=== PATIENT | female | born 1995 | race Caucasian/White ===

== ENCOUNTER 2020-11-26 11:30 | Emergency (ER) | payer OTHER, MEDICAID, SELFPAY ==
[2020-11-26 11:31] VITALS: BP 137/85; PULSE 59; RESP 16; TEMP 36.4; O2SAT 99; BMI 27.6
--- NOTE | 2020-11-26 11:52 | CT_ITS ---
STUDY: CT ABDOMEN AND PELVIS WITHOUT CONTRAST REASON FOR EXAM: Female, 25 years old. RUQ pain, abdominal distention -- PO CONTRAST. The patient received IV contrast is beginning at a different institution. RADIATION DOSAGE (If Supplied By Facility): CTDIvol = ( 9.07 ) mGy, DLP = ( 471.37 ) mGycm TECHNIQUE: Transaxial images were obtained from the dome of the diaphragm to the symphysis pubis without oral contrast, and without intravenous contrast. Sagittal and coronal images were reconstructed. Individualized dose optimization techniques were used for this CT. COMPARISON: None. FINDINGS: Minimal degree of increased markings at the right lung base suggestive of dependent atelectasis. The visualized portions of the heart are within normal limits. Normal liver. The gallbladder is not visualized and most likely secondary to prior cholecystectomy. Normal spleen. Normal pancreas. Normal bilateral adrenal glands. Multiple small areas of the calcifications seen in the right renal cortex. Focal calcific density is also seen in the upper pole cortex of the left kidney. Medullary sponge kidney should be ruled out. There is no evidence of ureteral obstruction. Normal left kidney. Normal visualized stomach. Normal small intestine. Normal colon. The appendix is visualized and appears normal. Normal abdominal aorta. Normal inferior vena cava. Normal retroperitoneum. Normal urinary bladder. Normal abdominal wall. Normal osseous structures. CT/Abdomen/Pel W ORAL Cont Only IMPRESSION: Multifocal areas of increased attenuation in the cortex of both kidneys suggestive of possible medullary sponge kidneys. Electronically Signed: Austin Randolph MD at 13:46 EDT , Service support ,
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
[2020-11-26 12:36] LABS: Mucous, Urine 0 SEEN /hpf (<or=2+)
[2020-11-26 12:39] LABS: Color, Urine Yellow (Yellow); Glucose, Dipstick Normal (Normal); Ketone-Dipstick Negative (Negative); Leukocyte Esterase-Dipstick 25 /ul (Negative); Nitrite-Dipstick Negative (Negative); Occult Blood-Urine 250 /ul (Negative); Protein-Dipstick Negative (Negative); Specific Gravity, Urine 1.015 (1.002-1.030); Urine Bilirubin Dipstick Negative (Negative); Urine Clarity Clear (Clear); Urine Urobilinogen Normal (Normal)
[2020-11-26 12:40] LABS: Absolute Lymphocyte Count 2.22 X10^3/uL (0.83-4.51); Absolute Neutrophil Count 6.3 X10^3/uL (2.0-7.7); Basophil# 0.05 X10^3/uL; Basophil% 0.5 % (0-1); Eosinophil# 0.15 X10^3/uL; Eosinophils% 1.6 % (0-5); Hemoglobin 13.5 g/dL (12.0-15.0); Lymphocyte # 2.22 X10^3/ul (0.83-4.51); Lymphocyte % 23.8 % (19-41); Mean Corp Hgb Conc 32.1 g/dL (32-36); Mean Corpuscular Hgb 28.8 pg (27.0-32.0); Mean Corpuscular Volume 89.7 fL (81-99); Mean Platelet Vol. 10.8 fl (6.2-12.0); Monocyte% 6.4 % (0-10); NRBC Flagged by Analyzer 0 % (0-5); Neutrophil # 6.26 X10^3/uL (2.7-7.7); Neutrophil % 67.4 % (47-70); POSITIVE COUNT YES; Platelet Count 241 K/mm3 (150-450); RBC Distribution Width CV 11.9 % (11.6-14.6); RBC Distribution Width SD 38.5 fl (35.1-43.9); Red Blood Count 4.68 M/mm3 (4.2-5.4); White Blood Count 9.3 K/mm3 (4.4-11.0)
[2020-11-26] MEDS: Ondansetron 4 MG/2 ML Vial IV (12:40)
[2020-11-26] MEDS: Famotidine 200 MG/20 ML MDV 20 MG in 0.9% Normal Saline (Pres. free 8 ML 300 MG IV (12:40)
[2020-11-26] MEDS: Morphine 4 MG/ML Syringe IV (12:40)
[2020-11-26 12:46] LABS: Red Blood Cells-Urine 50-100 SEEN /hpf (0-5); White Blood Cells 0-5 SEEN /hpf (0-5)
[2020-11-26 12:47] LABS: Bacteria RARE /hpf (None Seen); Internal QC Validated? YES +Cl - CLEAR BKGD; Pregnancy, Urine Negative Negative; Squamous Epithelial Cells - UA 0-5 SEEN /hpf (5-10)
[2020-11-26 13:10] LABS: AST(SGOT) 38 U/L (15-37); Alanine Aminotransfer ALT/SGPT 32 U/L (13-56); Albumin, Serum 3.8 g/dL (3.2-5.0); Alkaline Phosphatase 53 U/L (45-117); Anion Gap 4 (5-15); BUN 6 mg/dL (7-18); Calcium,Total 8.9 mg/dL (8.5-10.1); Chloride 107 mmol/L (98-107); Creatinine, Serum 0.75 mg/dL (0.55-1.02); EST Glomerular Filtration Rate 99 mL/min (>60); Est Glom Filt Rate - Afr Amer 119 mL/min (>60); Estimated Creatinine Clearance 110.54 ml/min; Globulin 3.8 g/dL (2.2-4.2); Glucose 87 mg/dL (74-106); Lipase 80 U/L (73-393); Potassium 4.3 mmol/L (3.5-5.1); Protein, Total 7.6 g/dL (6.4-8.2); Sodium Level 137 mmol/L (136-145)
[2020-11-26 13:50] VITALS: RESP 16
[2020-11-26 14:30] VITALS: BP 129/72; PULSE 59; RESP 16; TEMP 36.8; O2SAT 100
== END 2020-11-26 14:31 | disposition home or self-care (01) ==
PROVIDERS: Emergency Provider Emergency Medicine; PCP Internal Medicine
DX: R10.11 Right upper quadrant pain (principal); R31.9 Hematuria, unspecified; R11.2 Nausea with vomiting, unspecified; G40.909 Epilepsy, unspecified, not intractable, without status epilepticus; Z90.49 Acquired absence of other specified parts of digestive tract; Z90.721 Acquired absence of ovaries, unilateral; Z79.899 Other long term (current) drug therapy
CPT/HCPCS: 74176; 80053; 81001; 81025; 83690; 85025; 96365; 96375; 99285; A4216; J2405; J3490

== ENCOUNTER 2021-04-21 11:15 | Emergency (ER) | payer OTHER, MEDICAID, SELFPAY ==
[2021-04-21 11:17] VITALS: BP 123/86; PULSE 70; RESP 18; TEMP 36.4; O2SAT 100; BMI 27.1
[2021-04-21 13:00] VITALS: BP 106/79; PULSE 56; RESP 12; O2SAT 97
[2021-04-21 13:06] LABS: Absolute Lymphocyte Count 1.13 X10^3/uL (0.83-4.51); Absolute Neutrophil Count 1.8 X10^3/uL (2.0-7.7); Basophil# 0.01 X10^3/uL; Basophil% 0.3 % (0-1); Eosinophil# 0.04 X10^3/uL; Eosinophils% 1.2 % (0-5); Hematocrit 39.3 % (37-47); Hemoglobin 13.2 g/dL (12.0-15.0); Lymphocyte # 1.13 X10^3/ul (0.83-4.51); Lymphocyte % 34.7 % (19-41); Mean Corp Hgb Conc 33.6 g/dL (32-36); Mean Corpuscular Hgb 29.1 pg (27.0-32.0); Mean Corpuscular Volume 86.6 fL (81-99); Mean Platelet Vol. 10.3 fl (6.2-12.0); Monocyte% 9.2 % (0-10); NRBC Flagged by Analyzer 0 % (0-5); Neutrophil # 1.77 X10^3/uL (2.7-7.7); Neutrophil % 54.3 % (47-70); Platelet Count 174 K/mm3 (150-450); RBC Distribution Width CV 11.5 % (11.6-14.6); RBC Distribution Width SD 36.5 fl (35.1-43.9); Red Blood Count 4.54 M/mm3 (4.2-5.4); White Blood Count 3.3 K/mm3 (4.4-11.0)
[2021-04-21 13:17] LABS: AST(SGOT) 20 U/L (15-37); Alanine Aminotransfer ALT/SGPT 25 U/L (13-56); Albumin, Serum 3.6 g/dL (3.2-5.0); Alkaline Phosphatase 44 U/L (45-117); Anion Gap 7 (5-15); BUN 7 mg/dL (7-18); BUN/Creat Ratio 9.4 RATIO (10-20); Calcium,Total 8.4 mg/dL (8.5-10.1); Chloride 104 mmol/L (98-107); Creatinine, Serum 0.74 mg/dL (0.55-1.02); EST Glomerular Filtration Rate 99 mL/min (>60); Est Glom Filt Rate - Afr Amer 120 mL/min (>60); Estimated Creatinine Clearance 112.03 ml/min; Globulin 3.7 g/dL (2.2-4.2); Glucose 118 mg/dL (74-106); Potassium 3.2 mmol/L (3.5-5.1); Protein, Total 7.3 g/dL (6.4-8.2); Sodium Level 141 mmol/L (136-145)
--- NOTE | 2021-04-21 14:15 | EDS_ITS ---
HPI History of Present Illness Chief Complaint: Numb/Ting Narrative Narrative: Patient presents with tingling in fingers and toes as well as arms and legs and around her mouth. This started yesterday, she was just diagnosed with COVID-19. She has no shortness of breath fevers or chills. She has no myalgias or any kind of pain. [facility] Medical History Seizures Home Medications Zonisamide [Zonegran] 200 mg PO BID 04/27/13 [History Last Taken Unknown] acetaminophen [Tylenol] 325 - 650 mg PO Q6H PRN PRN 04/27/13 [History Last Taken Unknown] ondansetron HCl 8 mg PO Q8H PRN PRN 04/27/13 [History Last Taken Unknown] oxycodone-acetaminophen 1 tab PO PRN PRN #30 tablet 05/02/13 [Rx Last Taken Unknown] ondansetron 4 mg PO Q8H PRN PRN #10 tab 11/26/20 [Rx Last Taken Unknown] oxycodone-acetaminophen [Percocet] 1 tab PO Q8H PRN 3 Days #12 tab 11/26/20 [Rx Last Taken Unknown] potassium chloride 20 meq PO DAILY #7 tab 04/21/21 [Rx Last Taken Unknown] Allergy/AdvReac Type Severity Reaction Status Date / Time lorazepam [From Ativan] AdvReac Severe Other Verified 04/21/21 11:19 acetaminophen [From Vicodin] AdvReac Intermediate Other Verified 04/21/21 11:19 hydrocodone bitartrate AdvReac Intermediate Other Verified 04/21/21 11:19 [From Vicodin] lamotrigine [From Lamictal] AdvReac Rash Verified 04/21/21 11:19 Social History Smoking Status: Never smoker ROS ROS ED ROS Narrative Past medical history: Reviewed Medications: Reviewed Social history: Noncontributory Review of systems: All systems negative except as indicated General: No fever Eyes: No visual changes ENT: No upper airway congestion, normal voice Neck: No neck pain Cardiovascular: No chest pain Respiratory: No shortness of breath or cough Gastrointestinal: No abdominal pain, nausea vomiting or diarrhea Genitourinary: No dysuria Musculoskeletal: Denies myalgias no difficulty with ambulation Skin: No rash Neurological: No memory loss, confusion or any focal weakness. Paresthesias as above Psych: No recent behavioral changes Hematologic: No easy bleeding or easy bruising EXAM Physical Exam Narrative Exam Narrative: Physical exam General: Well nourished, Well developed, No Acute Distress Head: Normocephalic, Atraumatic Eyes: Conjunctiva not pale ENT: Moist mucous membranes Neck: Supple, Nontender, No lymphadenopathy Cardiovascular: Regular rate, Regular rhythm Respiratory: No distress, CTA bilaterally Abdomen: Soft, Nontender, Nondistended Back: Nontender, Normal Inspection. Negative for: CVA tenderness Extremities: Nontender, No edema Skin: Normal color, No rash Neurological: Alert, Normal Strength, Normal Sensation Psychological: Normal affect Const Vital Signs: 04/21/21 11:17 04/21/21 13:00 Temperature 97.5 F L Temperature Source Temporal Pulse Rate 70 56 L Respiratory Rate 18 12 Blood Pressure 123/86 H 106/79 Blood Pressure Mean 98 88 Pulse Ox 100 97 Oxygen Delivery Method Room Air Room Air MDM MDM MDM Narrative Medical decision making narrative: Patient is found to be slightly hypokalemic which I will treat otherwise she appears well I will discharge her in stable condition Lab Data Labs: Laboratory Results - last 24 hr 04/21/21 04/21/21 12:02 12:02 WBC 3.3 L RBC 4.54 Hgb 13.2 Hct 39.3 MCV 86.6 MCH 29.1 MCHC 33.6 RDW Std Deviation 36.5 RDW Coeff of Sebastian 11.5 L Plt Count 174 MPV 10.3 Immature Gran % (Auto) 0.300 Neut % (Auto) 54.3 Lymph % (Auto) 34.7 [place] % (Auto) 9.2 Eos % (Auto) 1.2 Baso % (Auto) 0.3 Absolute Neuts (auto) 1.8 L Absolute Lymphs (auto) 1.13 Nucleated RBC % 0 Sodium 141 Potassium 3.2 L Chloride 104 Carbon Dioxide 30.0 Anion Gap 7 BUN 7 Creatinine 0.74 Estim Creat Clear Calc 112.03 Est GFR (MDRD) Af Amer 120 Est GFR (MDRD) Non-Af 99 BUN/Creatinine Ratio 9.4 L Glucose 118 H Calcium 8.4 L Total Bilirubin 0.40 AST 20 ALT 25 Alkaline Phosphatase 44 L Total Protein 7.3 Albumin 3.6 Globulin 3.7 Albumin/Globulin Ratio 1.0 Discharge Plan Triage Chief Complaint: Numb/Ting ED Provider: Rickie Richards Dx/Rx/DC Orders Clinical Impression: Acute hypokalemia, COVID Instructions: Coronavirus Disease 2019 (COVID-19): Overview, ED Hypokalemia Prescriptions: New potassium chloride 20 mEq tablet extended release 20 meq PO DAILY Qty: 7 RF: 0 No Action acetaminophen [Tylenol] 325 MG tablet 325 - 650 mg PO Q6H PRN PRN (Reason: Headache,Aches Or Pain) RF: 0 ondansetron HCl 8 MG tablet 8 mg PO Q8H PRN PRN (Reason: Nausea/Vomiting) RF: 0 Zonisamide [Zonegran] 100 MG capsule 200 mg PO BID RF: 0 oxycodone-acetaminophen 1 TABLET tablet 1 tab PO PRN PRN (Reason: Mod-Severe (Pain Scale 6-10)) Qty: 30 RF: 0 oxycodone-acetaminophen [Percocet] 5-325 mg tablet 1 tab PO Q8H PRN (Reason: pain) 3 Days Qty: 12 RF: 0 ondansetron 4 mg tablet,disintegrating 4 mg PO Q8H PRN PRN (Reason: Nausea) Qty: 10 RF: 0 Primary Care Provider: Maggy Dash Referrals: Maggy Dash MD [Primary Care Provider] -
[2021-04-21 14:30] VITALS: BP 114/78; PULSE 61; RESP 11; O2SAT 98
== END 2021-04-21 14:31 | disposition home or self-care (01) ==
LOC: ED 12:46
PROVIDERS: Emergency Provider Emergency Medicine; PCP Internal Medicine
DX: U07.1 COVID-19 (principal); E87.6 Hypokalemia; G40.909 Epilepsy, unspecified, not intractable, without status epilepticus; Z79.899 Other long term (current) drug therapy
CPT/HCPCS: 80053; 85025; 99283; A4216

== ENCOUNTER 2021-08-12 16:03 | Outpatient (CLI) | payer OTHER, MEDICAID, SELFPAY ==
--- NOTE | 2021-08-12 16:10 | CT_ITS ---
STUDY: CT ABDOMEN AND PELVIS WITH AND WITHOUT CONTRAST REASON FOR EXAM: Female, 26 years old. GROSS HEMATURIA RADIATION DOSAGE (If Supplied By Facility): CTDIvol = ( 11.00 ) mGy, DLP = ( 2198.73 ) mGycm TECHNIQUE: Transaxial images were obtained from the dome of the diaphragm to the symphysis pubis without oral contrast. ISOVUE 370-100ml was administered. Sagittal and coronal images were reconstructed. Individualized dose optimization techniques were used for this CT. COMPARISON: None. FINDINGS: The visualized lung bases are unremarkable. The visualized portions of the heart are within normal limits. Normal liver. Normal gallbladder and extrahepatic biliary system. Normal spleen. Normal pancreas. Normal bilateral adrenal glands. Normal right kidney. Normal left kidney. No renal stones are identified. Small bilateral renal cysts. The visualized portions of the opacified renal collecting systems and ureters are unremarkable. Normal visualized stomach. Normal small intestine. Normal colon. The appendix is visualized and appears normal. Normal abdominal aorta. Normal inferior vena cava. Normal retroperitoneum. Normal urinary bladder. Prominent uterus and right adnexa. Normal abdominal wall. Normal osseous structures. CT/CT Abd/Pelvis W/WO Contrast IMPRESSION: Prominent uterus and right adnexa with increased pelvic and adnexal vascularity may indicate pelvic congestion syndrome in the appropriate clinical setting. No renal stones or focal parenchymal abnormality of the kidneys. The visualized portions of the opacified renal collecting systems and ureters are unremarkable. Electronically Signed: Barney Mendez MD at 17:36 EST ,
== END 2021-08-12 23:59 | disposition home or self-care (01) ==
LOC: CT 16:07
PROVIDERS: PCP Internal Medicine; Referring Provider Urology; Visit Provider Urology
DX: R31.0 Gross hematuria (principal)
CPT/HCPCS: 74178; Q9967

== ENCOUNTER 2021-08-20 11:38 | Outpatient (CLI) | payer OTHER, MEDICAID, SELFPAY ==
--- NOTE | 2021-08-20 11:40 | US_ITS ---
STUDY: ULTRASOUND OF THE FEMALE PELVIS - COMPLETE REASON FOR EXAM: Female, [address] -- LMP: Unknown. Prior ablation. TECHNIQUE: Transabdominal and Transvaginal TECHNICAL QUALITY: Adequate. COMPARISON: Comparison is made with prior CT scan dated 08/12/2021 FINDINGS: The uterus is retroverted and is in a midline position. The uterus measures 6.8 cm x 5.1 cm x 4.3 cm. Normal uterine cervix. The endometrium measures 3 mm in thickness, and is hyperechoic. There is no demonstrated endometrial mass. There is no demonstrated myometrial mass. I.U.D. - The patient does not have an I.U.D. The right ovary is visualized. The right ovary measures 3.5 cm x 2.4 cm x 2.5 cm. There is no right ovarian cyst or ovarian mass. There is no visualized right adnexal mass or complex lesion. There is normal arterial and normal venous vascularity. The patient is status post left nephrectomy. There is no fluid in the cul-de-sac. The pre void volume of the bladder was 351 ml. US/Pelvic (Non ) IMPRESSION: Normal female pelvis. Status post left oophorectomy. Electronically Signed: Austin Randolph MD at 15:42 EST ,
--- NOTE | 2021-08-20 11:57 | US_ITS ---
STUDY: ULTRASOUND OF THE FEMALE PELVIS - COMPLETE REASON FOR EXAM: Female, [address] -- LMP: Unknown. Prior ablation. TECHNIQUE: Transabdominal and Transvaginal TECHNICAL QUALITY: Adequate. COMPARISON: Comparison is made with prior CT scan dated 08/12/2021 FINDINGS: The uterus is retroverted and is in a midline position. The uterus measures 6.8 cm x 5.1 cm x 4.3 cm. Normal uterine cervix. The endometrium measures 3 mm in thickness, and is hyperechoic. There is no demonstrated endometrial mass. There is no demonstrated myometrial mass. I.U.D. - The patient does not have an I.U.D. The right ovary is visualized. The right ovary measures 3.5 cm x 2.4 cm x 2.5 cm. There is no right ovarian cyst or ovarian mass. There is no visualized right adnexal mass or complex lesion. There is normal arterial and normal venous vascularity. The patient is status post left nephrectomy. There is no fluid in the cul-de-sac. The pre void volume of the bladder was 351 ml. US/Transvaginal Non- IMPRESSION: Normal female pelvis. Status post left oophorectomy. Electronically Signed: Austin Randolph MD at 15:42 EST ,
== END 2021-08-20 23:59 | disposition home or self-care (01) ==
LOC: US 11:38
PROVIDERS: PCP Internal Medicine; Referring Provider Urology; Visit Provider Urology
DX: R93.5 Abnormal findings on diagnostic imaging of other abdominal regions, including retroperitoneum (principal)
CPT/HCPCS: 76830; 76856

== ENCOUNTER 2021-10-20 05:32 | Day surgery (SDC) | payer OTHER, MEDICAID, SELFPAY ==
[2021-10-16 12:58] LABS: Absolute Lymphocyte Count 1.95 X10^3/uL (0.83-4.51); Basophil# 0.02 X10^3/uL; Basophil% 0.4 % (0-1); Eosinophil# 0.07 X10^3/uL; Eosinophils% 1.3 % (0-5); Hematocrit 37.6 % (37-47); Hemoglobin 12.8 g/dL (12.0-15.0); Lymphocyte # 1.95 X10^3/ul (0.83-4.51); Lymphocyte % 36.1 % (19-41); Mean Corpuscular Hgb 29.8 pg (27.0-32.0); Mean Corpuscular Volume 87.6 fL (81-99); Mean Platelet Vol. 9.6 fl (6.2-12.0); Monocyte# 0.31 X10^3/uL; Monocyte% 5.7 % (0-10); NRBC Flagged by Analyzer 0 % (0-5); Neutrophil # 3.04 X10^3/uL (2.7-7.7); Neutrophil % 56.3 % (47-70); Platelet Count 233 K/mm3 (150-450); RBC Distribution Width CV 11.7 % (11.6-14.6); RBC Distribution Width SD 37.4 fl (35.1-43.9); Red Blood Count 4.29 M/mm3 (4.2-5.4); White Blood Count 5.4 K/mm3 (4.4-11.0)
[2021-10-16 13:05] LABS: Partial Thromboplast Time 29.6 Seconds (24.1-36.2)
[2021-10-16 13:19] LABS: Magnesium 1.8 mg/dL (1.6-2.6)
--- NOTE | 2021-10-18 04:53 | HP.PCM_ITS ---
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 Qualified Required: No Is patient in pain?: No Allergies lorazepam [From Ativan] Adverse Reaction (Severe, Verified 09/10/21 10:46) Other acetaminophen [From Vicodin] Adverse Reaction (Intermediate, Verified 09/10/21 10:46) Other hydrocodone bitartrate [From Vicodin] Adverse Reaction (Intermediate, Verified 09/10/21 10:46) Other lamotrigine [From Lamictal] Adverse Reaction (Verified 09/10/21 10:46) Rash Medications cholecalciferol (vitamin D3) 25 mcg (1,000 unit) capsule 25 mcg PO DAILY 09/10/21 [History Confirmed 10/09/21] venlafaxine 75 mg capsule,extended release 24 hr 75 mg PO DAILY #30 cap 09/10/21 [Rx Confirmed 10/09/21] Is last menstrual period known: No Post menopausal: No Patient : No : No PFSH Medical History Anxiety Seizures Surgical History H/O oophorectomy H/O unilateral salpingectomy S/P endometrial ablation Social History Smoking Status: Never smoker alcohol intake: never substance use type: does not use what type of physical activity do you participate in: none do you feel safe at home: Yes 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 she has chronic pelvic pain and dyspareunia. Female Reproductive History Menopausal Symptoms: No hot flashes, No night sweats, No difficulty concentrating and No change in libido Pregancy History 4 Elective abortions Hx Para 4 Spontaneous abortions Hx # Term Pregnancies Ectopic pregnancies Hx # Pregnancies Multiple births # of living children 4 Past Pregnancies Del. Date Name GA/Weeks Outcome Route Bth Weight Infant Gen Labor Lgth Anesthesia Del Locatn Provider FOB Unknown 2012 Maximus live - full term JV Unknown 2014 Georges live - full term Anderson Unknown 2017 Jorje live - full term [facility] Community Unknown 2019 Presley live - full term Cho ROS Const Constitutional: Denies fatigue, night sweats, weight gain or weight loss ENT ENT: Reports system reviewed and no additional complaints, except as documented Cardio Card: Denies chest pain Resp Resp: Denies cough or dyspnea GI GI: Reports as per HPI; Denies constipation, nausea or vomiting : Reports as per HPI; Denies hot flashes, nipple discharge, vaginal discharge, vaginal dryness, vaginal odor or vaginal pruritus Musc Musc: Denies arthralgias, back pain or muscle weakness Skin Skin/Breast: Denies alopecia, change in hair, dry skin, breast mass, breast pain, breast skin changes or nipple discharge Neuro Neuro: Reports system reviewed and no additional complaints, except as documented Psych Psych: Reports system reviewed and no additional complaints, except as documented; Denies change in libido or difficulty concentrating Endo Endo: Denies cold intolerance, excessive sweating, heat intolerance or polydipsia Anthony/Lymph Hematologic/Lymphatic: Denies easy bleeding, Denies easy bruising and Denies lymphadenopathy Exam Const General: cooperative, healthy appearing, comfortable, no acute distress and well developed Orientation: alert [facility] Head: normal to inspection and normocephalic Ears: hearing grossly normal bilaterally and external ears normal Nose: external nose normal and nares normal Face and sinus: normal facial exam Neck Neck: normal visual inspection and no lymphadenopathy Thyroid: thyroid normal Chest Chest palpation & inspection: normal inspection of the chest Resp Effort & Inspection: normal respiratory effort Auscultation: clear to auscultation bilaterally Cardio Rate: regular rate Rhythm: regular rhythm Heart Sounds: S1 normal and S2 normal GI Inspection: normal to inspection and non-distended Palpation: soft and no hepatosplenomegaly General: bladder normal to palpation External Female Exam: normal external appearance and normal appearance of the urethra Urethra: normal appearance of the urethra, normal palpation and no discharge Speculum Exam - Vagina: normal appearance of the vagina and normal vaginal discharge Speculum Exam - Cervix: normal appearance of the cervix and nontender Bimanual Exam- Vagina & Uterus: normal bimanual exam, uterine size normal, bladder normal to palpation, uterine shape normal, No tender, consistency normal, No normal palpation (Severe tenderness to uterine manipulation), non- tender and fixed (Posterior with limited mobility) Bimanual Exam- Adnexa, other: normal adnexae, adnexae mobile, no masses and normal Pelvic Support: normal Musc Other: gross motor intact no deficits, full bilateral strength Skin General: no rashes or lesions noted Neuro General: patient alert, patient awake, moves all extremities and no focal motor deficits Motor: muscle tone normal throughout Extrem General: normal to inspection and no pedal edema Psych Appearance: grossly normal Mental Status: mental status grossly normal Affect: normal affect Speech and Movement: speech and movement normal Coding Level of Care Code No Charge Diagnoses Chronic pelvic pain in female R10.2; G89.29 Dyspareunia due to medical condition in female N94.19 History of endometrial ablation Z98.890 Assessment and Plan Assessment and Plan (1) Chronic pelvic pain in female: Status: Chronic Comment: post ablation pelvic pain syndrome discussed medical versus surgical management, also suspect endometriosis will proceed with laparoscopic-assisted vaginal hysterectomy right salpingectomy. (2) Dyspareunia due to medical condition in female: Status: Acute Comment: likely secondary to post ablation pelvic pain syndrome Plan - Dr. Shara Martinez MD: After discussing the patient's diagnosis and treatment plan options, patient wishes to proceed with surgical management. I have discussed with the patient the risks, benefits, and alternatives of the procedure which include but are not limited to risks of anesthesia, bleeding, infection, possible damage to bowel, bladder, or surrounding vasculature which could lead to additional surgery to evaluate any complications. Patient agrees to procedure and wishes to proceed. ACOG/uptodate references given for additional information regarding procedure. (3) History of endometrial ablation: Status: Acute Comment: for heavy bleeding. now has severe pelvic pain UPDATE- I have seen the patient and performed any clinically relevant updates to the history and physical exam. Shara Martinez MD
[2021-10-20] VITALS (13 sets, daily range): BP systolic 119–137; BP diastolic 60–84; PULSE 62–75; RESP 12–18; TEMP 36.2–37.1; O2SAT 98–100; BMI 26.6
[2021-10-20] MEDS: Enoxaparin 40 MG/0.4 ML Syringe SC (06:22)
[2021-10-20] MEDS: Gabapentin 600 MG Tablet PO (06:30)
[2021-10-20] MEDS: Phenazopyridine 95 MG Tablet 190 MG PO (06:30)
[2021-10-20] MEDS: Scopolamine 1mg/72hr Patch 1 PATCH TD (06:30)
[2021-10-20] MEDS: Celecoxib 200 MG Capsule 400 MG PO (06:30)
[2021-10-20] MEDS: Acetaminophen 500 MG Tablet 1000 MG PO (06:31)
[2021-10-20 06:41] LABS: Bedside Glucose 110 mg/dL (74-106)
[2021-10-20] MEDS: dexAMETHasone 10 MG/ML Vial 8 MG IV (06:48)
[2021-10-20] MEDS: Lactated Ringers 1,000 ML 40 ML IV (06:53)
[2021-10-20 07:13] LABS: Internal QC Validated? YES +Cl - CLEAR BKGD; Pregnancy, Urine Negative Negative
--- NOTE | 2021-10-20 07:30 | HYST_PTH ---
PATIENT: KIARRA HAIDER [place] [facility] [id number] AGE/SX: / ROOM: RE10/20/[address]: Dr. Shara Martinez MD : 1995 BED: DIS: 10/20/2021 SPEC #: [id number] RECD: 10/20/21 10:25 STATUS: COCO TERRENCE #: [id number] MIRACLE: 10/20/21 07:[address]: Shara Martinez DEPT: SURGICAL PATHOLOGY RECD BY: Emily Ronquillo ENTERED: 10/20/21 11:58 SP TYPE: HYSTERECT OTHR DR: Dr. Maggy Dash MD Tissues: Uterus, NOS Procedures: Surgery Specimen Level V HEADER OPERATION: ERAS, hysterectomy, LAVH, salpingectomy, cystoscopy PRE-OP DIAGNOSIS: Chronic pelvic pain, dyspareunia, history of endometrial ablation TISSUE SUBMITTED: Uterus, cervix, right fallopian tube MICROSCOPIC DIAGNOSIS Uterus, cervix, right fallopian tube, hysterectomy and right salpingectomy: Cervix ? mild chronic inflammation. Endometrium ? proliferative endometrium. Myometrium - no pathologic diagnosis. Right fallopian tube - no pathologic diagnosis. EVANGELIST:emmanuel 10/21/2021 MICROSCOPIC DESCRIPTION Slides are reviewed. GROSS DESCRIPTION Received in fixative is one container labeled with the patient's name and designated uterus. The specimen consists of a uterus with attached cervix and attached right fallopian tube. The uterus with cervix measures 8.5 x 7 x 4.5 cm and weighs 95 gm. The ectocervix is unremarkable. The cervical os is oval in contour. The endocervical canal measures 3 cm in length and is grossly unremarkable. The elongated endometrial cavity measures 3 x 1 cm. The reddish-patino endometrium measures up to 0.1 cm in thickness. The myometrium measures 2.3 cm in greatest dimension and is free of mass lesions. The fallopian tube measures 5 cm in length and 0.6 cm in average diameter. The fimbriated end has a normal villous appearance. Communications Administrator sections are submitted in seven cassettes as follows: 1 - anterior cervix, 2 - posterior cervix, 3 & 4 - anterior uterine wall, 5 & 6 - posterior uterine wall, 7 - right fallopian tube. / AM:emmanuel 10/20/2021 TC:3 CPT: 86837
[2021-10-20] MEDS: Cefazolin 2 GM in 0.9% Normal Saline 100 ML IV (07:36)
[2021-10-20] MEDS: Bupivacaine 0.25% 30 ML Vial (08:00)
--- NOTE | 2021-10-20 09:21 | OP.PCM_ITS ---
Problems Associated Problem List Diagnoses (1) History of endometrial ablation: (2) Chronic pelvic pain in female: (3) Dyspareunia due to medical condition in female: Report of Operation Date of Procedure: 10/20/21 Pre-Operative Diagnosis: see problem list Post-Operative Diagnosis: same Surgery/Procedure Performed:: NESHA Surgeon: Shara Martinez windows server architect: Garrick Morel Type of Anesthesia: General Specimen's removed: uterus, tube right Drains: hernandez Estimated Blood Loss (mL): 200 Fluids Replaced: crystalloid Description of Procedure: Patient received preoperative antibiotics and SCDs were on preoperatively. Patient was taken back to the operating room and placed in the dorsal lithotomy position. General anesthesia was induced and patient was prepped and draped in normal sterile fashion. Uterine manipulator was placed inside the uterus and Hernandez catheter placed in the bladder. The umbilicus was grasped with towel clamps and an intraumbilical incision was made after injecting with quarter percent Marcaine and a Veress needle entered into the abdomen confirmed to be intra-abdominal with a low opening pressure. Abdomen was insufflated with CO2 gas and the Veress needle removed and the 5 mm trocar was placed under direct visualization without complication. Right and left lower quadrants were transilluminated and injected with quarter percent Marcaine and 5 mm ports placed under direct visualization. Pelvis was well visualized see operative findings for additional information. right fallopian tube was identified and transected with the LigaSure device across the mesosalpinx to the level of the utero-ovarian ligament which was also transected with the LigaSure device. The broad ligament was opened up by transecting the round ligament bilaterally and skeletonizing the uterine vessels bilaterally and creating a bladder flap using the LigaSure device. The uterine arteries were transected bilaterally with good visualization of the bladder and the ureters were seen to be inferior lateral to the operative area. Attention was then paid to the vaginal portion of the procedure and the cervix was grasped with Francisco Javier clamps and circumferentially injected with dilute vasopressin. A circumferential incision was made and the vaginal mucosa was mobilized off posteriorly and the cul-de-sac entered into sharply and a longneck speculum placed. The anterior cul-de-sac was then identified and entered into sharply. The uterosacral ligaments were clamped cut and suture ligated with 0 Monocryl bilaterally followed by the cardinal ligaments which were clamped cut and suture ligated bilaterally with 0 Monocryl. The uterus serially descended and was removed without difficulty. Pelvic sidewall pedicles were checked and noted to have excellent hemostasis. The vaginal mucosa was reapproximated incorporating the posterior peritoneum. mc calls stitch with 2-0 pds was placed to support the apex. This was reapproximated using 0 Vicryl [id number] sutures. Excellent hemostasis was noted. The cystoscopy was then performed and bilateral ureteral strong spray was noted and the bladder was noted to have no abnormality or lesions seen. The pelvis and cul-de-sac were well visualized and no significant active bleeding noted but some raw areas were seen on the peritoneum and therefore floseal was applied. right ovary had bleeding that was cauterized with the ligasure. Pressure was taken down and the areas visualized and noted of excellent hemostasis. All ports were removed under direct visualization without complication and the abdomen was desufflated of air. The instruments were removed from the abdomen and the vaginal sweep was negative. Port sites on the abdomen were closed with 4-0 Monocryl interrupted sutures and Steri's and windows were applied. She was awoken and taken recovery in stable condition. Grafts/Implants Used: none Complications none Admit VTE Documentation VTE Present on Admission: No VTE Mechan Device Prophylaxis: SCD's VTE Pharm Prophylaxis ordered?: Yes Procedures Urinary/Genital 52xxx-59xxx: 16148 LAVH+BS/O <250gr Uterus
--- NOTE | 2021-10-20 09:30 | EX.PCM.DISCH ---
Discharge Instructions Diet Discharge Diet: No restrictions Activity May resume sexual activity in: 6 weeks Weight Bearing Status: Full weight bearing Dressing / Incision Call your doctor if your incision/area has: Continuous Slow Oozing, Sudden Increased Bleeding, Increased Pain/ Swelling, Increased Redness and Foul Smelling Discharge Call your doctor if you observe: Fever of 101 or Higher, Using more than 1 pad per hour, Shortness of breath, Chest pain and Uncontrolled pain Suture Line Care: Avoid Pulling/Pushing and Avoid Pinching/Bending Remove Dressing in: 1 week (if present) Cleanse incision/area with: Soap & Water and Keep Dressing Clean & Dry Follow Up Care Please Follow Up With: Shara Martinez MD When: Call to make an appointment with your doctor for a postop visit in 2 and 6 weeks. Test Results: Test results from this visit will be discussed in further detail at your follow-up appointment, if applicable. Discharge Plan Admission Primary Reason for Your Visit: vaginal hysterectomy Attending Provider: Shara Martinez Primary Care Provider: Maggy Dash Discharge Orders/Prescriptions Prescriptions: New oxycodone-acetaminophen [Percocet] 5-325 mg tablet 1 tab PO Q6H PRN (Reason: pain) 7 Days Qty: 20 RF: 0 naproxen [naproxen] 500 MG tablet 500 mg PO BID PRN PRN (Reason: Pain) Qty: 30 RF: 1 Continued cholecalciferol (vitamin D3) 25 mcg (1,000 unit) capsule 25 mcg PO DAILY RF: 0 venlafaxine [Effexor XR] 75 mg capsule,extended release 24hr 75 mg PO DAILY Qty: 30 RF: 12 naproxen 500 mg Tablet 500 mg PO BID PRN (Reason: Pain) RF: 0 Discontinued cyclobenzaprine [Flexeril] 10 mg Tablet 10 mg PO TID PRN (Reason: Pain) RF: 0 Referrals / Follow Up: Maggy Dash MD [Primary Care Provider] - Disposition Disposition (needs filled in before D/C Order can be placed): Home, Self Care
[2021-10-20] MEDS: Ondansetron 4 MG/2 ML Vial IV (10:04)
[2021-10-20] MEDS: Lactated Ringers @ 70 MLS/HR 70 ML IV (11:33)
[2021-10-20] MEDS: Ketorolac 30 MG/ML Syringe IV (11:39)
[2021-10-20] MEDS: oxyCODONE 5 MG Tablet PO (12:14)
[2021-10-20 13:08] LABS: Absolute Lymphocyte Count 0.65 X10^3/uL (0.83-4.51); Absolute Neutrophil Count 12.2 X10^3/uL (2.0-7.7); Basophil# 0.03 X10^3/uL; Basophil% 0.2 % (0-1); Hematocrit 37.4 % (37-47); Hemoglobin 12.3 g/dL (12.0-15.0); Lymphocyte # 0.65 X10^3/ul (0.83-4.51); Mean Corp Hgb Conc 32.9 g/dL (32-36); Mean Corpuscular Hgb 30.1 pg (27.0-32.0); Mean Corpuscular Volume 91.7 fL (81-99); Mean Platelet Vol. 9.9 fl (6.2-12.0); Monocyte# 0.11 X10^3/uL; Monocyte% 0.8 % (0-10); NRBC Flagged by Analyzer 0 % (0-5); Neutrophil % 93.6 % (47-70); Platelet Count 234 K/mm3 (150-450); RBC Distribution Width CV 11.9 % (11.6-14.6); RBC Distribution Width SD 39.6 fl (35.1-43.9); Red Blood Count 4.08 M/mm3 (4.2-5.4)
== END 2021-10-20 13:25 | disposition home or self-care (01) ==
LOC: SDC 05:34 → AC 05:34
PROVIDERS: Anesthesiology; PCP Internal Medicine; Referring Provider Obstetrics & Gynecology; Visit Provider Obstetrics & Gynecology
PROC: 0UT9FZZ Resection of Uterus, Via Natural or Artificial Opening With Percutaneous Endoscopic Assistance (ICD-10-PCS; CPT 58552; principal; 2021-10-20 07:05)
DX: N94.19 Other specified dyspareunia (principal); G89.29 Other chronic pain; F32.A Depression, unspecified; F41.9 Anxiety disorder, unspecified; Z20.822 Contact with and (suspected) exposure to COVID-19; Z79.899 Other long term (current) drug therapy
CPT/HCPCS: 58552; 00840; 36415; 81025; 82962; 83735; 85025; 85730; 86850; 86900; 86901; 87426; 88307; C9803; J7120; J2405

== ENCOUNTER 2021-10-31 15:16 | Emergency (ER) | payer OTHER, MEDICAID, SELFPAY ==
[2021-10-31 15:17] VITALS: BP 123/82; PULSE 75; RESP 16; TEMP 37.1; O2SAT 98; BMI 26.4
--- NOTE | 2021-10-31 15:40 | EDS_ITS ---
HPI <JOSIE Colin - Last Filed: 10/31/21 17:39> HPI - Female History of Present Illness Chief Complaint: Vag Bleeding Narrative Narrative: 23-year-old female had a laparoscopic hysterectomy by Dr. Martinez on 10/20/2021. She had some postop bleeding and clots but it had significantly slowed down. She did have a large clot a few days ago and was seen in APPLICATION SUPPORT ADMINISTRATOR office and had a pelvic exam that was normal. However, today while sitting to urinate she developed heavier bright red bleeding and some slight abdominal pain. Bleeding has continued which prompted her to come in. [facility] <JOSIE Colin - Last Filed: 10/31/21 17:39> [facility] Medical History (Updated 10/31/21 @ 17:27 by JOSIE Colin) Anxiety Depression History of IBS Injury of head and neck Non-smoker Seizures Wears glasses Home Medications venlafaxine 75 mg capsule,extended release 24 hr 75 mg PO DAILY #30 cap 09/10/21 [Rx Last Taken Unknown] naproxen 500 mg PO BID PRN PRN #30 tab 10/20/21 [Rx Last Taken Unknown] Allergy/AdvReac Type Severity Reaction Status Date / Time lorazepam [From Ativan] AdvReac Severe Other Verified 10/31/21 15:17 hydrocodone bitartrate AdvReac Intermediate Other Verified 10/31/21 15:17 [From Vicodin] lamotrigine [From Lamictal] AdvReac Rash Verified 10/31/21 15:17 Surgical History H/O oophorectomy H/O unilateral salpingectomy Hx laparoscopic cholecystectomy S/P endometrial ablation S/P laparoscopic assisted vaginal hysterectomy (LAVH) Social History Smoking Status: Never smoker alcohol intake: never substance use type: does not use what type of physical activity do you participate in: none do you feel safe at home: Yes 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 Eyes: Negative for visual change. ENT: Negative for sore throat, ear pain, rhinorrhea. CVS: Negative for palpitations, chest pain, syncope. Respiratory: Negative for shortness of breath, cough, orthopnea. GI: Positive for abdominal pain. Negative for nausea, vomiting, diarrhea, constipation, melena, hematochezia. : Negative for dysuria, hematuria or frequency. Neuro: Negative for headache, motor/sensory dysfunction. Skin: Negative for rash, abscess, or wound. Musc: Negative for joint pain, swelling, trauma. Heme: Negative for easy bruising, bleeding, lymphadenopathy. EXAM <JOSIE Colin - Last Filed: 10/31/21 17:39> Physical Exam Narrative Exam Narrative: CONST: Patient sitting in no acute distress. EYES: Normal inspection. NECK: Normal inspection. RESP: No respiratory distress, CTAB. CVS: Regular rate and rhythm, no murmur, no gallop. ABD: Soft and nontender, no guarding or rebound, nondistended. Pelvic: Normal external genitalia with some dried blood, speculum exam shows a clot near the vaginal cuff. I cannot see any sutures or obvious abnormality. No brisk active bleeding visible. SKIN: Color normal, no rash, warm, dry, intact. EXTREMITIES: Normal appearance, no pedal edema. NEURO: Oriented x4. PSYCH: Normal affect. Const Vital Signs: 10/31/21 15:17 10/31/21 18:13 Temperature 98.7 F Temperature Source Temporal Pulse Rate 75 76 Respiratory Rate 16 18 Blood Pressure 123/82 H 124/80 H Blood Pressure Mean 95 Pulse Ox 98 Oxygen Delivery Method Room Air <Dr. lAan Jacobsen MD - Last Filed: 10/31/21 22:55> Physical Exam Const Vital Signs: 10/31/21 15:17 10/31/21 18:13 Temperature 98.7 F Temperature Source Temporal Pulse Rate 75 76 Respiratory Rate 16 18 Blood Pressure 123/82 H 124/80 H Blood Pressure Mean 95 Pulse Ox 98 Oxygen Delivery Method Room Air MDM <JOSIE Colin - Last Filed: 10/31/21 17:39> [facility] MDM Narrative Medical decision making narrative: Patient presents with vaginal bleeding after hysterectomy on 10/12. She appears well nontoxic. Vital signs within normal limits. On examination abdomen is soft with minimal tenderness over the suprapubic area. No guarding or rebound. Pelvic exam shows a blood clot in the vaginal vault but no signs of brisk active bleeding. No other abnormalities. Labs show normal hemoglobin and are unremarkable. With serial benign abdominal exams I do not feel imaging is indicated. I spoke with the patient's APPLICATION SUPPORT ADMINISTRATOR, Dr. Kelvin Keith, who agreed with discharge and has an appointment with her early next week. Patient counseled on return precautions to the ER and discharged in stable condition. 1. Vaginal bleeding post-op hysterectomy Lab Data Labs: Laboratory Results - last 24 hr 10/31/21 10/31/21 15:55 15:55 WBC 10.9 RBC 4.16 L Hgb 12.3 Hct 36.4 L MCV 87.5 MCH 29.6 MCHC 33.8 RDW Std Deviation 37.6 RDW Coeff of Sebastian 11.7 Plt Count 229 MPV 10.4 Immature Gran % (Auto) 0.400 Neut % (Auto) 69.9 Lymph % (Auto) 21.2 Owen % (Auto) 4.4 Eos % (Auto) 3.5 Baso % (Auto) 0.6 Absolute Neuts (auto) 7.6 Absolute Lymphs (auto) 2.30 Nucleated RBC % 0 Differential Comment SCANNED Sodium 138 Potassium 3.7 Chloride 106 Carbon Dioxide 29.0 Anion Gap 3 L BUN 17 Creatinine 0.68 Estim Creat Clear Calc 120.85 Est GFR (MDRD) Af Amer 134 Est GFR (MDRD) Non-Af 111 BUN/Creatinine Ratio 25.1 H Glucose 114 H Calcium 8.7 <Dr. Alan Jacobsen MD - Last Filed: 10/31/21 22:55> [facility] Narrative Medical decision making narrative: Patient is status post laparoscopic assisted vaginal hysterectomy. She has been having some intermittent vaginal bleeding and clots. No fevers chills sweats. She is eating and drinking reasonably well. Pain is reasonably well controlled. No anticoagulation. Patient awake alert no acute distress. Abdomen is benign. Pelvic exam as documented. Blood work shows stable hemoglobin. Electrolytes are overall unremarkable. The case was discussed with her neighborhood aide. They will follow-up Tuesday. Lab Data Labs: Laboratory Results - last 24 hr 10/31/21 10/31/21 15:55 15:55 WBC 10.9 RBC 4.16 L Hgb 12.3 Hct 36.4 L MCV 87.5 MCH 29.6 MCHC 33.8 RDW Std Deviation 37.6 RDW Coeff of Sebastian 11.7 Plt Count 229 MPV 10.4 Immature Gran % (Auto) 0.400 Neut % (Auto) 69.9 Lymph % (Auto) 21.2 Owen % (Auto) 4.4 Eos % (Auto) 3.5 Baso % (Auto) 0.6 Absolute Neuts (auto) 7.6 Absolute Lymphs (auto) 2.30 Nucleated RBC % 0 Differential Comment SCANNED Sodium 138 Potassium 3.7 Chloride 106 Carbon Dioxide 29.0 Anion Gap 3 L BUN 17 Creatinine 0.68 Estim Creat Clear Calc 120.85 Est GFR (MDRD) Af Amer 134 Est GFR (MDRD) Non-Af 111 BUN/Creatinine Ratio 25.1 H Glucose 114 H Calcium 8.7 Discharge Plan Triage Chief Complaint: Vag Bleeding ED Provider: Charlotte Jaimes Dx/Rx/DC Orders Clinical Impression: Post-op bleeding Instructions: After Abdominal Hysterectomy ... Prescriptions: No Action venlafaxine [Effexor XR] 75 mg capsule,extended release 24hr 75 mg PO DAILY Qty: 30 RF: 12 naproxen [naproxen] 500 MG tablet 500 mg PO BID PRN PRN (Reason: Pain) Qty: 30 RF: 1 Primary Care Provider: Maggy Dash Referrals: Maggy Dash MD [Primary Care Provider] - Activity Restrictions/Additional Instructions: Blood work today was normal. Your APPLICATION SUPPORT ADMINISTRATOR wants to see you in the office next week. If symptoms worsen prior to then such as severe abdominal pain, lightheadedness dizziness passing out etc. come back to the ER. Disposition Disposition: Home, Self Care Discharge Date/Time: 10/31/21 18:14
[2021-10-31 16:08] LABS: Absolute Neutrophil Count 7.6 X10^3/uL (2.0-7.7); Basophil# 0.06 X10^3/uL; Basophil% 0.6 % (0-1); Eosinophil# 0.38 X10^3/uL; Eosinophils% 3.5 % (0-5); Hematocrit 36.4 % (37-47); Hemoglobin 12.3 g/dL (12.0-15.0); Lymphocyte % 21.2 % (19-41); Mean Corp Hgb Conc 33.8 g/dL (32-36); Mean Corpuscular Hgb 29.6 pg (27.0-32.0); Mean Corpuscular Volume 87.5 fL (81-99); Mean Platelet Vol. 10.4 fl (6.2-12.0); Monocyte# 0.48 X10^3/uL; Monocyte% 4.4 % (0-10); NRBC Flagged by Analyzer 0 % (0-5); Neutrophil # 7.59 X10^3/uL (2.7-7.7); Neutrophil % 69.9 % (47-70); POSITIVE COUNT YES; Platelet Count 229 K/mm3 (150-450); RBC Distribution Width CV 11.7 % (11.6-14.6); RBC Distribution Width SD 37.6 fl (35.1-43.9); Red Blood Count 4.16 M/mm3 (4.2-5.4); White Blood Count 10.9 K/mm3 (4.4-11.0)
[2021-10-31 16:16] LABS: Anion Gap 3 (5-15); BUN 17 mg/dL (7-18); BUN/Creat Ratio 25.1 RATIO (10-20); Calcium,Total 8.7 mg/dL (8.5-10.1); Chloride 106 mmol/L (98-107); Creatinine, Serum 0.68 mg/dL (0.55-1.02); EST Glomerular Filtration Rate 111 mL/min (>60); Est Glom Filt Rate - Afr Amer 134 mL/min (>60); Estimated Creatinine Clearance 120.85 ml/min; Glucose 114 mg/dL (74-106); Potassium 3.7 mmol/L (3.5-5.1); Sodium Level 138 mmol/L (136-145)
[2021-10-31 17:01] LABS: Differential Comment SCANNED; Differential Indicated SCAN CRITERIA MET
[2021-10-31 18:13] VITALS: BP 124/80; PULSE 76; RESP 18
== END 2021-10-31 18:14 | disposition home or self-care (01) ==
PROVIDERS: Emergency Provider Physician Assistant; PCP Internal Medicine; Visit Provider Physician Assistant
DX: N99.820 Postprocedural hemorrhage of a genitourinary system organ or structure following a genitourinary system procedure (principal); Z90.710 Acquired absence of both cervix and uterus
CPT/HCPCS: 80048; 85025; 99282; A4216

== ENCOUNTER 2021-11-02 17:57 | Emergency (ER) | payer OTHER, MEDICAID, SELFPAY ==
[2021-11-02 17:58] VITALS: BP 123/90; PULSE 73; RESP 14; TEMP 36.9; O2SAT 97; BMI 26.6
--- NOTE | 2021-11-02 18:25 | EX.ED.DYSGE1 ---
HPI History of Present Illness Chief Complaint: Vag Bleeding Detail of Chief Complaint: Vaginal bleeding since hysterectomy September 19 Informant: patient Onset/Context/Timing Onset: Weeks Context: Sudden Onset Timing: Continuous Quality: Vaginal bleeding Location: Vaginal bleeding Current Severity: Moderate Maximum Severity: Moderate Worsened by: Uncertain Relieved by: Nothing Associated Symptoms Associated Symptoms: Lightheadedness, dyspnea and pallor Narrative Narrative: Patient is a 26-year-old who had a hysterectomy on September 19 for abnormal vaginal bleeding. She states she has had bleeding since surgery. She was seen by mildly Dr. Kelvin Keith's physician assistant dean of students. She apparently cauterized an area that was concerning for the source of bleeding. She continues to bleed. She does report lightheadedness with standing. She does report shortness of breath with walking. She has been told she looks pale. She thinks she looks pale. She denies bruising easily. She denies bleeding of her gums, hematuria or black or maroon stool. She is not on an anticoagulant. Prior similar symptoms: Yes Recent Illness/Hospitalization: Yes PFSH PFS Medical History Anxiety Depression History of IBS Injury of head and neck Non-smoker Seizures Wears glasses Home Medications venlafaxine 75 mg capsule,extended release 24 hr 75 mg PO DAILY #30 cap 09/10/21 [Rx Last Taken Unknown] naproxen 500 mg PO BID PRN PRN #30 tab 10/20/21 [Rx Last Taken Unknown] acetaminophen 325 mg capsule 325 mg PO ONCE PRN 11/02/21 [History Last Taken Unknown] oxycodone-acetaminophen 2.5 mg-325 mg tablet 1 tab PO Q8H PRN 11/02/21 [History Last Taken Unknown] Allergy/AdvReac Type Severity Reaction Status Date / Time lorazepam [From Ativan] AdvReac Severe Other Verified 11/02/21 17:58 hydrocodone bitartrate AdvReac Intermediate Other Verified 11/02/21 17:58 [From Vicodin] lamotrigine [From Lamictal] AdvReac Rash Verified 11/02/21 17:58 Surgical History H/O oophorectomy H/O unilateral salpingectomy Hx laparoscopic cholecystectomy S/P endometrial ablation S/P laparoscopic assisted vaginal hysterectomy (LAVH) Social History Smoking Status: Never smoker alcohol intake: never substance use type: does not use what type of physical activity do you participate in: none do you feel safe at home: Yes 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 ROS ROS ED Constitutional Constitutional ED: Denies chills, fever(s), subjective or sweats Eyes Eyes: Denies blurry vision, change in vision or diplopia ENT ENT ED: Denies ear pain, rhinorrhea or sore throat Cardiovascular Cardiovascular: Denies chest pain, orthopnea, palpitations, paroxysmal nocturnal dyspnea or racing heartbeat Respiratory/Chest Respiratory/Chest: Reports dyspnea and dyspnea on exertion; Denies cough, orthopnea, paroxysmal nocturnal dyspnea or sputum Gastrointestinal Gastrointestinal: Reports abdominal pain; Denies diarrhea, nausea or vomiting Genitourinary Genitourinary ED: Denies dysuria, hematuria or urinary frequency Musculoskeletal Musculoskeletal: Denies arthralgias, myalgias or neck pain Integumentary Denies Abrasions or rash Neurologic Neurologic: Reports weakness; Denies paresthesias Hematologic/Lymphatic Hematologic/Lymphatic: Reports anemia; Denies easy bleeding or easy bruising EXAM Physical Exam Const Vital Signs: 11/02/21 17:58 11/02/21 19:29 Temperature 98.4 F Temperature Source Temporal Pulse Rate 73 Pulse Rate [Lying] 61 Pulse Rate [Sitting (for 1 minute prior to obtaining)] 67 Pulse Rate [Standing (for 1 minute prior to obtaining)] 67 Respiratory Rate 14 Blood Pressure 123/90 H Blood Pressure [Lying] 131/78 H Blood Pressure [Sitting (for 1 minute prior to obtaining)] 137/88 H Blood Pressure [Standing (for 1 minute prior to obtaining)] 130/91 H Blood Pressure Mean 101 Blood Pressure Mean [Lying] 95 Blood Pressure Mean [Sitting (for 1 minute prior to obtaining)] 104 Blood Pressure Mean [Standing (for 1 minute prior to obtaining)] 104 Pulse Ox 97 Oxygen Delivery Method Room Air Positive well nourished and well developed General Appearance ED: well developed, NAD and pallor; Negative for cyanotic or diaphoretic HEENT Reports TM's clear and moist mucous membranes HEENT Narrative: Nares patent. Uvula midline. No erythema or exudate of posterior pharynx. Negative for trauma or tenderness Tympanic Membrane ED: Yes TM's clear Eyes PERRL and EOMs intact bilaterally General Eye ED: Negative for pale conjunctiva or scleral icterus Neck no lymphadenopathy, supple and no JVD Chest Wall inspection of chest normal and palpation of chest normal Resp normal respiratory effort and clear to auscultation bilaterally Cardio regular rate, regular rhythm, S1 normal heart sound, S2 normal heart sound and no murmurs GI normal to inspection, nondistended, normoactive bowel sounds GI Narrative: Tenderness near right incision port site. There is no erythema, warmth, induration or fluctuance. Palpation: soft Narrative: External genitalia normal. Vaginal Kos is normal. There are 3 sutures noted at approximately 10:00. There is oozing from there. There were several clots had to be removed. Patient's still actively bleeding bright red blood. Back/Spine no CVA tenderness Thoracic Spine / Upper Back: Negative for thoracic spinal tenderness or paraspinal muscle tenderness Extremity normal to inspection General Extremety ED: Negative for edema or tenderness General Extremity: Negative for edema Neuro oriented x3 and no sensory deficits noted Sensorium / Orientation: alert Motor Exam: strength 5/5 throughout Psych mental status grossly normal Skin no rashes or lesions noted and no wounds General Skin Exam: elasticity normal and pallor; Negative for jaundice MDM MDM MDM Narrative Medical decision making narrative: With a set of vital signs were ordered as well as hemogram. Nurses been informed to establish IV and set patient up for a pelvic exam. Case was discussed with Dr. Kelvin Keith. She agreed with the Monsel paste and packing the vagina with Curlex. She requested Vaseline impregnated gauze to be inserted prior to packing with the Curlex. The area of bleeding was covered with Monsel paste. There is no further bleeding noted. 1 inch x 36 inch Vaseline impregnated gauze was then packed against the vaginal cuff. The vagina was then packed using Kerlix. Lab Data Attestation: I reviewed the patient's lab results. Labs: Laboratory Results - last 24 hr 11/02/21 18:30 WBC 14.3 H RBC 4.35 Hgb 12.9 Hct 38.2 MCV 87.8 MCH 29.7 MCHC 33.8 RDW Std Deviation 37.3 RDW Coeff of Sebastian 11.6 Plt Count 275 MPV 9.9 Discharge Plan Triage Chief Complaint: Vag Bleeding ED Provider: Juan Carlos Ng Dx/Rx/DC Orders Clinical Impression: Vagina bleeding, Post-op bleeding Instructions: ED Post Op Wound Check, Bleeding Prescriptions: No Action venlafaxine [Effexor XR] 75 mg capsule,extended release 24hr 75 mg PO DAILY Qty: 30 RF: 12 oxycodone-acetaminophen [Percocet] 2.5-325 mg tablet 1 tab PO Q8H PRNRF: 0 acetaminophen [Tylenol] 325 mg capsule 325 mg PO ONCE PRNRF: 0 naproxen [naproxen] 500 MG tablet 500 mg PO BID PRN PRN (Reason: Pain) Qty: 30 RF: 1 Primary Care Provider: Maggy Dash Referrals: Maggy Dash MD [Primary Care Provider] - Shara Martinez MD [STAFF PHYSICIAN] - 1 Day for another exam Activity Restrictions/Additional Instructions: Call Dr. Kelvin Keith's office in the morning to be seen tomorrow morning. The pack will be removed at that time. Disposition Disposition: Home, Self Care
[2021-11-02 18:40] LABS: Hematocrit 38.2 % (37-47); Hemoglobin 12.9 g/dL (12.0-15.0); Mean Corp Hgb Conc 33.8 g/dL (32-36); Mean Corpuscular Hgb 29.7 pg (27.0-32.0); Mean Corpuscular Volume 87.8 fL (81-99); Mean Platelet Vol. 9.9 fl (6.2-12.0); Platelet Count 275 K/mm3 (150-450); RBC Distribution Width CV 11.6 % (11.6-14.6); RBC Distribution Width SD 37.3 fl (35.1-43.9); Red Blood Count 4.35 M/mm3 (4.2-5.4); White Blood Count 14.3 K/mm3 (4.4-11.0)
[2021-11-02] MEDS: FERRIC SUBSULFATE 8 GM SOLN TOPICAL (19:26)
[2021-11-02 19:29] VITALS: BP 130/91; BP 131/78; BP 137/88; PULSE 61; PULSE 67
== END 2021-11-02 20:04 | disposition home or self-care (01) ==
PROVIDERS: Emergency Provider Emergency Medicine; PCP Internal Medicine; Visit Provider Emergency Medicine
DX: N93.9 Abnormal uterine and vaginal bleeding, unspecified (principal); N99.820 Postprocedural hemorrhage of a genitourinary system organ or structure following a genitourinary system procedure; Z90.710 Acquired absence of both cervix and uterus
CPT/HCPCS: 85027; 99284

== ENCOUNTER 2021-11-03 12:12 | Day surgery (SDC) | payer OTHER, MEDICAID, SELFPAY ==
[2021-11-03] VITALS (13 sets, daily range): BP systolic 93–130; BP diastolic 64–101; PULSE 60–73; RESP 16–18; TEMP 36.3–37.2; O2SAT 95–100; BMI 26.4
--- NOTE | 2021-11-03 12:26 | PCM.HP.STD ---
HPI - General HPI Narrative KIARRA HAIDER, is a 26 F who presentspersistent vaginal bleeding postoperatively. she was seen in the ER twice for acute bleeding and had packing placed, which was removed this morning and no active bleeding seen however due to multiple incidents patient was consented for pelvic exam under anesthesia and oversewing the cuff. [facility] Medical History Anxiety Depression History of IBS Injury of head and neck Non-smoker Seizures Wears glasses Home Medications venlafaxine 75 mg capsule,extended release 24 hr 75 mg PO DAILY #30 cap 09/10/21 [Rx Last Taken Unknown] naproxen 500 mg PO BID PRN PRN #30 tab 10/20/21 [Rx Last Taken Unknown] acetaminophen 325 mg capsule 325 mg PO ONCE PRN 11/02/21 [History Last Taken Unknown] oxycodone-acetaminophen 2.5 mg-325 mg tablet 1 tab PO Q8H PRN 11/02/21 [History Last Taken Unknown] Allergy/AdvReac Type Severity Reaction Status Date / Time lorazepam [From Ativan] AdvReac Severe Other Verified 11/03/21 10:41 hydrocodone bitartrate AdvReac Intermediate Other Verified 11/03/21 10:41 [From Vicodin] lamotrigine [From Lamictal] AdvReac Rash Verified 11/03/21 10:41 Surgical History H/O oophorectomy H/O unilateral salpingectomy Hx laparoscopic cholecystectomy S/P endometrial ablation S/P laparoscopic assisted vaginal hysterectomy (LAVH) Social History Smoking Status: Never smoker alcohol intake: never substance use type: does not use what type of physical activity do you participate in: none do you feel safe at home: Yes 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 Review of Systems ROS Unobtainable: due to mental status and other Constitutional Constitutional: Reports systems reviewed and no addt'l complaints, except as documented; Denies as per HPI, change in weight, fatigue, fever(s), malaise, weakness or other Eyes Eyes: Reports systems reviewed and no addt'l complaints, except as documented; Denies as per HPI, change in vision or other ENT HEENT: Reports systems reviewed and no addt'l complaints, except as documented Respiratory/Chest Respiratory/Chest: Reports systems reviewed and no addt'l complaints, except as documented Gastrointestinal Gastrointestinal: Reports systems reviewed and no addt'l complaints, except as documented and as per HPI Genitourinary Genitourinary: Reports as per HPI Musculoskeletal Musculoskeletal: Reports systems reviewed and no addt'l complaints, except as documented Neurologic Neurologic: Reports systems reviewed and no addt'l complaints, except as documented Psychiatric Psychiatric: Reports systems reviewed and no addt'l complaints, except as documented Endocrine Endocrinology: Reports systems reviewed and no addt'l complaints, except as documented Hematologic/Lymphatic Hematologic/Lymphatic: Reports systems reviewed and no addt'l complaints, except as documented Physical Exam Const alert, oriented x3 and no apparent distress HEENT normocephalic Head and Scalp: atraumatic Eyes EOMs intact bilaterally and conjunctivae normal Neck full ROM, no lymphadenopathy, supple and thyroid normal General: trachea midline Lymph Lymphatic: no lymphadenopathy noted Resp normal respiratory effort, no retractions, no use of accessory muscles and clear to auscultation bilaterally Cardio regular rhythm GI normal to inspection, nondistended, normoactive bowel sounds, soft to palpation, non-distended and no masses Inspection: Negative for abdominal distention Back/Spine no CVA tenderness Extremity normal to inspection Skin no rashes or lesions noted Neuro moves all extremities and deep tendon reflexes 2+ bilaterally Psych mental status grossly normal Assessment & Plan Assessment/Plan (1) Vagina bleeding: PLAN: proceed with surgical evaluation. plan Pelvic exam under anesthesia, oversew vaginal cuff with sutures. After discussing the patient's diagnosis and treatment plan options, patient wishes to proceed with surgical management. I have discussed with the patient the risks, benefits, and alternatives of the procedure which include but are not limited to risks of anesthesia, bleeding, infection, possible damage to bowel, bladder, or surrounding vasculature which could lead to additional surgery to evaluate any complications. Patient agrees to procedure and wishes to proceed. ACOG/uptodate references given for additional information regarding procedure.
[2021-11-03] MEDS: Lactated Ringers 1,000 ML 125 ML IV (12:44)
[2021-11-03 12:52] LABS: Absolute Lymphocyte Count 1.94 X10^3/uL (0.83-4.51); Basophil# 0.06 X10^3/uL; Basophil% 0.6 % (0-1); Eosinophil# 0.44 X10^3/uL; Eosinophils% 4.4 % (0-5); Hematocrit 35.2 % (37-47); Hemoglobin 11.8 g/dL (12.0-15.0); Lymphocyte # 1.94 X10^3/ul (0.83-4.51); Lymphocyte % 19.5 % (19-41); Mean Corp Hgb Conc 33.5 g/dL (32-36); Mean Corpuscular Hgb 29.6 pg (27.0-32.0); Mean Corpuscular Volume 88.2 fL (81-99); Mean Platelet Vol. 10.2 fl (6.2-12.0); Monocyte# 0.46 X10^3/uL; Monocyte% 4.6 % (0-10); NRBC Flagged by Analyzer 0 % (0-5); Neutrophil # 7.03 X10^3/uL (2.7-7.7); Neutrophil % 70.6 % (47-70); Platelet Count 267 K/mm3 (150-450); RBC Distribution Width CV 11.7 % (11.6-14.6); RBC Distribution Width SD 37.8 fl (35.1-43.9); Red Blood Count 3.99 M/mm3 (4.2-5.4)
--- NOTE | 2021-11-03 15:18 | PCM.OPRPT ---
Problems Associated Problem List Diagnoses (1) Vagina bleeding: (2) Post-op bleeding: Report of Operation Date of Procedure: 11/03/21 Pre-Operative Diagnosis: Vaginal bleeding Post-Operative Diagnosis: Same Surgery/Procedure Performed:: Pelvic exam under anesthesia and oversew vaginal cuff Description of Surgical Findings:: Intact vaginal cuff post hysterectomy no acute bleeding Type of Anesthesia: General Special Medications: None Specimen's removed: None Drains: None Estimated Blood Loss (mL): Minimal Fluids Replaced: Crystalloid Description of Procedure: Patient was taken the operating room and placed under general anesthesia was prepped and draped in normal sterile fashion in the dorsolithotomy position. Vaginal cuff was examined and no gross abnormalities were seen. No gross defects and all stitches were noted to be intact. Due to the 2 ER visits and recurrent bleeding experienced by the patient that had failed outpatient conservative management the decision to oversew the vaginal cuff despite no active areas of bleeding was made. Interrupted [id number] sutures were placed and then a 3-0 Vicryl Rapide layer was ran across the top also. Excellent hemostasis was noted. Patient was awoken and taken to recovery in stable condition Complications none Admit VTE Documentation VTE Present on Admission: No Multi Select Codes Urinary/Genital Urinary/Genital CPT Codes: 94960 PEUA and Other Procedure See Report ([id number])
--- NOTE | 2021-11-03 16:30 | SUR.PHASEII ---
pt being discharged from [facility], dr concepcion happens to be in [facility], pt found to be unresponsive for several minutes and jaw very tense, VS completely stable, no changes, previous to episode pt was very talkative and conversing, mild pain, no nausea and voicing wanting to go home. Now is postdictal like, slow to respond, staring, PERRLA. Neurovasc check WNL, and responding now
== END 2021-11-03 18:34 | disposition home or self-care (01) ==
LOC: SDC 12:13 → AC 12:14
PROVIDERS: PCP Nurse Practitioner Family; Referring Provider Obstetrics & Gynecology; Visit Provider Obstetrics & Gynecology
PROC: (CPT 57410; principal; 2021-11-03 13:00)
DX: N93.9 Abnormal uterine and vaginal bleeding, unspecified (principal); N99.820 Postprocedural hemorrhage of a genitourinary system organ or structure following a genitourinary system procedure; F32.A Depression, unspecified; F41.9 Anxiety disorder, unspecified; Z90.710 Acquired absence of both cervix and uterus; Z79.899 Other long term (current) drug therapy
CPT/HCPCS: 57410; 58999; 00940; 85025; 86850; 86900; 86901; 87426; J7120; J2405

== ENCOUNTER → 2021-11-27 | Outpatient (CLI) | payer OTHER, MEDICAID, SELFPAY ==
--- NOTE | 2021-11-27 13:35 | US_ITS ---
PROCEDURE: ULTRASOUND OF THE FEMALE PELVIS - COMPLETE REASON FOR EXAM: Female, 26 years old. postoperative bleeding -- Call with wet read HX OF HYSTERECTOMY 6 WEEKS AGO STILL BLEEDING LT OOPHORECTOMY TECHNIQUE: Transvaginal TECHNICAL QUALITY: Adequate. COMPARISON: Pelvic ultrasound dated August 20, 2021 FINDINGS: Prior hysterectomy. The right ovary is visualized. The right ovary measures 8.1 x 7.9 x 5.6 cm. A large debris-filled hemorrhagic cyst of the right ovary is present measuring 7.3 x 7.3 x 5.2 cm. Normal vascular flow and Doppler signal is present in the right ovarian follicles surrounding the cyst. There is no visualized right adnexal mass or complex lesion. Prior left oophorectomy. There is no visualized left adnexal mass or complex lesion. There is minimal fluid in the cul-de-sac. US/Transvaginal Non- IMPRESSION: 1. A large debris-filled hemorrhagic cyst of the right ovary is present measuring 7.3 x 7.3 x 5.2 cm. Normal vascular flow and Doppler signal is present in the right ovarian follicles surrounding the cyst. Electronically Signed: Pedro Dunham MD at 15:17 EDT ,
== END | disposition home or self-care (01) ==
LOC: US 13:33
PROVIDERS: PCP Nurse Practitioner Family; Referring Provider Obstetrics & Gynecology; Visit Provider Obstetrics & Gynecology
DX: N93.8 Other specified abnormal uterine and vaginal bleeding (principal); N83.201 Unspecified ovarian cyst, right side
CPT/HCPCS: 76830

== ENCOUNTER → 2022-01-14 | Outpatient (CLI) | payer OTHER, MEDICAID, SELFPAY ==
--- NOTE | 2022-01-14 11:41 | US_ITS ---
STUDY: ULTRASOUND OF THE FEMALE PELVIS - COMPLETE REASON FOR EXAM: Female, 26 years old. RTO CYST - S/P HYSTERECTOMY AND LT OOPHORECTOMY LMP: The patient is status post hysterectomy. TECHNIQUE: Transabdominal and Transvaginal TECHNICAL QUALITY: Adequate. COMPARISON: Comparison is made with prior examination dated 11/27/2021. FINDINGS: The patient is status post hysterectomy. The patient is status post left nephrectomy. The right ovary is visualized. The right ovary measures 5.2 cm x 5 cm x 3.1 cm. There is a 3.2 cm x 2.7 cm x 2 cm simple cyst in the right ovary. There is no visualized right adnexal mass or complex lesion. There is normal arterial and normal venous vascularity. There is minimal fluid in the cul-de-sac. The pre void volume of the bladder was 67 ml. US/Transvaginal Non- IMPRESSION: Status post hysterectomy and left oophorectomy. 3.2 cm x 2.7 cm x 2 cm simple cyst in the right ovary. Electronically Signed: Austin Randolph MD at 13:46 EDT ,
== END | disposition home or self-care (01) ==
LOC: US 11:40
PROVIDERS: PCP Nurse Practitioner Family; Referring Provider Obstetrics & Gynecology; Visit Provider Obstetrics & Gynecology
DX: N83.201 Unspecified ovarian cyst, right side (principal); Z90.710 Acquired absence of both cervix and uterus; R10.2 Pelvic and perineal pain
CPT/HCPCS: 76830

== ENCOUNTER → 2022-01-30 | Day surgery (SDC) | payer OTHER, MEDICAID, SELFPAY ==
[2022-01-30] VITALS (8 sets, daily range): BP systolic 116–137; BP diastolic 74–85; PULSE 58–72; RESP 16–18; TEMP 36.1–36.9; O2SAT 95–100; BMI 26.6
--- NOTE | 2022-01-30 13:41 | EDS_ITS ---
HPI HPI - GI History of Present Illness Chief Complaint: Abd Pain Informant: patient Abdominal Pain/Flank Pain Onset: Yesterday Context: Gradual Onset Timing: Continuous Quality: Sharp Location: RLQ and Right Flank Current Severity: Severe Worsened by: - (Laying flat) Relieved by: Nothing Nausea/Vomiting/Emesis GI Symptom: Positive for Nausea and Vomiting Onset: Yesterday Quality: Positive for Nonbilious; Negative for Blood streaks, Coffee ground or Hematemesis Episodes: 4 Diarrhea/Melena/Hematochezia GI Symptom: Negative for Diarrhea, Melena or Hematochezia Associated Symptoms Associated Symptoms: Negative for Dysuria, Frequency or Hematuria LMP: Hysterectomy Narrative Narrative: Presents with right-sided abdominal pain and right flank pain that began yesterday. Patient states pain is gradually getting worse. Patient describes the pain as sharp. Patient states pain is constant. Patient states the pain is worse with laying flat. Patient states nothing seems to help with the pain. Patient admits to 4 episodes of nausea and vomiting. Patient denies any hematemesis or coffee-ground emesis. Patient denies any diarrhea, melena, or hematochezia. Patient denies any dysuria, hematuria, or frequency. [facility] Medical History Anxiety Bleeding disorder Depression History of IBS Injury of head and neck Low von Willebrand factor (vWF) Non-smoker Seizures Wears glasses Home Medications venlafaxine 75 mg capsule,extended release 24 hr (Effexor XR) 75 mg PO DAILY #30 caps 09/10/21 [Rx Last Taken Unknown] acetaminophen 325 mg capsule (Tylenol) 325 mg PO ONCE PRN Pain, Mild 11/02/21 [History Last Taken Unknown] L norgest/E estradiol-E estrad 0.15 mg-30 mcg (84)/10 mcg(7) tabs,3mos (Ashlyna) 1 tab .Route DAILY #91 tabs 01/29/22 [Rx Last Taken Unknown] Allergy/AdvReac Type Severity Reaction Status Date / Time lorazepam [From Ativan] AdvReac Severe Other Verified 01/30/22 13:20 hydrocodone bitartrate AdvReac Intermediate Other Verified 01/30/22 13:20 [From Vicodin] lamotrigine [From Lamictal] AdvReac Rash Verified 01/30/22 13:20 morphine AdvReac Upset Verified 01/30/22 13:20 Stomach Surgical History H/O oophorectomy H/O unilateral salpingectomy Hx laparoscopic cholecystectomy S/P endometrial ablation S/P laparoscopic assisted vaginal hysterectomy (LAVH) Social History Smoking Status: Never smoker alcohol intake: never substance use type: does not use what type of physical activity do you participate in: none do you feel safe at home: Yes 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 ROS ED Constitutional Constitutional ED: Denies chills or fever(s) Eyes Eyes: Denies blurry vision or change in vision ENT ENT ED: Denies rhinorrhea or sore throat Cardiovascular Cardiovascular: Denies chest pain or palpitations Respiratory/Chest Respiratory/Chest: Denies cough or dyspnea Gastrointestinal Gastrointestinal: Reports abdominal pain and nausea; Denies vomiting Genitourinary Genitourinary ED: Denies dysuria or hematuria Musculoskeletal Musculoskeletal: Reports back pain; Denies neck pain Integumentary Denies abscess or rash Neurologic Neurologic: Denies headache(s) or weakness Allergic/Immunologic Allergic/Immunologic ED: Denies mouth swelling or urticaria EXAM Physical Exam Const Vital Signs: 01/30/22 13:20 01/30/22 16:29 01/30/22 16:33 Temperature 97.7 F L 97 F L 97 F L Temperature Source Temporal Temporal Temporal Pulse Rate 58 L 65 65 Respiratory Rate 18 18 18 Blood Pressure 125/81 H 128/81 H 128/81 H Blood Pressure Mean 95 96 Blood Pressure Source Monitor Blood Pressure Position Semi-Fowlers Blood Pressure Location Right Arm Pulse Ox 100 98 98 Oxygen Delivery Method Room Air Room Air Room Air Positive well nourished and well developed General Appearance ED: well developed HEENT Reports moist mucous membranes Neck supple and no JVD Resp normal respiratory effort and clear to auscultation bilaterally Cardio regular rate, regular rhythm and no murmurs GI normal to inspection, nondistended, normoactive bowel sounds Palpation: soft and tender RLQ and RUQ; Negative for guarding or rebound tenderness present Back/Spine General Back: CVA tenderness right (Mild) Extremity normal to inspection General Extremety ED: Negative for edema or tenderness General Extremity: Negative for edema Neuro oriented x3, CN's II-XII intact bilaterally and no sensory deficits noted Sensorium / Orientation: alert Motor Exam: strength 5/5 throughout Psych mental status grossly normal Skin no rashes or lesions noted MDM MDM MDM Narrative Medical decision making narrative: Patient was given IV fluids, Dilaudid, and Zofran. CBC was within normal limits. Comprehensive metabolic profile was within normal limits. Urinalysis does not show any evidence of urinary tract infection. CT scan of the abdomen and pelvis was obtained. There is no hydronephrosis or urinary tract calcifications. There is enlargement of the right adnexa with a right adnexal cyst which is larger from previous CT scan. Pelvic ultrasound was recommended for further evaluation. This was interpreted by the radiologist and reviewed by myself. Pelvic ultrasound was obtained. I was notified by the tech that there does appear to be a torsion. Radiologist interpretation is pending. Case was discussed with Dr. Redd. She will be in to evaluate the patient and take the patient to the operating room. Patient understood and was agreeable with the plan. All questions were answered. Lab Data Attestation: I reviewed the patient's lab results. Labs: Laboratory Results - last 24 hr 01/30/22 01/30/22 01/30/22 13:58 13:58 14:42 WBC 9.3 RBC 4.19 L Hgb 12.4 Hct 37.4 MCV 89.3 MCH 29.6 MCHC 33.2 RDW Std Deviation 36.7 RDW Coeff of Sebastian 11.4 L Plt Count 237 MPV 10.2 Immature Gran % (Auto) 0.300 Neut % (Auto) 72.9 H Lymph % (Auto) 20.3 [place] % (Auto) 5.6 Eos % (Auto) 0.4 Baso % (Auto) 0.5 Absolute Neuts (auto) 6.8 Absolute Lymphs (auto) 1.89 Nucleated RBC % 0 Sodium 137 Potassium 4.3 Chloride 104 Carbon Dioxide 28.0 Anion Gap 5 BUN 9 Creatinine 0.70 Estim Creat Clear Calc 117.39 Est GFR (MDRD) Af Amer 129 Est GFR (MDRD) Non-Af 107 BUN/Creatinine Ratio 12.9 Glucose 94 Calcium 9.1 Total Bilirubin 0.60 AST 24 ALT 23 Alkaline Phosphatase 54 Total Protein 7.5 Albumin 4.3 Globulin 3.2 Albumin/Globulin Ratio 1.3 Urine Color Yellow Urine Clarity Clear Urine pH 6.5 Ur Specific [place] 1.010 Urine Protein Negative Urine Glucose (UA) Normal Urine Ketones Negative Urine Occult Blood Negative Urine Nitrite Negative Urine Bilirubin Negative Urine Urobilinogen Normal Ur Leukocyte Esterase Negative Radiography Diagnostic Testing: Clinical Impression(s) from Imaging Studies Abdomen/Pelvis CT 01/30/22 13:44 IMPRESSION: 1. No hydronephrosis or urinary tract calcifications. 2. Asymmetric enlargement of right adnexa with adnexal cyst, larger since prior CT. In the setting of right flank pain, evaluation with ultrasound suggested to document adnexal flow (and exclude ovarian torsion). Electronically Signed: Jw Oneill MD ([place]) at 14:36 EDT , Transvaginal US 01/30/22 14:59 IMPRESSION: 1. Absent flow of the right ovary with complex cyst, compatible with ovarian torsion, new since prior ultrasound. Small pelvic free fluid. Electronically Signed: Jw Oneill MD ([place]) at 16:04 EDT , Discharge Plan Dx/Rx/DC Orders Clinical Impression: Torsion of right ovary, Pelvic pain, Low von Willebrand factor (vWF) Disposition Disposition: Acute Care Hospital [facility]
--- NOTE | 2022-01-30 13:44 | CT_ITS ---
STUDY: CT ABDOMEN AND PELVIS WITHOUT CONTRAST REASON FOR EXAM: Female, 26 years old. Right flank pain RADIATION DOSAGE (If Supplied By Facility): CTDIvol = ( 6.66 ) mGy, DLP = ( 339.48 ) mGycm TECHNIQUE: Transaxial images were obtained from the dome of the diaphragm to the symphysis pubis without oral contrast, and without intravenous contrast. Sagittal and coronal images were reconstructed. Individualized dose optimization techniques were used for this CT. COMPARISON: 08/12/2021, pelvic ultrasound 01/15/2022 FINDINGS: The visualized lung bases are unremarkable. The visualized portions of the heart are within normal limits. Normal liver. Normal gallbladder and extrahepatic biliary system. Normal spleen. Normal pancreas. Normal bilateral adrenal glands. Normal right kidney. Normal left kidney. Normal visualized stomach. Normal small intestine. Normal colon. The appendix is visualized and appears normal. Normal abdominal aorta. Normal inferior vena cava. Normal retroperitoneum. Normal urinary bladder. Mild pelvic free fluid. Asymmetric enlargement of the right adnexa with cyst measuring up to 3.4 cm. The right adnexa has increased in size currently measuring 5.1 x 5.2 cm, as compared to recent ultrasound Normal abdominal wall. Normal osseous structures. CT/Abdomen/Pelvis without Cont IMPRESSION: 1. No hydronephrosis or urinary tract calcifications. 2. Asymmetric enlargement of right adnexa with adnexal cyst, larger since prior CT. In the setting of right flank pain, evaluation with ultrasound suggested to document adnexal flow (and exclude ovarian torsion). Electronically Signed: Jw Oneill MD (Brooks) at 14:36 EDT ,
[2022-01-30] MEDS: Ondansetron 4 MG/2 ML Vial IV (13:58)
[2022-01-30] MEDS: HYDROmorphone 1 MG/ML Syringe 0.5 MG IV (13:58)
[2022-01-30] MEDS: 0.9% Normal Saline 1,000 ML 1000 ML IV (13:58)
[2022-01-30 14:12] LABS: Absolute Lymphocyte Count 1.89 X10^3/uL (0.83-4.51); Absolute Neutrophil Count 6.8 X10^3/uL (2.0-7.7); Basophil# 0.05 X10^3/uL; Basophil% 0.5 % (0-1); Eosinophil# 0.04 X10^3/uL; Eosinophils% 0.4 % (0-5); Hematocrit 37.4 % (37-47); Hemoglobin 12.4 g/dL (12.0-15.0); Lymphocyte # 1.89 X10^3/ul (0.83-4.51); Lymphocyte % 20.3 % (19-41); Mean Corp Hgb Conc 33.2 g/dL (32-36); Mean Corpuscular Hgb 29.6 pg (27.0-32.0); Mean Corpuscular Volume 89.3 fL (81-99); Mean Platelet Vol. 10.2 fl (6.2-12.0); Monocyte# 0.52 X10^3/uL; Monocyte% 5.6 % (0-10); NRBC Flagged by Analyzer 0 % (0-5); Neutrophil % 72.9 % (47-70); Platelet Count 237 K/mm3 (150-450); RBC Distribution Width CV 11.4 % (11.6-14.6); RBC Distribution Width SD 36.7 fl (35.1-43.9); Red Blood Count 4.19 M/mm3 (4.2-5.4); White Blood Count 9.3 K/mm3 (4.4-11.0)
[2022-01-30 14:24] LABS: ALB/GLOB Ratio 1.3 RATIO (0.9-2.4); AST(SGOT) 24 U/L (15-37); Alanine Aminotransfer ALT/SGPT 23 U/L (13-56); Albumin, Serum 4.3 g/dL (3.2-5.0); Alkaline Phosphatase 54 U/L (45-117); Anion Gap 5 (5-15); BUN 9 mg/dL (7-18); BUN/Creat Ratio 12.9 RATIO (10-20); Calcium,Total 9.1 mg/dL (8.5-10.1); Chloride 104 mmol/L (98-107); EST Glomerular Filtration Rate 107 mL/min (>60); Est Glom Filt Rate - Afr Amer 129 mL/min (>60); Estimated Creatinine Clearance 117.39 ml/min; Globulin 3.2 g/dL (2.2-4.2); Glucose 94 mg/dL (74-106); Potassium 4.3 mmol/L (3.5-5.1); Protein, Total 7.5 g/dL (6.4-8.2); Sodium Level 137 mmol/L (136-145)
[2022-01-30 14:50] LABS: Mucous, Urine 0 SEEN /hpf (<or=2+); Red Blood Cells-Urine 0 SEEN /hpf (0-5)
[2022-01-30 14:53] LABS: Color, Urine Yellow (Yellow); Glucose, Dipstick Normal (Normal); Ketone-Dipstick Negative (Negative); Leukocyte Esterase-Dipstick Negative /ul (Negative); Nitrite-Dipstick Negative (Negative); Occult Blood-Urine Negative /ul (Negative); Protein-Dipstick Negative (Negative); Urine Bilirubin Dipstick Negative (Negative); Urine Clarity Clear (Clear); Urine Urobilinogen Normal (Normal); Urine pH 6.5 (5.0 - 8.0)
--- NOTE | 2022-01-30 14:59 | US_ITS ---
STUDY: ULTRASOUND OF THE FEMALE PELVIS - COMPLETE REASON FOR EXAM: Female, 26 years old. Right flank pain LMP: Unknown TECHNIQUE: Transvaginal TECHNICAL QUALITY: Adequate. COMPARISON: CT from earlier today. FINDINGS: The uterus is absent. The right ovary is visualized. The right ovary measures 6.1 x 6.2 x 4.8 cm. 2.3 x 2.7 x 2.1 cm mildly complex cyst arising from the right adnexa. There is no visualized right adnexal mass or complex lesion. There is absent arterial and absent venous vascularity. The left ovary is non-visualized (surgically absent). There is no fluid in the cul-de-sac. Mild pelvic free fluid. US/Transvaginal Non- IMPRESSION: 1. Absent flow of the right ovary with complex cyst, compatible with ovarian torsion, new since prior ultrasound. Small pelvic free fluid. Electronically Signed: Jw Oneill MD ([place]) at 16:04 EDT ,
--- NOTE | 2022-01-30 15:58 | NURSING ---
OR RIGHT OVARIAN TORSION RENATA
--- NOTE | 2022-01-30 16:23 | HP.PCM.OB_ITS ---
HPI - General General Date of Admission: 01/30/22 Chief Complaint: right lower quadrant pain HPI Narrative KIARRA HAIDER, is a 26 F who presents to ER for severe pain that started yesterday. She has a h/o hysterectomy and LSO and found out that she has von willebrand's disease. She had a cyst on her right ovary that was 8 cm and decreased in size to 6 cm and now is 2 cm, however shows no blood flow consistent with an ovarian torsion. She has a possible seizure disorder (had 2 seizures, one was during an episode of acute blood loss and the second was after her hysterectomy in October) [facility] Medical History Anxiety Bleeding disorder Depression History of IBS Injury of head and neck Low von Willebrand factor (vWF) Non-smoker Seizures Wears glasses Home Medications venlafaxine 75 mg capsule,extended release 24 hr (Effexor XR) 75 mg PO DAILY #30 caps 09/10/21 [Rx Last Taken Unknown] acetaminophen 325 mg capsule (Tylenol) 325 mg PO ONCE PRN Pain, Mild 11/02/21 [History Last Taken Unknown] L norgest/E estradiol-E estrad 0.15 mg-30 mcg (84)/10 mcg(7) tabs,3mos (Ashlyna) 1 tab .Route DAILY #91 tabs 01/29/22 [Rx Last Taken Unknown] Allergy/AdvReac Type Severity Reaction Status Date / Time lorazepam [From Ativan] AdvReac Severe Other Verified 01/30/22 13:20 hydrocodone bitartrate AdvReac Intermediate Other Verified 01/30/22 13:20 [From Vicodin] lamotrigine [From Lamictal] AdvReac Rash Verified 01/30/22 13:20 morphine AdvReac Upset Verified 01/30/22 13:20 Stomach Surgical History H/O oophorectomy H/O unilateral salpingectomy Hx laparoscopic cholecystectomy S/P endometrial ablation S/P laparoscopic assisted vaginal hysterectomy (LAVH) Social History Smoking Status: Never smoker alcohol intake: never substance use type: does not use what type of physical activity do you participate in: none do you feel safe at home: Yes additional social history: 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 Date Name GA/Weeks Outcome Route Bth Weight Gen Labor Lgth Anesthesia Del Locatn Provider FOB Unknown 2012 Maximus live - full term JV Unknown 2014 Georges live - full term Anderson Unknown 2016 Jorje live - full term [facility] Community Unknown 2019 Fernandez live - full term Cho ROS Constitutional Constitutional: Denies change in weight, chills, fatigue, fever(s), headache(s), poor appetite or weakness Cardiovascular Cardiovascular: Denies chest pain, dizziness, dyspnea, irregular heart rhythm, leg edema, palpitations, rapid heart rate or vomiting Respiratory/Chest Respiratory/Chest: Denies chest tightness, cough, dyspnea or breast pain Gastrointestinal Gastrointestinal: Denies abdominal pain, anorexia, constipation, cramping, diarrhea, hemorrhoids or weight changes Genitourinary Genitourinary: Denies dysuria, flank pain, genital lesions, genital pain, urinary frequency or urinary urgency Musculoskeletal Musculoskeletal: Denies difficulty walking, muscle cramps or numbness Integumentary Integumentary: Denies lesions Neurologic Neurologic: Denies seizure-like activity Psychiatric Psychiatric: Denies anxiety, behavioral changes, change in appetite, change in libido, cognitive impairment, confusion, depression, difficulty concentrating, hallucinations or suicidal thoughts Hematologic/Lymphatic Hematologic/Lymphatic: Denies lymphadenopathy Allergic/Immunologic Allergic/Immunologic: Denies itchy eyes, lip swelling, seasonal rhinorrhea, rhinitis, throat swelling, tongue swelling, eczemia, wheezing or asthma Vital Signs Vital Signs Vital Signs: 01/30/22 13:20 Temperature 97.7 F L Temperature Source Temporal Pulse Rate 58 L Respiratory Rate 18 Blood Pressure 125/81 H Blood Pressure Mean 95 Pulse Ox 100 Oxygen Delivery Method Room Air Weight Weight: 170 lb Body Mass Index (BMI) 26.6 Physical Exam Const alert and oriented x3 General Appearance: cooperative Lymph Lymphatic: no lymphadenopathy noted Chest inspection of chest normal and palpation of chest normal Chest: symmetrical chest wall rise Resp normal respiratory effort and normal air movement Effort and Inspection: able to speak in complete sentences Cardio regular rate and regular rhythm GI GI Narrative: tender with rebound on right, no distention no CVA tenderness Extremity normal to inspection Skin no rashes or lesions noted Labs Labs Labs: Blood Type O POSITIVE Antibody Screen NEGATIVE Hct 37.4 % (37-47) Hgb 12.4 g/dL (12.0-15.0) Miscellaneous Test Assessment & Plan (1) Torsion of right ovary: (2) Low von Willebrand factor (vWF): (3) Ovarian cyst: COMMENT: recurrent. ordered ashlyna for ovarian suppression PLAN: Plan plan for diagnostic laparoscopy, right cystectomy, possible oophorectomy now ddavp stat for von willebrand's, will use TXA intraop and after surgery.
--- NOTE | 2022-01-30 16:30 | OV_PTH ---
PATIENT: KIARRA HAIDRE LOC: [facility] – [place] U#:[id number] AGE/SX: 26/ ROOM: RE01/30/[address]: Dr. Kelle Doty DO : 1995 BED: DIS: 01/30/2022 SPEC #: [id number] RECD: 02/01/22 08:40 STATUS: COCO TERRENCE #: [id number] MIRACLE: 01/30/22 16:[address]: Kelle Doty DEPT: SURGICAL PATHOLOGY RECD BY: Emily Ronquillo ENTERED: 02/01/22 10:00 SP TYPE: OVARY OTHR DR: Paige Hollingsworth, LIZZY Tissues: OVARIAN CYST Procedures: Surgery Specimen Level IV HEADER OPERATION: Laparoscopic oophorectomy PRE-OP DIAGNOSIS: Torsion of right ovary, low von Willebrand factor, ovarian cyst TISSUE SUBMITTED: Right ovary MICROSCOPIC DIAGNOSIS Right ovary, oophorectomy: Consistent with hemorrhagic infarction. AM:emmanuel 02/02/2022 MICROSCOPIC DESCRIPTION Slides are reviewed. GROSS DESCRIPTION Received in fixative is one container labeled with the patient's name and designated right ovary. The specimen consists of a congested and hemorrhagic ovary in multiple pieces weighing 40 gm and measuring in aggregate 7 x 5 x 4 cm. Sections of the ovary reveal congested and hemorrhagic cut surfaces. No mass lesion is identified. Developer Designer sections are submitted in four cassettes. / SJ:emmanuel 02/01/2022 TC:5 CPT: 31788
--- NOTE | 2022-01-30 16:47 | ED.RN ---
ATTEMPTED TO CALL OR TO INFORM OF AWAITING MED PRIOR TO GOING TO SURGERY PER DR. YANEZ.
--- NOTE | 2022-01-30 16:48 | DCINST_ITS ---
Discharge Instructions Diet Discharge Diet: No restrictions Activity Discharge Activity: Return to Normal Activity, May Not Drive (for two weeks or while taking narcotic pain medications.), May Shower and May Take a Tub Bath (in 7 days) May resume sexual activity in: 1 week Weight Bearing Status: Full weight bearing Dressing / Incision Call your doctor if you observe: Using more than 1 pad per hour, Shortness of breath, Chest pain and Uncontrolled pain Suture Line Care: Avoid Pulling/Pushing and Avoid Pinching/Bending Remove Dressing in: 1 week (if present) Cleanse incision/area with: Soap & Water and Keep Dressing Clean & Dry Follow Up Care Please Follow Up With: Kelle Doty DO When: Call to make an appointment with your doctor for a follow up incision check in 1-2 weeks. Test Results: Test results from this visit will be discussed in further detail at your follow- up appointment, if applicable. Discharge Plan Admission Primary Reason for Your Visit: LAPAROSCOPY Attending Provider: Kelle Doty Primary Care Provider: Paige Hollingsworth NP Discharge Orders/Prescriptions Prescriptions: New oxycodone-acetaminophen [Percocet] 5-325 mg tablet 1 tab PO Q4H PRN (Reason: pain) 7 Days Qty: 20 0RF tranexamic acid 650 mg tablet 1,300 mg PO TID 3 Days Qty: 18 0RF Continued venlafaxine [Effexor XR] 75 mg capsule,extended release 24hr 75 mg PO DAILY Qty: 30 12RF acetaminophen [Tylenol] 325 mg capsule 325 mg PO ONCE PRN (Reason: Pain, Mild) Discontinued L norgest/e.estradiol-e.estrad [Ashlyna] 0.15 mg-30 mcg (84)/10 mcg (7) tablets,dose pack,3 month 1 tab .Route DAILY Qty: 91 4RF Rx Instructions: 1 TAB daily; Referrals / Follow Up: Paige Hollingsworth NP, CLINICAL PRODUCT SPECIALIST-C [Primary Care Provider] - Disposition Disposition (needs filled in before D/C Order can be placed): Home, Self Care
[2022-01-30] MEDS: Bupivacaine 0.25% 30 ML Vial (17:45)
--- NOTE | 2022-01-30 18:12 | PCM.OP.BLANK ---
Problems Associated Problem List Diagnoses (1) Torsion of right ovary: (2) Low von Willebrand factor (vWF): (3) Ovarian cyst: (4) Pelvic pain: Operative Report Date of Procedure: 01/30/22 preoperative diagnosis: abdominal pain, suspect ovarian torsion, ovarian hemorrhagic complex cyst post operative diagnosis: ovarian torsion surgery: laparoscopic right oophorectomy surgeon: Dr. Kelle Doty DO surveyor instrument assistant: LEE Nolasco complications: none anesthesia: general EBL: 30cc Urine output: 300cc Details: The patient was brought to the operating room, placed in a dorsal lithotomy position, and general anesthesia was found to be adequate. She was prepped and draped in the usual sterile fashion a sponge stick was placed in the vagina after the bladder was drained with a red rubber Fernández catheter of 300 cc. Attention was turned towards the abdomen an infraumbilical skin incision was made with a scalpel after quarter percent Marcaine injection. A 5 mm trocar was inserted into the abdomen under direct visualization using the laparoscope. The abdomen was insufflated with CO2 gas and the patient was placed in Trendelenburg position. A left lower quadrant 5 mm trocar was inserted into the abdomen under direct visualization. The right ovary was noted to be black and necrotic and towards to 5 times. The ovary was untwisted and no color returned. There was noted to be multiple cysts on the ovary that were hemorrhagic. The decision was made to perform the oophorectomy this was performed using the Enseal device by cauterizing and cutting the infundibulopelvic ligament. Survey of the abdomen showed no signs of bleeding all operative sites were noted to be hemostatic. The left fallopian tube is still present however the left ovary is absent surgically and the uterus is surgically absent. The liver and bowel appeared normal. The 5 mm umbilical port site was converted to a 10 mm port site and a 10 mm Endo Catch bag was placed into the abdomen. The ovary was placed in the bag and brought to the level of the skin. The bag was opened and the cyst was drained of dark maroon blood the ovary then slipped through the fascial site. The fascia was then repaired using an 0 Vicryl suture. Skin was closed with a 4-0 Monocryl. In the left lower quadrant port site was also removed. Sponge stick in the vagina was removed. The patient tolerated the procedure well sponge lap and needle counts were correct x2 Multi Select Codes Urinary/Genital Urinary/Genital CPT Codes: 60507 Laproscopic BS/O (right side only )
[2022-01-30 22:46] LABS: Squamous Epithelial Cells - UA 5-10 SEEN /hpf (5-10); White Blood Cells 0-5 SEEN /hpf (0-5)
[2022-01-30 22:47] LABS: Bacteria 1+ /hpf (None Seen)
== END | disposition home or self-care (01) ==
LOC: ED 15:47 → SDC 16:06
PROVIDERS: Emergency Provider Emergency Medicine; PCP Nurse Practitioner Family; Visit Provider Obstetrics & Gynecology
PROC: (CPT 58661; principal; 2022-01-30 16:30)
DX: N83.511 Torsion of right ovary and ovarian pedicle (principal); D68.0 Von Willebrand disease; F32.A Depression, unspecified; F41.9 Anxiety disorder, unspecified; Z90.710 Acquired absence of both cervix and uterus; Z90.49 Acquired absence of other specified parts of digestive tract; Z79.899 Other long term (current) drug therapy
CPT/HCPCS: 58661; 74176; 76830; 80053; 81001; 85025; 88305; 93976; 99285; J7030; J7120; A4216; C1760; J2405; J2597; J3490

== ENCOUNTER → 2022-11-15 | Outpatient (CLI) | payer OTHER, MEDICAID, SELFPAY ==
--- NOTE | 2022-11-15 19:09 | CT_ITS ---
INDICATION: right quadrant pain EXAMINATION: CT ABDOMEN AND PELVIS WITH CONTRAST - CT Abdomen And Pelvis W/ Contrast Injection TECHNIQUE: Helically acquired images were obtained of the abdomen and pelvis following IV contrast. A radiation dose optimization technique was used for this scan. IV Contrast dosage and agent: 100 mL Isovue-370 Oral contrast: Administered. COMPARISON: January 30, 2022 and August 12, 2021. FINDINGS: LOWER CHEST: Lung bases are clear. No cardiomegaly or pericardial effusion. LIVER: Homogeneous hepatomegaly. No focal mass. GALLBLADDER AND BILIARY TREE: Cholecystectomy. No intra- or extrahepatic biliary ductal dilation. PANCREAS: No focal cystic or solid mass. SPLEEN: Normal size without focal cystic or solid mass. ADRENAL GLANDS: No nodules. KIDNEYS AND URETERS: Subcentimeter bilateral renal hypodensities are too small to characterize, commonly cysts, no specific imaging follow-up required. Normal renal size and position. No hydronephrosis. PERITONEUM: No ascites or free air. No other fluid collection. BOWEL: No acute gastric finding. No small bowel distention or focal wall thickening. Normal appendix. Moderate colonic stool. No focal colonic wall thickening or surrounding inflammation. . LYMPH NODES: No enlarged mesenteric or retroperitoneal lymph nodes. VESSELS: Aorta is non-dilated. URINARY BLADDER: Decompressed, limiting evaluation.. REPRODUCTIVE ORGANS: Absent uterus. No evidence of adnexal mass.. ABDOMINAL WALL: No discrete abdominal or pelvic wall hernia. BONES: No lytic or blastic abnormality. CT/Abdomen/Pelvis WITH Contrast IMPRESSION: Bladder is decompressed, limiting evaluation with trace nonspecific adjacent stranding. Correlate with urine to exclude cystitis. Normal appendix. No bowel obstruction or focal inflammatory change. Moderate colonic stool burden. Hepatomegaly. Electronically Signed: Colby Mcdonald MD at 2:41 EDT ,
== END | disposition home or self-care (01) ==
PROVIDERS: PCP Nurse Practitioner Family; Referring Provider Obstetrics & Gynecology; Visit Provider Obstetrics & Gynecology
DX: R10.2 Pelvic and perineal pain (principal)
CPT/HCPCS: 74177; Q9967

== ENCOUNTER → 2024-04-25 | Outpatient (CLI) | payer OTHER, SELFPAY ==
--- NOTE | 2024-04-25 | BRBX_PTH ---
PATHOLOGY RESULTS PATIENT: KIARRA HAIDER LOC: [facility] U#:[id number] AGE/SX: 28/F ROOM: RE04/25/[address]: LIZZY Keen : 1995 BED: DIS: 04/25/2024 SPEC #: [id number] RECD: 04/25/24 16:01 STATUS: COCO REAlonso #: [id number] MIRACLE: 04/25/24 00:[address]: Imelda Blair NP DEPT: SURGICAL PATHOLOGY RECD BY: Cherry Espitia ENTERED: 04/26/24 06:30 SP TYPE: BREAST BX SOFIA DR: MD Paige Garcia NP-C Tissues: Right breast, NOS Procedures: Surgery Specimen Level IV HEADER OPERATION: Right breast biopsy PRE-OP DIAGNOSIS: Right breast mass TISSUE SUBMITTED: Right breast tissue Ischemic Time: 1 minute Fixation Time: 28 hours MICROSCOPIC DIAGNOSIS Right breast mass, biopsy: Hyalinized stroma. Benign fibrovascular tissue. Focal mild duct ectasia. No evidence of malignancy. See comment. 04/27/2024 COMMENT The specimen primarily consists of clotted blood. Clinical correlation is suggested. MICROSCOPIC DESCRIPTION Slides are reviewed. GROSS DESCRIPTION Received in fixative is one container labeled with the patient's name and designated Right breast tissue. The specimen consists of multiple fragments of patino soft tissue mixed with blood clot that in aggregate measure 3.0 x 2.5 x 0.2 cm. The specimen is totally submitted in one cassette. 04/26/2024 TC:5 CPT:85093
--- NOTE | 2024-04-25 09:31 | BI_ITS ---
MAMMOGRAPHY - BILATERAL DIAGNOSTIC REASON FOR EXAM: Female, 28 years old. Six-week history of right lateral breast pain. Discharge. PERTINENT HISTORY: Non-contributory. TECHNIQUE: Digital bilateral breast tito (3D mammographic acquisition) in the CC and MLO projections. 2-D mediolateral oblique (MLO) and craniocaudad (CC) views of both breasts were obtained. CAD: Full Field Digital Mammography with Computer Added Detection was performed. COMPARISON: None. Baseline examination. FINDINGS: Breast Composition: The breasts are heterogeneously dense, which may obscure small masses. There are no dominant masses or suspicious calcifications. There is asymmetry of breast tissue or more breast tissue is seen in the upper outer quadrant of the right breast as compared to the left side. Sonographic correlation is recommended for further evaluation. No other significant abnormalities are identified. BI/DIAG MAMM W/CAD, BILAT IMPRESSION: Asymmetry of breast tissue with more breast tissue is seen in the upper-outer quadrant of the right breast as compared to the left side. Correlation with ultrasound is recommended for further evaluation. ASSESSMENT CATEGORY: BIRADS Category 0: Incomplete. Need additional imaging evaluation. A letter regarding these results will be sent to the patient by the facility within 30 days. Approximately 10% of breast cancers are not detected by mammography. A normal mammogram should not delay biopsy of a clinically suspicious abnormality. Electronically Signed: Austin Randolph MD at 10:52 EDT ,
--- NOTE | 2024-04-25 09:31 | US_ITS ---
STUDY: ULTRASOUND BREAST - RIGHT REASON FOR EXAM: Female, 28 years old. Asymmetrical breast tissue. TECHNIQUE: Axial and longitudinal images of the RIGHT breast were performed with a high resolution ultrasound transducer. # OF IMAGES: [id number] COMPARISON: Comparison is made with prior mammogram done earlier today. FINDINGS: RIGHT Breast: There is evidence of a dilated ducts. At the 10:00 position of the breast and 3 sons from nipple, there is a 6 mm x 8 mm x 5 mm solid nodule within a duct. This may represent a papilloma. US/Breast Limited Unilateral IMPRESSION: Dilated ducts. 6 mm x 8 mm x 5 mm solid nodule within a retroareolar duct. This may represent a papilloma. Biopsy recommended. ASSESSMENT CATEGORY: BIRADS Category 4: Suspicious - Biopsy Should Be Considered. A letter regarding these results will be sent to the patient by the facility within 30 days. Electronically Signed: Austin Randolph MD at 10:54 EDT ,
--- OUTSIDE RECORDS SUMMARY | 2024-04-25 10:13 | XMS RPT_ITS | CCD ---
Author Organization [facility] Care Team Providers Care Brushing Operator Name Role Phone Susan Callahan Unavailable Unavailable Susan Callahan Unavailable Unavailable No Doctor Assigned, Nodr Unavailable Unavail able Tizzano, Sagar P Unavailable Unavailable No Doctor Assigned, Nodr Unavailable Unavail able Tizzano, Sagar P Unavailable Unavailable Tizzano, Sagar P Unavailable Unavailable No Doctor Assigned, Nodr Unavailable Unavail able Tizzano, Sagar P Unavailable Unavailable No Doctor Assigned, Nodr Unavailable Unavail able Tizzano, Sagar P Unavailable Unavailable No Doctor Assigned, Nodr Unavailable Unavail able Tizzano, Sagar P Unavailable Unavailable Tizzano, Sagar P Unavailable Unavailable Tizzano, Sagar P Unavailable Unavailable No Doctor Assigned, Nodr Unavailable Unavail able Tizzano, Sagar P Unavailable Unavailable No Doctor Assigned, Nodr Unavailable Unavail able Tizzano, Sagar P Unavailable Unavailable No Doctor Assigned, Nodr Unavailable Unavail able Tizzano, Sagar P Unavailable Unavailable Tizzano, Sagar P Unavailable Unavailable No Doctor Assigned, Nodr Unavailable Unavail able Dustin, Yanci Unavailable Unavailable No Doctor Assigned, Nodr Unavailable Unavail able Dustin, Yanci Unavailable Unavailable Dustin, Yanci Unavailable Unavailable No Doctor Assigned, Nodr Unavailable Unavail able Dustin, Yanci Unavailable Unavailable Dustin, Yanci Unavailable Unavailable No Doctor Assigned, Nodr Unavailable Unavail able Jadon Sanchez Unavailable UnavailJadon Bennett Unavailable UnavailVLAD Bonds Attending Bello carty REFERRED, SELF Referring Unavailable ALFONSO, NALLELY O Primary Care Unavailable VLAD LUONG Attending Bello carty REFERRED, SELF Referring Unavailable ALFONSO, NALLELY O Primary Care Unavailable VLAD LUONG Attending VLAD Sage Referring Unavai lable ALFONSO, NALLELY O Primary Care Unavailable VLAD LUONG Attending Unavai VLAD Hastings Referring Unavai carloz CRUZ, NALLELY O Primary Care Unavailable KELLE CHAO Attending Unavailable PRIOR, RICKIE Referring Unavailable ALFONSO, NALLELY O Primary Care Unavailable KELLE CHAO Attending Unavailable PRIOR, RICKIE Referring Unavailable ALFONSO, NALLELY O Primary Care Unavailable NONE, NONE Primary Care Unavailable TYRONE, OSMIN J Admitting Unavailable TYRONE, OSMIN J Attending Unavailable TYRONE, OSMIN J Consulting Unavailable Jose G Hyde [phone] Consulting U navailable NONE, NONE Consulting Unavailable JIMMIE, SUSAN Admitting Unavailable SAMUEL, SUSAN Attending Unavailable NONE, NONE Primary Care Unavailable MAMADOU CYR II Consulting Unavailab ANNMARIE Velazquez Consulting Unavailable SUSAN SAMUEL Consulting Unavailable FLEX BRADEN Consulting Unavailable SUKHDEV DURÁN Consulting Unavailable NONE, NONE Consulting Unavailable SUSAN SAMUEL Admitting Unavailable SAMUELSUSAN MOYA Attending Unavailable SUSAN SAMUEL Consulting Unavailable NONE, NONE Primary Care Unavailable NONE, NONE Consulting Unavailable SUSAN SAMUEL Admitting Unavailable SAMUEL, SUSAN Attending Unavailable NONE, NONE Primary Care Unavailable SUSAN SAMUEL Consulting Unavailable JohanneMana cota [phone] Consulting Unava ilable NONE, NONE Consulting Unavailable SUSAN SAMUEL Admitting Unavailable SAMUELSUSAN MOYA Attending Unavailable SAMUELSUSAN MOYA Consulting Unavailable NONE, NONE Consulting Unavailable SUSAN SAMUEL Admitting Unavailable SAMUELSUSAN MOYA Attending Unavailable SAMUELSUSAN MOYA Consulting Unavailable NONE, NONE Primary Care Unavailable NONE, NONE Consulting Unavailable SUSAN SAMUEL Admitting Unavailable SAMUELSUSAN MOYA Attending Unavailable NONE, NONE Primary Care Unavailable SUSAN SAMUEL Consulting Unavailable Jose G Hyde [phone] Consulting U navailable NONE, NONE Consulting Unavailable SUSAN SAMUEL Admitting Unavailable SAMUEL, SUSAN Attending Unavailable NONE, NONE Primary Care Unavailable Kendra Farley [phone] Consulting Unava ilable VIRGIL COTO Consulting Unavailable ENRICO MCCLOUD Consulting Unavailable SUSAN SAMUEL Consulting Unavailable ENRICO QUEZADA Consulting Unavailable MARGARET BARRAZA Consulting Unavailable FLEX BRADEN Consulting Unavailable SUKHDEV DURÁN Consulting Unavailable NONE, NONE Consulting Unavailable Required, No Pcp Unavailable Unavailable Shereen Toshia Lucero Unavailable Darrick QURESHI Laila Harris Primary Care Provider SELF, SELF Referring Unavailable DARRICK, LAILA K Primary Care Unavailable JOSELIN SOTELO Attending Unavailable JOSELIN SOTELO Attending Unavailable DARRICK, LAILA K Primary Care Unavailable BAL CABELLO Referring Unavailable DARRICK, LAILA K Primary Care Unavailable DARRICK, LAILA K Referring Unavailable JOSELIN SOTELO Attending Unavailable SUKUMAR RODRIGUES Primary Care Unavailable AKHIL LEAL Attending Unavailable CONSULT, HEALTH SERVICE WORKER - BENIGN Consulting Unavailabl e DARRICK, LAILA Admitting Unavailable DARRICK, LAILA Attending Unavailable DARRICK, LAILA Primary Care Unavailable VICTORIANO DONOVAN Attending Unavailable DARRICK, LAILA DINORA Primary Care Unavailable ALLYN RANGEL Admitting Unavailable ALMITA FLOYD Attending Unavailabl e CARL DEAN Consulting Unavailable DARRICK, LAILA DINORA Primary Care Unavailable ALLYN RANGEL Admitting Unavailable CARL DEAN Attending Unavailable CARL DEAN Referring Unavailable DARRICK, LAILA DINORA Primary Care Unavailable RICKIE CORDOVA Admitting Unavailabl RICKIE De Souza Referring Unavailabl e DARRICK, LAILA DINORA Primary Care Unavailable KENA DE LA CRUZ Primary Care UnavailYUSUF Brian Attending Unavailable DARRICK, LAILA DINORA Primary Care Unavailable ARTURO FRANK Attending Unavailable Allergies Allergy Classification Reported Allergen(s) Allergy Type Date of Onset Reaction(s) Facility Anti-Epileptic Agents (1 source) lamoTRIgine Drug Allergy Unknown [facility] (2 sources) lamoTRIgine; Translations: [Lamictal] Drug Allergy [facility] Repository (2 sources) LORazepam; Translations: [facility]Ativan] [facility] lamoTRIgine; Translations: [LAMOTRIGINE] Drug Allergy 1 [facility] Repository (3 sources) LORazepam; Translations: [LORAZEPAM] Drug Allergy 8 [facility] Repository (1 source) Iothalamate Drug Allergy [facility] Repository (1 source) HYDROcodone; Translations: [HYDROCODONE] Drug Allergy 2 [facility] Repository (1 source) Ibuprofen; Translations: [IBUPROFEN] Drug Allergy 4 [facility] Repository (1 source) IOTHALAMIC ACID; Translations: [IOTHALAMIC ACID] Propensity to adverse reactions to drug (disorder) 4 [facility] Repository Medications Current Medications Medication Drug Class(es) Dates Sig (Normalized) Sig (Original) acetaminophen 325 mg / oxyCODONE hydrochloride 5 mg oral tablet (1 source) Opioid Agonist take 1 tablet by mouth every six hours as needed oxyCODONE-acetami nophen 5-325 MG per tablet Take 1 tablet by mouth every 6 hours as needed. 0 Active promethazine hydrochloride 25 mg oral tablet (1 source) Phenothiazine take 1 tablet by mouth every six hours as needed promethazine 25 MG tablet Take 25 mg by mouth every 6 hours as needed for Nausea / Vomiting. 0 Active traMADol hydrochloride 50 mg oral tablet (1 source) Opioid Agonist Start: 11-26-2020 take 2 tablets by mouth every six hours Ultram 50 mg oral tablet ; 2 tab(s) orally every 6 hours -for breakthrough pain Quantity: 20 Refills: 0 Ordered: 26-Nov-2020 Toshia Regan Start: 26-Nov-2020 Generic Substitution Allowed Comments: Caution federal law prohibits the transfer of this drug to any person other than the person for whom it was prescribed.May cause drowsiness. Alcohol may intensify this effect. Use care when operating dangerous machinery.Obtain medical advice before taking any non-prescription drugs as some may affect the action of this medication. Comment on above: Caution federal law prohibits the transfer of this drug to any person other than the person for whom it was prescribed.May cause drowsiness. Alcohol may intensify this effect. Use care when operating dangerous machinery.Obtain medical advice before taking any non-prescription drugs as some may affect the action of this medication. venlafaxine 25 mg oral tablet (1 source) Serotonin and Norepinephrine Reuptake Inhibitor take 1 tablet by mouth at bedtime venlafaxine 25 MG tablet Take 25 mg by mouth at bedtime. 0 Active Problems Active Problems Problem Classification Problem Date Documented Date Episodic/Chronic Abdominal pain (7 sources) Right lower quadrant pain; Translations: [Abdominal pain] Onset: 07-27-2019 11-26-2020 Episodic Comment on above: ABD PAIN Abdominal pain (2 sources) Pelvic and perineal pain; Translations: [PELVIC AND PERINEAL PAIN] Onset: 12-21-2019 Allergic reactions (2 sources) Allergy, unspecified, initial encounter; Translations: [Allergy, unspecified, initial encounter] Onset: 08-17-2023 Episodic Coagulation and hemorrhagic disorders (2 sources) Blood coagulation disorder; Translations: [Hemorrhagic condition, unspecified] Onset: 12-14-2021 Episodic E Codes: Fall (2 sources) Unspecified fall, initial encounter; Translations: [Unspecified fall, initial encounter] Onset: 03-10-2023 Episodic E Codes: Place of occurrence (2 sources) Unspecified place in unspecified non-institutional (private) residence as the place of occurrence of the external cause; Translations: [Unspecified place in unspecified non-institutional (private) residence as the place of occurrence of the external cause] Onset: 03-10-2023 Episodic Epilepsy; convulsions (2 sources) Unspecified convulsions; Translations: [Unspecified convulsions] Onset: 03-09-2023 Episodic Other female genital disorders (2 sources) Abnormal uterine and vaginal bleeding, unspecified; Translations: [ABNORMAL UTERINE VAGINAL BLEED UNS] Onset: 02-11-2020 Chronic Other injuries and conditions due to external causes (2 sources) Unspecified injury of head, initial encounter; Translations: [Unspecified injury of head, initial encounter] Onset: 03-09-2023 Episodic Other injuries and conditions due to external causes (2 sources) Angioneurotic edema, initial encounter; Translations: [Angioneurotic edema, initial encounter] Onset: 08-17-2023 Episodic Other liver diseases (1 source) Hepatomegaly, not elsewhere classified; Translations: [Hepatomegaly, not elsewhere classified] Onset: 12-07-2022 Episodic Other nutritional; endocrine; and metabolic disorders (1 source) Localized adiposity; Translations: [Localized adiposity] Onset: 10-21-2020 10-21-2020 Chronic Other nutritional; endocrine; and metabolic disorders (1 source) Overweight; Translations: [Overweight] Onset: 12-07-2022 Episodic Other screening for suspected conditions (not mental disorders or infectious disease) (3 sources) Encounter for screening for diseases of the blood and blood-forming organs and certain disorders involving the immune mechanism; Translations: [Encounter for screening for other metabolic disorders] Onset: 12-07-2022 Episodic Ovarian cyst (2 sources) Unspecified ovarian cyst, left side; Translations: [UNSPECIFIED OVARIAN CYST LEFT SIDE] Onset: 10-17-2019 Sprains and strains (2 sources) Strain of unspecified muscle(s) and tendon(s) at lower leg level, right leg, initial encounter; Translations: [Strain of unspecified muscle(s) and tendon(s) at lower leg level, right leg, initial encounter] Onset: 03-09-2023 Episodic Unclassified (1 source) Right upper quadrant abdominal pain 11-26-2020 Past or Other Problems Problem Classification Problem Date Documented Da te Episodic/Chronic Mood disorders (1 source) Mood disorders Onset: 01-25-2022 01-25-2022 Nonspecific chest pain (2 sources) Chest pain, unspecified; Translations: [Chest pain, unspecified] Onset: 07-15-2022 Episodic Other aftercare (1 source) Follow-up examination, following surgery, unspecified; Translations: [SURGERY FOLLOW-UP NOS] Onset: 08-28-2019 Episodic Other lower respiratory disease (2 sources) Pleurodynia; Translations: [Pleurodynia] Onset: 07-15-2022 Episodic Other skin disorders (1 source) Atrophic condition of skin; Translations: [Atrophic disorder of skin, unspecified] Onset: 10-21-2020 10-21-2020 Episodic Ovarian cyst (1 source) Other and unspecified ovarian cyst; Translations: [OVARIAN CYST NEC AND NOS] Onset: 10-31-2019 Episodic Unclassified (1 source) SURGERY FOLLOW-UP NOS; Translations: [SURGERY FOLLOW-UP NOS] Onset: 08-28-2019 Unclassified (1 source) OVARIAN CYST NEC AND NOS; Translations: [OVARIAN CYST NEC AND NOS] Onset: 10-31-2019 Results Test Name Value Interpretation [facility] ([id number]) MACIEJ HAIDER ([id number]) 1995 F Date Time Provider Department 07/25/23 YUSUF ARANA NE50MN During your visit today, we recorded the following information about you: Gladis Boogie 07/25/2023 1:14 PM Signed Form received: From (agency / facility): [facility] pupil personnel worker (if given): Maciej Haider Phone #: [phone] (home) Fax # : [phone] Information requested: Request for physician statement Patient of Dr. Arana Forwarded to nurse. Kelle Cowan RN 07/25/2023 3:50 PM Signed Form completed, routed to Dr Arana in [employer]. MATTIE Collins Jennifer, RN 07/25/2023 4:47 PM Signed Form signed by Dr Arana. MCM to pt. Kelle Cowan RN Allergies As of Date: 07/25/2023 Noted Allergy Reaction LAMICTAL (LAMOTRIGINE) 06/21/2011 2 - Rash Date Reviewed: 11/26/2020 Reviewed by: Imelda Fields (Telephone Directory Deliverer) - Fully Assessed Reason for Visit: Forms [913] Cmt: [facility] Problem List As Of Date 07/25/2023 Noted Resolved Convulsions (HCC) [R56.9] 08/19/2010 Adjustment disorder [F43.20] 08/19/2010 Insufficient care [O09.30] 07/18/2012 10/03/2013 Gestational diabetes mellitus, currently pregna*07/18/2012 10/03/2013 History of scabies [Z86.19] 07/18/2012 High risk teen [O09.899] 07/18/2012 10/03/2013 Partial placenta previa [O44.20] 07/18/2012 08/30/2012 High-risk supervision [O09.90] 07/18/2012 07/18/2012 Bleeding disorder [D69.9] 11/15/2012 Cholelithiasis [K80.20] 04/25/2013 10/03/2013 Encounter Status:Closed by KELLE COWAN on 07/25/23 Normal [facility] MR CERVICAL SPINE WITHOUT CO NTRASTon 03-10-2023 MR CERVICAL SPINE WITHOUT CONTRAST EXAMINATION: MR CERVICAL SPINE WITHOUT CONTRAST HISTORY: ORDERING SYSTEM PROVIDED HISTORY: Cervical spine strain s/p fall, TECHNOLOGIST PROVIDED HISTORY: Injury/Trauma Reason for Exam: Neck pain following fall yesterday: Encounter Type: Unknown Mechanism of Injury: Fall ORDERING SYSTEM PROVIDED DIAGNOSIS CODES: S09.90XA Closed head injury, initial encounter S86.911A Strain of right knee, initial encounter R56.9 Seizure ([facility]) COMPARISON: CT cervical spine 03/09/2023. TECHNIQUE: Multiplanar, multisequence MRI imaging of the cervical spine without contrast. FINDINGS: Normal alignment. No subluxation. Signal in the bone marrow space is normal. There is no bone marrow edema. No soft tissue swelling or edema in the paraspinal soft tissues. No evidence of ligamentous injury. Disc spaces are normal in height and normal in signal. Facet joints normal. There are no degenerative changes identified in the cervical spine. No disc bulge. No focal disc protrusion. No spinal stenosis. No foraminal narrowing. No spinal cord compression. No abnormal signal in the cervical spinal cord. No epidural hematoma. IMPRESSION: Normal MRI of the cervical spine. DMG/lab Workstation ID: [id number] Dictated by: NGOC HARKINS on TueMar 10, 2023 11:48:23 AM EDT Transcribed by: RIRI BALLARD on TueMar 10, 2023 12:45:46 PM EDT Finalized by: NGOC HARKINS on TueMar 10, 2023 4:42:00 PM EDT Normal [facility] Comment on above: Order Comment: Injur y/Trauma or Illness?:Injury/Trauma How long have you had these symptoms (acute/chronic)?:Acute Reason for exam?:neck pain following fall yesterday: Type of Exam?:Unknown Mechanism of injury?:fall CT CERVICAL SPINE WITHOUT CO NTRASTon 03-09-2023 CT CERVICAL SPINE WITHOUT CONTRAST EXAMINATION: CT CERVICAL SPINE WITHOUT CONTRAST 03/09/2023 COMPARISON: None. HISTORY: Injury/Trauma or Illness?:Injury/Trauma How long have you had these symptoms (acute/chronic)?:Acute fall TECHNIQUE: 2.5 mm axial images performed from the skull base to the T1 level with 2 mm sagittal and coronal MPR. Dose reduction techniques were achieved by using automated exposure control and/or adjustment of mA and/or kV according to patient size and/or use of iterative reconstruction technique. FINDINGS: No acute fracture is identified from the skull base to the T1 level. On the coronal and sagittal reconstructions the cervical spine is in good alignment without any displaced fractures or acute abnormality. Soft tissues are unremarkable. IMPRESSION: 1. No acute abnormality of cervical spine. GJT/mkv Workstation ID: [id number] Dictated by: ATILIO CURRY on TueMar 09, 2023 8:01:50 PM EDT Transcribed by: JONAS WALTON on TueMar 09, 2023 8:05:38 PM EDT Finalized by: ATILIO CURRY on TueMar 09, 2023 9:16:22 PM EDT Normal [facility] Comment on above: Order Comment: Injur y/Trauma or Illness?:Injury/Trauma How long have you had these symptoms (acute/chronic)?:Acute Reason for exam?:head and neck injury s/p fall from standing with seizure Type of Exam?:Initial Mechanism of injury?:head and neck injury s/p fall from standing with seizure CT HEAD OR BRAIN WITHOUT CON TRASTon 03-09-2023 CT HEAD OR BRAIN WITHOUT CONTRAST EXAMINATION: CT HEAD OR BRAIN WITHOUT CONTRAST, 03/09/2023 COMPARISON: CT scan of the head, 06/16/2011. HISTORY: Injury/Trauma or Illness?:Injury/Trauma How long have you had these symptoms (acute/chronic)?:Acute fall TECHNIQUE: 2.5 mm axial images performed through the head. 2.5 mm axial, sagittal and coronal MPR reconstructions performed. Dose reduction techniques were achieved by using automated exposure control and/or adjustment of mA and/or kV according to patient size and/or use of iterative reconstruction technique. FINDINGS: The third, fourth, and lateral ventricles are normal in size, shape and position. There is no evidence of acute hemorrhage, mass effect or midline shift. Minimal mucosal thickening in the maxillary sinuses bilaterally. Apical lucency of a right 2nd maxillary molar protruding into the base of the right maxillary sinus adjacent to some mucosal thickening. There is also some apical lucency in the left 2nd maxillary incisor (image number [id number], series 602 and image number 5 and 7, series 304). Mastoid air cells are clear. Left nasal piercing present. IMPRESSION: 1. No acute intracranial abnormality identified. 2. Minimal mucosal thickening of the maxillary sinuses, right greater than left corresponding to some chronic sinusitis. 3. Apical lucency in the right 2nd maxillary molar protruding into the base of the right maxillary sinus and also some apical lucency of the 2nd left maxillary incisor could be better assessed with dental consultation. T/r Workstation ID: [id number] Dictated by: ATILIO CURRY on TueMar 09, 2023 8:00:10 PM EDT Transcribed by: AI HARDY on TueMar 09, 2023 8:02:39 PM EDT Finalized by: ATILIO CURRY on TueMar 09, 2023 9:16:25 PM EDT [facility] Comment on above: Order Comment: Injur y/Trauma or Illness?:Injury/Trauma How long have you had these symptoms (acute/chronic)?:Acute Reason for exam?:head and neck injury s/p fall from standing with seizure unable to remove nose and earring for the scan Type of Exam?:Initial Mechanism of injury?:head and neck injury s/p fall from standing with seizure XR CHEST PA/APon 03-09-2023 XR CHEST PA/AP EXAMINATION: 1-VIEW XR CHEST PA/AP 03/09/2023 COMPARISON: Chest, 07/14/2022. HISTORY: Injury/Trauma or Illness?:Injury/Trauma How long have you had these symptoms (acute/chronic)?:Acute fall FINDINGS: The lungs are clear with no acute cardiopulmonary disease. No pulmonary edema, pneumothorax or pleural effusion. The heart, mediastinal structures and visualized bony structures are unremarkable. IMPRESSION: 1. No acute abnormality. [facility] Workstation ID: [id number] Dictated by: ATILIO CURRY on TueMar 09, 2023 7:56:05 PM EDT Transcribed by: JONAS WALTON on TueMar 09, 2023 7:57:11 PM EDT Finalized by: ATILIO CURRY on TueMar 09, 2023 9:16:28 PM EDT [facility] Comment on above: Order Comment: Injur y/Trauma or Illness?:Injury/Trauma How long have you had these symptoms (acute/chronic)?:Acute Reason for exam?:fall History of cancer?:Unknown Surgeries, chemotherapy, or radiation?:Left oophorectomy and endometrial ligation Type of Exam?:Initial Mechanism of injury?: XR KNEE RIGHT 2 VIEWS (STAND RUTH)on 03-09-2023 XR KNEE RIGHT 2 VIEWS (STANDARD) EXAMINATION: XR KNEE RIGHT 2 VIEWS (STANDARD) HISTORY: F, 27 y/o , fall with pain COMPARISON: None TECHNIQUE: Two views of the right knee are performed. FINDINGS: There is no acute fracture.Joint spaces are maintained.No suprapatellar effusion. Unremarkable soft tissues. IMPRESSION: No acute bony abnormality. Workstation ID: [id number] Dictated by: KENA FISHER on TueMar 09, 2023 8:24:46 PM EDT Transcribed by: KENA FISHER on TueMar 09, 2023 8:24:46 PM EDT Finalized by: KENA FISHER on TueMar 09, 2023 8:24:46 PM EDT Normal [facility] Comment on above: Order Comment: Injur y/Trauma or Illness?:Injury/Trauma How long have you had these symptoms (acute/chronic)?:Acute Reason for exam?:fall after sugery, abrasion to right knee around knee cap History of cancer?:Unknown Surgeries, chemotherapy, or radiation?:Left oophorectomy and endometrial ligation Type of Exam?:Initial Mechanism of injury?:fall XR PELVIS 1 VIEW (STANDARD)o n 03-09-2023 XR PELVIS 1 VIEW (STANDARD) EXAMINATION: SINGLE FRONTAL VIEW OF THE PELVIS 03/09/2023 COMPARISON: Chest, 07/14/2022 HISTORY: Injury/Trauma or Illness?:Injury/Trauma How long have you had these symptoms (acute/chronic)?:Acutef all Injury/Trauma or Illness?:Injury/Trauma How long have you had these symptoms (acute/chronic)?:Acute Reason for exam?:fall History of cancer?:Unknown Surgeries, chemotherapy, or radiation?:Left oophorectomy and endometrial ligation fall FINDINGS: Patient is in a slight left posterior oblique position. No acute fracture, subluxation or dislocation. Urinary bladder is slightly distended. IMPRESSION: 1. No acute fracture or osseous abnormality identified as described above. 2. Urinary bladder is slightly distended. GJT/mkv Workstation ID: [id number] Dictated by: ATILIO CURRY on TueMar 09, 2023 8:02:49 PM EDT Transcribed by: JONAS WALTON on TueMar 09, 2023 8:13:07 PM EDT Finalized by: ATILIO CURRY on TueMar 09, 2023 9:16:18 PM EDT Normal [facility] Comment on above: Order Comment: Injur y/Trauma or Illness?:Injury/Trauma How long have you had these symptoms (acute/chronic)?:Acute Reason for exam?:fall History of cancer?:Unknown Surgeries, chemotherapy, or radiation?:Left oophorectomy and endometrial ligation Type of Exam?:Initial Mechanism of injury?: XR CHEST AP/PA AND LATon XR CHEST AP/PA AND LAT EXAMINATION: XR CHEST AP/PA AND LAT 07/14/2022 11:10 pm HISTORY: ORDERING SYSTEM PROVIDED HISTORY: Chest Pain, TECHNOLOGIST PROVIDED HISTORY: Illness/Other Reason for exam: chest pain that radiates down left arm worsening with inspiration Cancer History: Unknown Surgery, RadiationHistory: Left oophorectomy and endometrial ligation Encounter Type: Initial Additional signs and symptoms: ORDERING SYSTEM PROVIDED DIAGNOSIS CODES: COMPARISON: Chest x-ray dated 06/16/2011 FINDINGS: The heart size is normal. No dense focal consolidation, pneumothorax or pleural effusion is seen. No acute osseous abnormality is seen. IMPRESSION: No radiographic evidence for acute cardiopulmonary disease. Workstation ID: [id number] Dictated by: BEKAH QUINTANA on TueJul 15, 2022 12:04:02 AM EST Transcribed by: EBKAH QUINTANA on TueJul 15, 2022 12:04:02 AM EST Finalized by: BEKAH QUINTANA on TueJul 15, 2022 12:04:02 AM EST [facility] Comment on above: Order Comment: Injur y/Trauma or Illness?:Illness/Other How long have you had these symptoms (acute/chronic)?:Acute Reason for exam?:chest pain that radiates down left arm worsening with inspiration History of cancer?:Unknown Surgeries, chemotherapy, or radiation?:Left oophorectomy and endometrial ligation Type of Exam?:Initial Additional signs and symptoms?: C REACTIVE PROTEINon 022 CRP [Mass/Vol] 0.46 mg/L Normal <10.00 [facility] Comment on above: Performed By: #### C , IRBC #### [facility] (DEFAULT) [address] [place] [address] CRP High sensitivity method [Mass/Vol] 0.46 mg/L <10.00 [facility] CBC AND ELECTRONIC DIFFon Basophils (Bld) [#/Vol] 10*3/uL Normal 0.00-0.15 [facility] Comment on above: Performed By: #### L [id number] #### [facility] (DEFAULT) [address] [address] Basophils/100 WBC (Bld) 0.4 % Normal [facility] Comment on above: Performed By: #### L [id number] #### [facility] (DEFAULT) [address] [address] DIFF STATUS Electronic Differential Normal [facility] Comment on above: Performed By: #### L AB980 #### [facility] (DEFAULT) [address] [address] Eosinophils (Bld) [#/Vol] 0.13 10*3/uL Normal 0.00-0.42 [facility] Comment on above: Performed By: #### L AB980 #### [facility] (DEFAULT) [address] [address] Eosinophils/100 WBC (Bld) 1.6 % Normal [facility] Comment on above: Performed By: #### L AB980 #### [facility] (DEFAULT) [address] [address] Hematocrit (Bld) [Volume fraction] 42.9 % Normal 34.9-44.3 [facility] Comment on above: Performed By: #### L AB980 #### [facility] (DEFAULT) [address] [address] Hemoglobin (Bld) [Mass/Vol] 14.5 g/dL Normal 11.4-15.2 [facility] Comment on above: Performed By: #### L AB980 #### [facility] (DEFAULT) [address] [address] Immature Grans % 0.4 % Normal [facility] Comment on above: Performed By: #### L AB980 #### [facility] (DEFAULT) [address] [address] Immature Grans Absolute <0.04 Normal <=0.08 [facility] Comment on above: Performed By: #### L AB980 #### [facility] (DEFAULT) [address] [address] Lymphocytes (Bld) [#/Vol] 2.71 10*3/uL Normal 1.16-3.51 [facility] Comment on above: Performed By: #### L AB980 #### [facility] (DEFAULT) [address] [address] Lymphocytes/100 WBC (Bld) 33.3 % Normal [facility] Comment on above: Performed By: #### L AB980 #### [facility] (DEFAULT) [address] [address] MCV (RBC) [Entitic vol] 88.1 fL Normal 79.6-97.7 [facility] Comment on above: Performed By: #### L AB980 #### [facility] (DEFAULT) [address] [address] Mean Cell Hgb 29.8 pg Normal 25.9-33.9 [facility] Comment on above: Performed By: #### L AB980 #### [facility] (DEFAULT) [address] [address] Mean Cell Hgb Conc 33.8 g/dL Normal 31.4-35.9 [facility] Comment on above: Performed By: #### L AB980 #### [facility] (DEFAULT) [address] [address] Monocytes (Bld) [#/Vol] 0.36 10*3/uL Normal 0.22-0.87 [facility] Comment on above: Performed By: #### L AB980 #### [facility] (DEFAULT) [address] [place] [address] Monocytes/100 WBC (Bld) 4.4 % Normal [facility] Comment on above: Performed By: #### L AB980 #### [facility] (DEFAULT) [address] [place] [address] Nucleated RBC 0.0 /100 WBC Normal <=0.2 [facility] Comment on above: Performed By: #### L AB980 #### [facility] (DEFAULT) [address] [place] [address] Platelet mean volume (Bld) [Entitic vol] 10.5 fL Normal 8.5-12.2 [facility] Comment on above: Performed By: #### L [id number] #### [facility] (DEFAULT) [address] [place] [address] Platelets (Bld) [#/Vol] 244 10*3/uL Normal 150-393 [facility] Comment on above: Performed By: #### L AB980 #### [facility] (DEFAULT) [address] [place] [address] RBC (Bld) [#/Vol] 4.87 10*6/uL Normal 3.91-5.04 [facility] Comment on above: Performed By: #### L AB980 #### [facility] (DEFAULT) [address] [place] [address] RBC Distribution 11.8 % Normal 10.8-14.9 [facility] Comment on above: Performed By: #### L AB980 #### [facility] (DEFAULT) [address] [address] Segs + Bands Auto 59.9 % Normal [facility] Comment on above: Performed By: #### L AB980 #### [facility] (DEFAULT) [address] [place] [address] Segs + Bands,Absolute Auto 4.89 K/uL Normal 1.64-7.28 [facility] Comment on above: Performed By: #### L [id number] #### [facility] (DEFAULT) [address] [place] [address] WBC (Bld) [#/Vol] 8.15 10*3/uL Normal 3.99-11.19 [facility] Comment on above: Performed By: #### L [id number] #### [facility] (DEFAULT) [address] [place] [address] Basophils (Bld) [#/Vol] 10*3/uL 0.00 - 0.15 K/uL [facility] Basophils/100 WBC (Bld) 0.4 % [facility] Differential cell count method Nom (Bld) Electronic Differential [facility] Eosinophils (Bld) [#/Vol] 0.13 10*3/uL 0.00 - 0.42 K/uL [facility] Eosinophils/100 WBC (Bld) 1.6 % [facility] Erythrocyte distribution width (RBC) [Ratio] 11.8 % 10.8 - 14.9 % [facility] Hematocrit (Bld) [Volume fraction] 42.9 % 34.9 - 44.3 % [facility] Hemoglobin (Bld) [Mass/Vol] 14.5 g/dL 11.4 - 15.2 g/dL [facility] Immature granulocytes (Bld) [#/Vol] 10*3/uL <=0.08 K/uL [facility] Immature granulocytes/100 WBC (Bld) 0.4 % [facility] Lymphocytes (Bld) [#/Vol] 2.71 10*3/uL 1.16 - 3.51 K/uL [facility] Lymphocytes/100 WBC (Bld) 33.3 % [facility] MCH (RBC) [Entitic mass] 29.8 pg 25.9 - 33.9 pg [facility] MCHC (RBC) [Mass/Vol] 33.8 g/dL 31.4 - 35.9 g/dL [facility] MCV (RBC) [Entitic vol] 88.1 fL 79.6 - 97.7 fL [facility] Monocytes (Bld) [#/Vol] 0.36 10*3/uL 0.22 - 0.87 K/uL [facility] Monocytes/100 WBC (Bld) 4.4 % [facility] Neutrophils (Bld) [#/Vol] 4.89 10*3/uL 1.64 - 7.28 K/uL [facility] Nucleated RBC/100 WBC (Bld) [Ratio] 0.0 % <=0.2 /100 WBC [facility] Platelet mean volume (Bld) [Entitic vol] 10.5 fL 8.5 - 12.2 fL [facility] Platelets (Bld) [#/Vol] 244 10*3/uL 150 - 393 K/uL [facility] RBC (Bld) [#/Vol] 4.87 10*6/uL [facility] Segmented neutrophils/100 WBC (Bld) 59.9 % [facility] WBC (Bld) [#/Vol] 8.15 10*3/uL 3.99 - 11. 19 K/uL [facility] FACTOR VII ACTIVITYon 2021 Factor VII 74 % Activity Normal 65-135 [facility] Comment on above: Performed By: #### F ERIB #### [facility] (DEFAULT) [address] [place] [address] FACTOR XIII ACTIVITYon 01-25 Factor XIII Present Normal Present [facility] Comment on above: Performed By: #### F A13 #### [facility] (DEFAULT) [address] [place] [address] FERRITINon 01-25-2022 Ferritin [Mass/Vol] 28.3 ng/mL 10.0 - 2 91.0 ng/mL [facility] Interpretation and review of laboratory results Normal [facility] Ferritin [Mass/Vol] 28.3 ng/mL Normal 10.0-291.0 [facility] Comment on above: Performed By: #### F ERIB #### [facility] (DEFAULT) [address] [place] [address] IRON/IRON BINDING/TRANSFERRI Non 01-25-2022 Iron [Mass/Vol] 94 ug/dL Normal 40-174 [facility] Comment on above: Performed By: #### C RP, IRBC #### [facility] (DEFAULT) [address] [place] [address] Iron Saturation 27 % Normal 20-55 [facility] Comment on above: Performed By: #### C RP, IRBC #### [facility] (DEFAULT) [address] [place] [address] Total Iron Binding Capacity 348 mcg/dL Normal 250-425 [facility] Comment on above: Performed By: #### C RP, IRBC #### [facility] (DEFAULT) [address] [place] [address] Transferrin [Mass/Vol] 278 mg/dL Normal 200-400 [facility] Comment on above: Performed By: #### C RP, IRBC #### [facility] (DEFAULT) [address] [place] [address] Iron [Mass/Vol] 94 ug/dL [facility] Iron binding capacity [Mass/Vol] 348 [facility] Iron saturation [Mass fraction] 27 % 20 - 55 % [facility] Transferrin [Mass/Vol] 278 mg/dL 200 - 400 mg/dL [facility] No Panel Informationon 01-25 Interpretation and review of laboratory results Normal [facility] PLATELET FUNCTION TESTOrdere d By: Darryl Graves on 01-25-2022 Platelet function (closure time) collagen+ADP induced (Bld) [Time] 109 [facility] Platelet function (closure time) collagen+EPINEPHrin e induced (Bld) [Time] 152 [facility] Platelet Function Interpretation Normal Collagen/Epinephrine and Collagen/ADP Closure Times. Result consistent with normal platelet function. [facility] PLATELET FUNCTION TESTon Collagen/ADP Closure Time 109 sec Normal 53-111 [facility] Comment on above: Performed By: #### P FST #### [facility] (DEFAULT) [address] [place] [address] Collagen/Epinephrin e Closure Time 152 sec Normal 73-172 [facility] Comment on above: Performed By: #### P FST #### [facility] (DEFAULT) [address] [place] [address] Platelet Function Interpretation Normal Collagen/Epinephrine and Collagen/ADP Closure Times. Result consistent with normal platelet function. Normal [facility] Comment on above: Performed By: #### P FST #### [facility] (DEFAULT) [address] [place] [address] PT,INR,PTTon 01-25-2022 aPTT Coag (Bld) [Time] 30.5 s Normal 24.0-34.3 [facility] Comment on above: Performed By: #### P TPTT #### [facility] (DEFAULT) [address] [place] [address] INR Coag (PPP) [Relative time] 1.0 {INR} Normal 0.9-1.1 [facility] Comment on above: Performed By: #### P TPTT #### [facility] (DEFAULT) [address] [place] [address] PT Coag (PPP) [Time] 12.9 s Normal 11.9-14.2 [facility] Comment on above: Performed By: #### P TPTT #### [facility] (DEFAULT) [address] [address] aPTT Coag (PPP) [Time] 30.5 s [facility] INR Coag (Bld) [Relative time] 1.0 {INR} [facility] Interpretation and review of laboratory results Normal [facility] PT Coag (PPP) [Time] 12.9 s [facility] VWDB-ROUTINE COAGon 01-26-20 22 aPTT Coag (PPP) [Time] 30.0 s [facility] Interpretation and review of laboratory results Normal [facility] aPTT Coag (Bld) [Time] 30.0 s Normal 24.0-34.3 [facility] Comment on above: Performed By: #### L [id number] #### [facility] (DEFAULT) [address] [place] [address] VWDB-SPECIAL COAGon 01-26-20 22 Factor VIII 47 % Activity Low 75-220 [facility] Comment on above: Performed By: #### F ERIB #### [facility] (DEFAULT) [address] [place] [address] Ristocetin Cofactor 67 % Activity Normal 40-200 [facility] Comment on above: Performed By: #### F ERIB #### [facility] (DEFAULT) [address] [place] [address] Von Willebrand Factor Antigen 71 % Normal 50-180 [facility] Comment on above: Performed By: #### F ERIB #### [facility] (DEFAULT) [address] [place] [address] BETA HCG, QUANT, BLOODon HCG (Quant) Serum <2.6 Normal [facility] Comment on above: Result Comment: Non- : <10 mIU/mL Postmenopause: <10 mIU/mL Male: <10 mIU/mL FEMALE GESTATIONAL AGE 2-4 Weeks: 39.1-8,388 mIU/mL 5-6 Weeks: 861-88,769 mIU/mL 6-8 Weeks: 8,636-218,085 mIU/mL 8-10 Weeks: 18,700-244,467 mIU/mL 10-12 Weeks: 23,143-181,899 mIU/mL 13-27 Weeks: 6,303-97,171 mIU/mL 24-40 Weeks: 4,360-74,883 mIU/mL Test results cannot be interpreted as absolute evidence for the presence or absence of malignant disease. Performed By: #### Q HCGB #### [facility] (DEFAULT) [address] [place] [address] CBC AND ELECTRONIC DIFFon Basophils (Bld) [#/Vol] 0.05 10*3/uL Normal 0.00-0.15 [facility] Comment on above: Performed By: #### L [id number] #### [facility] (DEFAULT) [address] [place] [address] Basophils/100 WBC (Bld) 0.6 % Normal [facility] Comment on above: Performed By: #### L AB980 #### [facility] (DEFAULT) [address] [place] [address] DIFF STATUS Electronic Differential Normal [facility] Comment on above: Performed By: #### L AB980 #### [facility] (DEFAULT) [address] [place] [address] Eosinophils (Bld) [#/Vol] 0.37 10*3/uL Normal 0.00-0.42 [facility] Comment on above: Performed By: #### L AB980 #### [facility] (DEFAULT) [address] [address] Eosinophils/100 WBC (Bld) 4.6 % Normal [facility] Comment on above: Performed By: #### L AB980 #### [facility] (DEFAULT) [address] [address] Hematocrit (Bld) [Volume fraction] 35.6 % Normal 34.9-44.3 [facility] Comment on above: Performed By: #### L AB980 #### [facility] (DEFAULT) [address] [address] Hemoglobin (Bld) [Mass/Vol] 11.5 g/dL Normal 11.4-15.2 [facility] Comment on above: Performed By: #### L AB980 #### [facility] (DEFAULT) [address] [address] Immature Grans % 0.7 % Normal [facility] Comment on above: Performed By: #### L AB980 #### [facility] (DEFAULT) [address] [place] [address] Immature Grans Absolute 0.06 K/uL Normal <=0.09 [facility] Comment on above: Performed By: #### L AB980 #### [facility] (DEFAULT) [address] [place] [address] Lymphocytes (Bld) [#/Vol] 2.42 10*3/uL Normal 1.16-3.51 [facility] Comment on above: Performed By: #### L AB980 #### [facility] (DEFAULT) [address] [address] Lymphocytes/100 WBC (Bld) 29.8 % Normal [facility] Comment on above: Performed By: #### L AB980 #### [facility] (DEFAULT) [address] [address] MCV (RBC) [Entitic vol] 89.2 fL Normal 79.6-97.7 [facility] Comment on above: Performed By: #### L AB980 #### [facility] (DEFAULT) [address] [address] Mean Cell Hgb 28.8 pg Normal 25.9-33.9 [facility] Comment on above: Performed By: #### L AB980 #### [facility] (DEFAULT) [address] [address] Mean Cell Hgb Conc 32.3 g/dL Normal 31.4-35.9 [facility] Comment on above: Performed By: #### L AB980 #### [facility] (DEFAULT) [address] [place] [address] Monocytes (Bld) [#/Vol] 0.52 10*3/uL Normal 0.22-0.87 [facility] Comment on above: Performed By: #### L AB980 #### [facility] (DEFAULT) [address] [place] [address] Monocytes/100 WBC (Bld) 6.4 % Normal [facility] Comment on above: Performed By: #### L AB980 #### [facility] (DEFAULT) [address] [place] [address] Nucleated RBC 0.0 /100 WBC Normal <=0.2 [facility] Comment on above: Performed By: #### L AB980 #### [facility] (DEFAULT) [address] [address] Platelet mean volume (Bld) [Entitic vol] 9.9 fL Normal 8.5-12.2 [facility] Comment on above: Performed By: #### L AB980 #### [facility] (DEFAULT) [address] [place] [address] Platelets (Bld) [#/Vol] 269 10*3/uL Normal 150-393 [facility] Comment on above: Performed By: #### L AB980 #### [facility] (DEFAULT) [address] [address] RBC (Bld) [#/Vol] 3.99 10*6/uL Normal 3.91-5.04 [facility] Comment on above: Performed By: #### L AB980 #### [facility] (DEFAULT) [address] [place] [address] RBC Distribution 11.9 % Normal 10.8-14.9 [facility] Comment on above: Performed By: #### L AB980 #### [facility] (DEFAULT) [address] [address] Segs + Bands Auto 57.9 % Normal [facility] Comment on above: Performed By: #### L AB980 #### [facility] (DEFAULT) [address] [place] [address] Segs + Bands,Absolute Auto 4.71 K/uL Normal 1.64-7.28 [facility] Comment on above: Performed By: #### L AB980 #### [facility] (DEFAULT) [address] [place] [address] WBC (Bld) [#/Vol] 8.13 10*3/uL Normal 3.99-11.19 [facility] Comment on above: Performed By: #### L [id number] #### [facility] (DEFAULT) [address] [place] [address] CHEM 6 (LYTES, BUN CREA)on 0 - Anion gap [Moles/Vol] 8 mmol/L Normal 7-17 [facility] Comment on above: Performed By: #### F ERIB #### [facility] (DEFAULT) [address] [place] [address] Chloride [Moles/Vol] 106 mmol/L Normal 98-108 [facility] Comment on above: Performed By: #### F ERIB #### [facility] (DEFAULT) [address] [place] [address] CO2 [Moles/Vol] 28 mmol/L Normal 21-31 [facility] Comment on above: Performed By: #### F ERIB #### [facility] (DEFAULT) [address] [place] [address] Creatinine [Mass/Vol] 0.62 mg/dL Normal 0.50-1.20 [facility] Comment on above: Performed By: #### F ERIB #### [facility] (DEFAULT) [address] [place] [address] eGFR, CKD-EPI, Female >90 Normal >=60 [facility] Comment on above: Result Comment: Repo rted eGFR is based on the CKD-EPI 2020 equation using creatinine, age, and sex. Performed By: #### F ERIB #### [facility] (DEFAULT) [address] [place] [address] Potassium [Moles/Vol] 3.7 mmol/L Normal 3.5-5.0 [facility] Comment on above: Performed By: #### F ERIB #### [facility] (DEFAULT) [address] [place] [address] Sodium [Moles/Vol] 138 mmol/L Normal 135-145 [facility] Comment on above: Performed By: #### F ERIB #### [facility] (DEFAULT) [address] [place] [address] Urea nitrogen [Mass/Vol] 8 mg/dL Normal 7-25 [facility] Comment on above: Performed By: #### F ERIB #### [facility] (DEFAULT) [address] [place] [address] Urea nitrogen/Creatinine [Mass ratio] 13 mg/mg Normal [facility] Comment on above: Performed By: #### F ERIB #### [facility] (DEFAULT) [address] [place] [address] GLUCOSEon 11-12-2021 Glucose [Mass/Vol] 87 mg/dL Normal 70-99 [facility] Comment on above: Performed By: #### F ERIB #### [facility] (DEFAULT) [address] [place] [address] HEPATIC FUNCTION PANELon Albumin [Mass/Vol] 4.1 g/dL Normal 3.5-5.0 [facility] Comment on above: Performed By: #### F ERIB #### [facility] (DEFAULT) [address] [place] [address] ALP [Catalytic activity/Vol] 61 U/L Normal 32-126 [facility] Comment on above: Performed By: #### F ERIB #### [facility] (DEFAULT) [address] [place] [address]273 ALT [Catalytic activity/Vol] 26 U/L Normal 9-48 [facility] Comment on above: Performed By: #### F ERIB #### [facility] (DEFAULT) [address] [place] [address]687 AST [Catalytic activity/Vol] 15 U/L Normal 10-39 [facility] Comment on above: Performed By: #### F ERIB #### [facility] (DEFAULT) [address] [place] [address] Bilirubin [Mass/Vol] 0.3 mg/dL Normal <1.5 [facility] Comment on above: Performed By: #### F ERIB #### [facility] (DEFAULT) [address] [place] [address] Bilirubin.indirect [Mass/Vol] 0.1 mg/dL Normal <0.3 [facility] Comment on above: Performed By: #### F ERIB #### [facility] (DEFAULT) [address] [place] [address] 98365 Protein [Mass/Vol] 6.7 g/dL Normal 6.4-8.3 [facility] Comment on above: Performed By: #### F ERIB #### [facility] (DEFAULT) [address] [place] [id number] LIPASEon 11-12-2021 Lipase [Catalytic activity/Vol] 21 U/L Normal 11-82 [facility] Comment on above: Performed By: #### F ERIB #### [facility] (DEFAULT) [address] [place] [id number] US PELVIC W TRANSVAGINALon 0 11-12-2021 US PELVIC W TRANSVAGINAL EXAM: US PELVIC W TRANSVAGINAL, 11/12/2021 14:22 PM CLINICAL INDICATIONS: vaginal bleeding COMPARISON: None. TECHNIQUE: Ultrasound of the pelvis was performed using both transabdominal and transvaginal imaging. Duplex scan, color flow images, and spectral waveforms were obtained. FINDINGS: Uterus: Status post hysterectomy. A small amount of complex fluid is seen in the surgical bed. Ovaries: The right ovary measures 8.2 x 4.9 x 5.5 cm. It contains a simple cyst measuring 5.7 x 4.1 x 5.2 cm. Along the periphery of the ovary is a heterogeneous focus with vascularity that could represent hematoma from prior pelvic surgery. The left ovary has been resected. Arterial and venous waveforms are seen in both ovaries. Bladder: The urinary bladder is normal. Cul-de-sac: There is no free fluid in the cul-de-sac. IMPRESSION: 1. Status post hysterectomy and left oophorectomy. A small amount of complex fluid is seen in the surgical bed, likely representing blood products. 2. Benign simple cyst in the right ovary. 3. Heterogeneous focus in the right ovary may represent hematoma from prior pelvic surgery is recommended to assess for resolution/evolution. Normal [facility] BASIC METABOLIC PANELon 05-2 Anion gap [Moles/Vol] 12 mmol/L Normal 10 - 20 [facility] Comment on above: Performed By: #### B MP #### [address] [address] Calcium [Mass/Vol] 9.3 mg/dL Normal 8.6 - 10.3 [facility] Comment on above: Performed By: #### B MP #### [address] [address] Chloride [Moles/Vol] 106 mmol/L Normal 98 - 107 [facility] Comment on above: Performed By: #### B MP #### [address] [address] Creatinine [Mass/Vol] 0.70 mg/dL Normal 0.50 - 1.05 [facility] Comment on above: Performed By: #### B MP #### [address] [address] GFR- AM. >60 Normal >60 [facility] Comment on above: Result Comment: CALC ULATIONS OF ESTIMATED GFR ARE PERFORMED USING THE MDRD STUDY EQUATION FOR THE IDMS-TRACEABLE CREATININE METHODS. CLIN CHEM 2007;53:766-72 Performed By: #### B MP #### [address] [address] GFR-NON AM. >60 Normal >60 [facility] Comment on above: Performed By: #### B MP #### [address] [address] Glucose [Mass/Vol] 97 mg/dL Normal 74 - 99 [facility] Comment on above: Performed By: #### B MP #### [address] [address] HCO3 (Bld) [Moles/Vol] 25 mmol/L Normal 21 - 32 [facility] Comment on above: Performed By: #### B MP #### [address] [address] Potassium [Moles/Vol] 3.5 mmol/L Normal 3.5 - 5.3 [facility] Comment on above: Performed By: #### B MP #### [address] [address] Sodium [Moles/Vol] 139 mmol/L Normal 136 - 145 [facility] Comment on above: Performed By: #### B MP #### [address] [address] Urea nitrogen [Mass/Vol] 10 mg/dL Normal 6 - 23 [facility] Comment on above: Performed By: #### B MP #### [address] [address] CBC AND DIFFERENTIALon 11-26 Basophils (Bld) [#/Vol] 0.00 10*3/uL Normal 0.00 - 0.10 [facility] Comment on above: Performed By: #### C BCDF #### [address] [address] Basophils/100 WBC (Bld) 0.3 % Normal 0.0 - 2.0 [facility] Comment on above: Performed By: #### C BCDF #### [address] [address] Eosinophils (Bld) [#/Vol] 0.20 10*3/uL Normal 0.00 - 0.70 [facility] Comment on above: Performed By: #### C BCDF #### [address] [address] Eosinophils/100 WBC (Bld) 2.3 % Normal 0.0 - 6.0 [facility] Comment on above: Performed By: #### C BCDF #### [address] [address] Erythrocyte distribution width (RBC) [Ratio] 12.9 % Normal 11.5 - 14.5 [facility] Comment on above: Performed By: #### C BCDF #### [address] [address] Hematocrit (Bld) [Volume fraction] 36.5 % Normal 36.0 - 46.0 [facility] Comment on above: Performed By: #### C BCDF #### [address] [address] Hemoglobin (Bld) [Mass/Vol] 12.6 g/dL Normal 12.0 - 16.0 [facility] Comment on above: Performed By: #### C BCDF #### [address] [address] Lymphocytes (Bld) [#/Vol] 3.40 10*3/uL Normal 1.20 - 4.80 [facility] Comment on above: Performed By: #### C BCDF #### [address] [address] Lymphocytes/100 WBC (Bld) 34.2 % Normal 13.0 - 44.0 [facility] Comment on above: Performed By: #### C BCDF #### [address] [address] MCHC (RBC) [Mass/Vol] 34.4 g/dL Normal 32.0 - 36.0 [facility] Comment on above: Performed By: #### C BCDF #### [address] [address] MCV (RBC) [Entitic vol] 87 fL Normal 80 - 100 [facility] Comment on above: Performed By: #### C BCDF #### [address] [address] Monocytes (Bld) [#/Vol] 0.60 10*3/uL Normal 0.10 - 1.00 [facility] Comment on above: Performed By: #### C BCDF #### [address] [address] Monocytes/100 WBC (Bld) 6.0 % Normal 2.0 - 10.0 [facility] Comment on above: Performed By: #### C BCDF #### [address] [address] Neutrophils (Bld) [#/Vol] 5.60 10*3/uL Normal 1.20 - 7.70 [facility] Comment on above: Result Comment: Perc ent differential counts (%) should be interpreted in the context of the absolute cell counts (cells/L). Performed By: #### C BCDF #### [address] [address] Neutrophils/100 WBC (Bld) 57.2 % Normal 40.0 - 80.0 [facility] Comment on above: Performed By: #### C BCDF #### [address] [address] Platelets (Bld) [#/Vol] 244 10*3/uL Normal 150 - 450 [facility] Comment on above: Performed By: #### C BCDF #### [address] [address] RBC 4.19 x10E12/L Normal 4.00 - 5.20 [facility] Comment on above: Performed By: #### C BCDF #### [address] [address] WBC (Bld) [#/Vol] 9.8 10*3/uL Normal 4.4 - 11.3 [facility] Comment on above: Performed By: #### C BCDF #### [address] [address] [address] ABDOMEN AND PELVIS W IV C [facility] 11-26-2020 CT ABDOMEN AND PELVIS W IV CONTRAST Patient Name: MACIEJ HAIDER STUDY: CT ABDOMEN AND PELVIS W IV CONTRAST; 11/26/2020 2:39 am INDICATION: Upper abdominal pain. COMPARISON: CT scan of the abdomen and pelvis 09/01/2015 ACCESSION NUMBER(S): [id number] ORDERING CLINICIAN: TOSHIA REGAN TECHNIQUE: Axial CT images of the abdomen and pelvis with coronal and sagittal reconstructed images obtained after intravenous administration of 90 mL of Omnipaque 350. FINDINGS: LOWER CHEST: No acute abnormality of the lung bases. ABDOMEN: LIVER: Within normal limits. BILE DUCTS: Normal caliber. GALLBLADDER: Status post cholecystectomy. PANCREAS: Within normal limits. SPLEEN: Within normal limits. ADRENALS: Within normal limits. KIDNEYS and URETERS: Symmetric renal enhancement. No hydronephrosis or perinephric fluid collection. Subcentimeter hypodense foci bilaterally are too small to characterize VESSELS: No aortic aneurysm. RETROPERITONEUM: No pathologically enlarged retroperitoneal lymph nodes. PELVIS: REPRODUCTIVE ORGANS: Retroverted uterus. Follicular changes of the right ovary. BLADDER: Within normal limits. BOWEL: No dilated bowel. Normal appendix. PERITONEUM: Small amount fluid in the pelvis, likely physiologic. ABDOMINAL WALL: Within normal limits. BONES: No acute osseous abnormality. IMPRESSION: No acute abdominal or pelvic process. Additional findings as described. Electronically signed by: CLEMENTINA VELA MD Normal [facility] HEPATIC FUNCTION PANELon Albumin [Mass/Vol] 4.2 g/dL Normal 3.4 - 5.0 [facility] Comment on above: Performed By: #### H EPFP #### [address] [address] ALP [Catalytic activity/Vol] 50 U/L Normal 33 - 110 [facility] Comment on above: Performed By: #### H EPFP #### [address] [address] ALT [Catalytic activity/Vol] 19 U/L Normal 7 - 45 [facility] Comment on above: Result Comment: Kristin ents treated with Sulfasalazine may generate falsely decreased results for ALT. Performed By: #### H EPFP #### [address] [address] AST [Catalytic activity/Vol] 17 U/L Normal 9 - 39 [facility] Comment on above: Performed By: #### H EPFP #### [address] [address] Bilirubin [Mass/Vol] 0.3 mg/dL Normal 0.0 - 1.2 [facility] Comment on above: Performed By: #### H EPFP #### [address] [address] Bilirubin.indirect [Mass/Vol] 0.0 mg/dL Normal 0.0 - 0.3 [facility] Comment on above: Performed By: #### H EPFP #### [address] [address] Protein [Mass/Vol] 6.7 g/dL Normal 6.4 - 8.2 [facility] Comment on above: Performed By: #### H EPFP #### [address] [address] LIPASEon 11-26-2020 Lipase [Catalytic activity/Vol] 31 U/L Normal 9 - 82 [facility] Comment on above: Result Comment: Leann puncture immediately after or during the administration of Metamizole may lead to falsely low results. Testing should be performed immediately prior to Metamizole dosing. E-mduugi-i-benzoquinone imine (metabolite of Acetaminophen) will generate erroneously low results in samples for patients that have taken toxic doses of acetaminophen. Performed By: #### L IPAS #### [address] [address] Provider Note - ED v2on 11-02 Provider Note - ED v2 Provider Note - ED v2: Chart Review: ED NOTES ED NOTES: HPI: 25-year-old female chief complaint of epigastric and right upper quadrant pain for the past 3 to 4 days. Worsened just the other day after the patient's son jumped on her abdomen. No vomiting. Has a history of a cholecystectomy. A left oophorectomy and tubal removal right tubal ligation. The right ovary remains. ROS: All systems are negative other than as noted in HPI. Physical Exam I have reviewed the triage vital signs. Const: Well nourished, well developed, appears stated age, no acute distress Eyes: PERRL, EOM intact, no conjunctival injection, vision grossly normal HENT: Neck supple without meningismus , Moist mucous membranes, no pharyengeal swelling or exudate CV: Regular rate and rhythm, Warm, well-perfused extremities. Chest non tender RESP: Lungs clear bilaterally, Unlabored respiratory effort GI: soft, epigastric and right upper quadrant tenderness. Actually seems like the epigastric area is worse, non-distended, no masses : MSK: No gross deformities appreciated Skin: Warm, dry. No rashes Neuro: Alert and oriented x4, GCS 15 , services advisor II-XII grossly intact. Sensation and motor function of extremities grossly intact. Psych: Appropriate mood and affect. HISTORY OF PRESENTING ILLNESS MACIEJ is a 25 year old Female and was seen by me at 26-Nov-2020 00:17 for a chief complaint of abdominal pain (PT TO ED WITH C/O RUQ ABD PAIN X 3-4 DAYS, NO N/V OR FEVERS. REPORTS PAIN WAS WORSE AFTER PT'S SON JUMP ON HER ABD AREA TODAY.)(1). Triage Information: Most recent Vital Sign Value Date Temp (F): 98 11-25-2020 23:20 Temp (C): 36.6 11-25-2020 23:20 Heart Rate (beats/min): 62 11-25-2020 23:20 Respirations (breaths/min): 16 11-25-2020 23:20 SpO2 (%): 96 11-25-2020 23:20 BP Systolic (mm Hg): 137 11-25-2020 23:20 BP Diastolic (mm Hg): 89 11-25-2020 23:20 PAST MEDICAL HISTORY ATTESTATION: I have reviewed and confirmed nurse's/medic's notes for patient's medications, allergies, and medical, surgical, family and social history ALLERGIES/INTOLERANCES: Allergy Allergen: Lamictal Type: Drug Reaction: Unknown HEALTH HISTORY: No documented data. OUTPATIENT MEDICATIONS: Home Medications Review Status for Reconciliation: N/A Med Status: N/A No documented data. SIGNIFICANT EVENTS: Past Medical History Description:SEIZURES CRANKSHAFT GRINDER: Is : no(1) Is : no(1) RESULTS/VITAL SIGNS RESULTS: Recent Lab Results: I have reviewed these laboratory results: Hepatic Function Panel 26-Nov-2020 00:57:00 ResultValue Aspartate Transaminase, Serum 17 ALB 4.2 T Bili 0.3 Bilirubin, Serum Direct - Conjugated 0.0 ALKP 50 Alanine Aminotransferase, Serum 19 T Pro 6.7 Complete Blood Count + Differential 26-Nov-2020 00:57:00 ResultValue White Blood Cell Count 9.8 Red Blood Cell Count 4.19 HGB 12.6 HCT 36.5 MCV 87 MCHC 34.4 PLT 244 RDW-CV 12.9 Neutrophil % 57.2 Lymphocyte % 34.2 Monocyte % 6.0 Eosinophil % 2.3 Basophil % 0.3 Neutrophil Count 5.60 Lymphocyte Count 3.40 Monocyte Count 0.60 Eosinophil Count 0.20 Basophil Count 0.00 Basic Metabolic Panel 26-Nov-2020 00:57:00 ResultValue Glucose, Serum 97 NA 139 K 3.5 CL 106 Bicarbonate, Serum 25 Anion Gap, Serum 12 BUN 10 CREAT 0.70 GFR-Non >60 GFR- >60 Calcium, Serum 9.3 Urinalysis 26-Nov-2020 00:57:00 ResultValue Color, Urine Yellow Reference Range: STRAW,YELLOW Appearance, Urine HAZY Specific [place], Urine 1.015 pH, Urine 7.0 Protein, Urine NEGATIVE Glucose, Urine NEGATIVE Blood, Urine MODERATE(2+) A Ketones, Urine NEGATIVE Bilirubin, Urine NEGATIVE Urobilinogen, Urine <2.0 Nitrite, Urine Negative Leukocyte Esterase, Urine TRACE A Urinalysis, Microscopic 26-Nov-2020 00:57:00 ResultValue White Cells 26 A WBC Clumps MANY Red Blood Cells 62 A Epithelial Cells, Squamous 1 Bacteria, Urine 1+ A Mucous 1+ Amorphous Crystals 2+ Lipase, Serum 26-Nov-2020 00:57:00 ResultValue Lipase, Serum 31 Radiology Results: Impression: No acute abdominal or pelvic process. Additional findings as described. CT Abdomen and Pelvis with IV Contrast [Nov 26 2020 2:56AM] VITAL SIGNS: T PRBP SpO2O2(LPM) %FiO2 Method 25-Nov-2020 23:20:[id number] 96 room air, no respiratory support 25-Nov-2020 23:01:[id number]/89 96 room air, no respiratory support MEDICAL DECISION MAKING/ED COURSE MDM/ED COURSE: Patient's laboratory studies unremarkable for acute findings. CT scan is negative. Patient is tender right where her son jumped on her. I think it is possible that this is due to trauma. Will treat symptomatically and instruct patient to return if symptoms worsen or return. CLINICAL IMPRESSION Diagnosis/Annotation: ED Dx (more content not included)... [facility] Risk Screen - Adult Emergenc yon 11-26-2020 Risk Screen - Adult Emergency Preferred Language: Preferred Language: Preferred Language for Discussing Health Care (patient/designee)Kelsey espinal Advanced Directives: Advance Directive/DNRno Family Violence Adult: Abuse Screen: Are you or have you been threatened or abused physically, emotionally, or sexually by anyoneno Learning Assessment (Patient): Learning Assessment (Patient): Patient is Able to be Assessed for Learningyes Factors Influencing Readiness to Learnacuteness of illness; interest in learning Factors that Impact Ability to Learnnone Devices/Methods Used to Communicatenone Learning Preferencesverbal instruction; written material Cultural Considerationsnone Developmental Considerationsnone Pentecostalism Considerationsnone Learning Assessment (Other Learner): Learning Assessment (Other Learner): Other learner availableno Pressure Injury/TB/Substance: Pressure Injury: Do you have a coughno Admission Risk Screen: Significant IndicatorsComplete CAGE: CAGE: Is this an injured patient at a Trauma Center ([facility]/[place]): no Electronic Signatures: Karlie Ricci (RN) (Signed 25-Nov-2020 23:25) Authored: Preferred Language, Advanced Directives, Family Violence Adult, Learning Assessment (Patient), Learning Assessment (Other Learner), Pressure Injury/TB/Substance, Pressure Injury, CAGE Last Updated: 25-Nov-2020 23:25 by Karlie Ricci (MATTIE) [facility] Triage - EDon 11-26-2020 Triage - ED Quick Triage: Are You no Have You Given In The Last 6 Weeksno Are You Currently Breastfeedingno The patient and/or guardian verbally acknowledges placement for services into the following (when Urgent Care Service hours are operating):emergency department Chart Review: PRIMARY ASSESSMENT MACIEJ Mendez primary assessment is Within Defined Limits. The airway is open and patent. Breathing spontaneous and unlabored with clear breath sounds bilaterally. Circulation is normal with good peripheral pulses. Skin is warm and dry and color is normal for race. ARRIVAL INFORMATION Means of Arrival: Ambulatory Mode of Arrival: private vehicle Arrival From: home Accompanied By: self Language: Spoken Language Preferred: Lithuanian Reading Language Preferred: Lithuanian Jig Mill Operator Requested: no manuscript editor was requested MDRO: History of MDRO: no Present on Arrival: Device Present on Arrival to ED: no CHIEF COMPLAINT MACIEJ HAIDER is a Female patient with a chief complaint of abdominal pain (PT TO ED WITH C/O RUQ ABD PAIN X 3-4 DAYS, NO N/V OR FEVERS. REPORTS PAIN WAS WORSE AFTER PT'S SON JUMP ON HER ABD AREA TODAY.). Triage Date/Time: 25-Nov-2020 23:01 TIRSO: 3 Pain Rating (0-10): 8 = Severe Pain location: ABD Vital Signs: Temperature: 98.0F ( 36.6C) taken oral Blood Pressure: 137/89 Mean: Heart Rate: 62 Respiratory Rate: 16 Pulse Oximetry: 96% on room air, no respiratory support. Height: 5 feet 7 inches. 170.1 CM Weight: 176.3 pounds. Calculated 80.0 kg. (scale measurement) Calculated BMI (kg/m2): 27.649 Calculated BSA (m2) 1.94 Cough lasting greater than 3 weeks: no Patient immunocompromised related to: N/A Allergies: yes Last menstrual period: 25-Nov-2020 Patient has homicidal thoughts: no Symptoms Are Negative For: anorexia, constipation, diaphoresis, diarrhea, distention, fever, nausea, rectal blood and vomiting. Risk Screens Suicide Risk Screen In the Past Month: Have you wished you were or wished you could go to sleep and not wake up no In the Past Month: Have you had any actual thoughts of killing yourself no In Your Lifetime: Have you ever done anything, started to do anything, or prepared to do anything to end your life no Avalos Fall Scale Screening Has the patient fallen before (or is the patient in the ED as a result of a fall) has not had a fall Does the patient have an impaired gait does not have impaired gait Is the patient cognitively impaired not cognitively impaired Interventions: Bailey Fall Interventions: LOW INTERVENTIONS: *patient oriented to surroundings and call system, * patient/family falls education completed and documented, *patients fall status communicated during bedside handoff, *whiteboard updated, *mode of toileting discussed with patient, *bed in low position with brakes locked, *call light in reach, * non-skid footwear PAST MEDICAL HISTORY Immunization History: Last Known Tetanus Immunization: Unknown TRAVEL HISTORY Travel History Coronavirus Screening: no exposure or symptoms Travel Exposure History: NO travel to International locations in the past 30 days PAIN Pain Scale Used: NERIS Pain Rating (0-10): 8 = Severe Past Medical History: Past Medical History Reviewedyes SEIZURES: Past Medical History, Active Electronic Signatures: Karlie Ricci (RN) (Signed 25-Nov-2020 23:24) Entered: Risk Screens, Pain, Arrival, ABCD, Immunizations, Travel History, Chart Review, Scores, Past Medical History Authored: Quick Triage, Risk Screens, Pain, Arrival, ABCD, Immunizations, Travel History, Chart Review, Scores, Past Medical History Last Updated: 25-Nov-2020 23:24 by Karlie Ricci (RN) Normal [facility] UA MICROSCOPICon 11-26-2020 AMORPHOUS CRYSTAL 2+ /HPF Normal [facility] Comment on above: Performed By: #### U AMIC #### [place] [address] BACTERIA 1+ /HPF Abnormal [facility] Comment on above: Performed By: #### U AMIC #### [place] [address] Mucus Ql (Urine sed) 1+ /LPF Normal [facility] Comment on above: Performed By: #### U AMIC #### [place] [address] RBC 62 /HPF Abnormal 0-5 [facility] Comment on above: Performed By: #### U AMIC #### [place] [address] SQUAMOUS EPITH. CELLS 1 /HPF Normal [facility] Comment on above: Performed By: #### U AMIC #### [place] [address] WBC 26 /HPF Abnormal 0-5 [facility] Comment on above: Performed By: #### U AMIC #### [place] [address] WBC CLUMPS MANY Normal [facility] Comment on above: Performed By: #### U AMIC #### [address] [address] URINALYSISon 11-26-2020 Appearance (U) HAZY Normal CLEAR [facility] Comment on above: Performed By: #### U A #### [address] [address] Bilirubin Ql (U) Negative Normal NEGATIVE [facility] Comment on above: Performed By: #### U A #### [place] [id number] Color (U) Yellow Normal STRAW,YELLOW [facility] Comment on above: Performed By: #### U A #### [address] [address] Glucose Ql (U) Negative Normal NEGATIVE [facility] Comment on above: Performed By: #### U A #### [address] [address] Hemoglobin Ql (U) MODERATE(2+) Abnormal NEGATIVE [facility] Comment on above: Performed By: #### U A #### [address] [address] Ketones Ql (U) Negative Normal NEGATIVE [facility] Comment on above: Performed By: #### U A #### [address] [address] Leukocyte esterase Test strip Ql (U) TRACE Abnormal NEGATIVE [facility] Comment on above: Performed By: #### U A #### [address] [address] Nitrite Ql (U) Negative Normal NEGATIVE [facility] Comment on above: Performed By: #### U A #### [address] [address] pH (U) 7.0 [pH] Normal 5.0 - 8.0 [facility] Comment on above: Performed By: #### U A #### [address] [address] Protein Ql (U) Negative Normal NEGATIVE [facility] Comment on above: Performed By: #### U A #### [address] [address] Specific gravity (U) [Rel density] 1.015 Normal 1.005 - 1.035 [facility] Comment on above: Performed By: #### U A #### [address] [address] Urobilinogen (U) [Mass/Vol] mg/dL Normal 0.0 - 1.9 [facility] Comment on above: Performed By: #### U A #### [address] [address] URINALYSIS WITH CULTURE IF I NDICATEDon 11-26-2020 Appearance (U) Canceled [facility] Comment on above: Order Comment: TEST URINALYSIS WITH CULTURE IF INDICATED WAS CANCELLED, 11/26/2020 20:10PATIENT DISCHARGED. Performed By: #### U ARFX ####[place] [id number] ASCORBIC ACID Canceled [facility] Comment on above: Order Comment: TEST URINALYSIS WITH CULTURE IF INDICATED WAS CANCELLED, 11/26/2020 20:10PATIENT DISCHARGED. Result Comment: Conc entrations > = 20 mg/dL of ascorbic acid can be expected to cause strong interference in the reactions testing for glucose, nitrite and blood. It is recommended to discontinue Vitamin C administration and retest in 10 hours. Performed By: #### U ARFX ####[address] [address] Bilirubin Ql (U) Canceled [facility] Comment on above: Order Comment: TEST URINALYSIS WITH CULTURE IF INDICATED WAS CANCELLED, 11/26/2020 20:10PATIENT DISCHARGED. Performed By: #### U ARFX ####[address] [address] Color (U) Canceled [facility] Comment on above: Order Comment: TEST URINALYSIS WITH CULTURE IF INDICATED WAS CANCELLED, 11/26/2020 20:10PATIENT DISCHARGED. Performed By: #### U ARFX ####[address] [address] Glucose Ql (U) Canceled [facility] Comment on above: Order Comment: TEST URINALYSIS WITH CULTURE IF INDICATED WAS CANCELLED, 11/26/2020 20:10PATIENT DISCHARGED. Performed By: #### U ARFX ####[address] [address] Hemoglobin Ql (U) Canceled [facility] Comment on above: Order Comment: TEST URINALYSIS WITH CULTURE IF INDICATED WAS CANCELLED, 11/26/2020 20:10PATIENT DISCHARGED. Performed By: #### U ARFX ####[place] [id number] Ketones Ql (U) Canceled [facility] Comment on above: Order Comment: TEST URINALYSIS WITH CULTURE IF INDICATED WAS CANCELLED, 11/26/2020 20:10PATIENT DISCHARGED. Performed By: #### U ARFX ####[address] [address] Leukocyte esterase Test strip Ql (U) Canceled [facility] Comment on above: Order Comment: TEST URINALYSIS WITH CULTURE IF INDICATED WAS CANCELLED, 11/26/2020 20:10PATIENT DISCHARGED. Performed By: #### U ARFX ####[address] [address] Nitrite Ql (U) Canceled [facility] Comment on above: Order Comment: TEST URINALYSIS WITH CULTURE IF INDICATED WAS CANCELLED, 11/26/2020 20:10PATIENT DISCHARGED. Performed By: #### U ARFX ####[address] [address] pH Canceled [facility] [facility] Comment on above: Order Comment: TEST URINALYSIS WITH CULTURE IF INDICATED WAS CANCELLED, 11/26/2020 20:10PATIENT DISCHARGED. Performed By: #### U ARFX ####[address] [address] Protein Ql (U) Canceled [facility] Comment on above: Order Comment: TEST URINALYSIS WITH CULTURE IF INDICATED WAS CANCELLED, 11/26/2020 20:10PATIENT DISCHARGED. Performed By: #### U ARFX ####[address] [address] Specific gravity (U) [Rel density] Canceled Normal [facility] Comment on above: Order Comment: TEST URINALYSIS WITH CULTURE IF INDICATED WAS CANCELLED, 11/26/2020 20:10PATIENT DISCHARGED. Performed By: #### U ARFX ####[address] [address] UROBILINOGEN Canceled Normal [facility] Comment on above: Order Comment: TEST URINALYSIS WITH CULTURE IF INDICATED WAS CANCELLED, 11/26/2020 20:10PATIENT DISCHARGED. Performed By: #### U ARFX ####[address] [address] BASIC METABOLIC PANELon 02-01 Anion gap [Moles/Vol] 4.0 mmol/L Normal <=15.0 [facility] Comment on above: Performed By: #### 2 4323-8, 0-3 #### [facility] [address] [place] [address] [employer]ician - Mireille LEGGETTIA [id number] Calcium [Mass/Vol] 8.7 mg/dL Normal 8.5-10.1 [facility] Comment on above: Performed By: #### 2 432-8, 0-3 #### [facility] [address] [place] [address] [employer]ician - Mireille LEGGETTIA [id number] Chloride [Moles/Vol] 106 mmol/L Normal 98-107 [facility] Comment on above: Performed By: #### 2 4323-8, 0-3 #### [facility] [address] [place] [address] [employer]air Technician - Mireille LEGGETTIA [id number] CO2 [Moles/Vol] 28 mmol/L Normal 21-32 [facility] Comment on above: Performed By: #### 2 4323-8, 0-3 #### [facility] [address] [place] [address] [employer] Repair Technician - Mireille LEGGETTIA [id number] Creatinine [Mass/Vol] 0.72 mg/dL Normal 0.51-0.95 [facility] Comment on above: Performed By: #### 2 4323-8, 3039-3 #### [facility] [address] [place] [address] [employer] Tool Repair Technician - Mireille PENNINGTON [id number] GFR/1.73 sq M predicted among non-blacks MDRD (S/P/Bld) [Vol rate/Area] GLOMERULAR FILTRATION RATE INTERPRETATION~The eGFR is calculated using the MDRD equation.~This equation has been validated in patients with chronic kidney disease;~however, it underestimates the GFR in healthy patients with GFR's over 60 mL/min.~The equation is not valid in children under the age of 18.~NOTE: Criteria for Chronic Kidney Disease:~ ~1. Kidney damage for at least three months, as defined~by structural or functional abnormalities of the kidney,~with or without decreased glomerular filtration rate, manifested by either:~* Pathological abnormalities or~* Markers of Kidney damage, including abnormalities in~the composition of the blood or urine or abnormalities in imaging tests.~ ~2. GFR <60 mL/min/1.73 m squared for at least three months, with or without kidney damage.~ Normal [facility] Comment on above: Performed By: #### 2 4323-8, 3039-3 #### [facility] [address] [place] [address] [employer]air Technician - Mireille PENNINGTON [id number] GFR/1.73 sq M.predicted MDRD (S/P/Bld) [Vol rate/Area] mL/min/{1.73_m2} Normal >=59 [facility] Comment on above: Performed By: #### 2 4323-8, 3039-3 #### [facility] [address] [place] [address] [employer] Tool Repair Technician - Mireille PENNINGTON [id number] Glucose [Mass/Vol] 98 mg/dL Normal 74-106 [facility] Comment on above: Performed By: #### 2 4323-8, 3039-3 #### [facility] [address] [place] [address] [employer] Repair Technician - Mireille LEGGETTIA [id number] Potassium [Moles/Vol] 3.4 mmol/L Low 3.5-5.1 [facility] Comment on above: Performed By: #### 2 432-8, 0-3 #### [facility] [address] [place] [address] [employer] Tool Repair Technician - Mireille LEGGETTIA [id number] Sodium [Moles/Vol] 138 mmol/L Normal 136-145 [facility] Comment on above: Performed By: #### 2 432-8, 0-3 #### [facility] [address] [place] [address] [employer] Tool Rep[employer] Technician - Mireille PENNINGTON [id number] Urea nitrogen [Mass/Vol] 7 mg/dL Normal 7-17 [facility] Comment on above: Performed By: #### 2 432-8, 0-3 #### [facility] [address] [place] [address] [employer] Repair Technician - Mireille PENNINGTON [id number] CBC without DIFFERENTIALon 0 02-12-2020 Erythrocyte distribution width (RBC) [Entitic vol] 37.8 fL Normal 36.4-46.3 [facility] Comment on above: Performed By: #### 2 4323-8, 0-3 #### [facility] [address] [place] [address] [employer] Tool Repair Technician - Mireille LEGGETTIA [id number] Hematocrit (Bld) [Volume fraction] 36.8 % Low 37.0-47.0 [facility] Comment on above: Performed By: #### 2 432-8, 0-3 #### [facility] [address] [place] [address] [employer] Tool Repair Technician - Mireille PENNINGTON [id number] Hemoglobin (Bld) [Mass/Vol] 12.0 g/dL Normal 12.0-16.0 [facility] Comment on above: Performed By: #### 2 432-8, 0-3 #### [facility] [address] [place] [address] [employer] Tool Repair Technician - Mireille PENNINGTON [id number] MCH (RBC) [Entitic mass] 28.2 pg Normal 27.0-31.0 [facility] Comment on above: Performed By: #### 2 432-8, 0-3 #### [facility] [address] [facility]. [place] [address] [employer] Tool Repair Technician - Mireille PENNINGTON [id number] MCHC (RBC) [Mass/Vol] 32.6 g/dL Normal 32.0-36.0 [facility] Comment on above: Performed By: #### 2 432-8, 0-3 #### [place] [address] [employer] Repair Technician - Mireille PENNINGTON [id number] MCV (RBC) [Entitic vol] 86.6 fL Normal 80.0-100.0 [facility] Comment on above: Performed By: #### 2 432-8, 0-3 #### [place] [address] [employer] Rep[employer] Technician - Mireille PENNINGTON [id number] Platelet mean volume (Bld) [Entitic vol] 10.4 fL Normal 9.0-13.0 [facility] Comment on above: Performed By: #### 2 432-8, 0-3 #### [place] [address] [employer] Repair Technician - Mireille PENNINGTON [id number] Platelets (Bld) [#/Vol] 245 10*3/uL Normal 130-400 [facility] Comment on above: Performed By: #### 2 432-8, 0-3 #### [facility] [address] [facility]. [place] [address] [employer] Repair Technician - Mireille PENNINGTON [id number] RBC (Bld) [#/Vol] 4.25 10*6/uL Normal 4.00-6.30 [facility] Comment on above: Performed By: #### 2 432-8, 0-3 #### [facility] [address] [place] [address] [employer] Tool Repair Technician - Mireille PENNINGTON [id number] WBC (Bld) [#/Vol] 7.99 10*3/uL Normal 4.80-10.80 [facility] Comment on above: Performed By: #### 2 4323-8, 3040-3 #### [facility] [address] [place] [address] [employer] Tool Repair Technician - Mireille PENNINGTON [id number] MAGNESIUMon 02-12-2020 Magnesium [Mass/Vol] 2.2 mg/dL Normal 1.6-2.6 [facility] Comment on above: Performed By: #### 2 4323-8, 3039-3 #### [facility] [address] [place] [address] [employer] Tool Repair Technician - Mireille PENNINGTON [id number] MRI BRAIN WITH CONTRASTon MRI BRAIN WITH CONTRAST EXAM: MRI BRAIN without CONTRAST HISTORY: Seizure COMPARISON: None. TECHNIQUE: Multiplanar, multisequence imaging of the brain without contrast. FINDINGS: No diffusion or gradient signal abnormality. Midline structures are satisfactory. The craniocervical junction is within limits of normal. The ventricles and sulci are of normal size, shape and position. Mastoid air cells are grossly clear. There is bilateral maxillary sinus mucosal thickening. No significant brain parenchymal abnormality. No evidence of mesial temporal sclerosis. IMPRESSION: No acute intracranial abnormality. Normal [facility] CBC with DIFFERENTIALon 02-01 Basophils (Bld) [#/Vol] 0.01 10*3/uL Normal <=0.70 [facility] Comment on above: Performed By: #### 2 4323-8, 3040-3 #### [facility] [address] [place] [address] [employer] Tool Repair Technician - Mireille PENNINGTON [id number] Basophils/100 WBC (Bld) 0.1 % Normal <=2.0 [facility] Comment on above: Performed By: #### 2 4323-8, 3040-3 #### [facility] [address] [place] [address] [employer] Tool Repair Technician - Mireille LEGGETTIA [id number] Eosinophils (Bld) [#/Vol] 0.05 10*3/uL Normal <=0.70 [facility] Comment on above: Performed By: #### 2 4323-02, 3039-3 #### [facility] [address] [place] [address] [employer] Tool Repair Technician - Mireille LEGGETTIA [id number] Eosinophils/100 WBC (Bld) 0.5 % Normal <=10.0 [facility] Comment on above: Performed By: #### 2 4323-02, 3039-3 #### [place] [address] [employer] Tool Repair Technician - Mireille PENNINGTON [id number] Erythrocyte distribution width (RBC) [Entitic vol] 37.9 fL Normal 36.4-46.3 [facility] Comment on above: Performed By: #### 2 4323-02, 3039-3 #### [place] [address] [employer] Tool Repair Technician - Mireille PENNINGTON [id number] Hematocrit (Bld) [Volume fraction] 35.7 % Low 37.0-47.0 [facility] Comment on above: Performed By: #### 2 4323-02, 3039-3 #### [place] [address] [employer] Tool Repair Technician - Mireille PENNINGTON [id number] Hemoglobin (Bld) [Mass/Vol] 11.9 g/dL Low 12.0-16.0 [facility] Comment on above: Performed By: #### 2 4323-02, 3039-3 #### [facility] [address] [place] [address]. [place] [address] [employer] Tool Repair Technician - Mireille PENNINGTON [id number] Immature granulocytes (Bld) [#/Vol] 0.04 10*3/uL Normal <=0.10 [facility] Comment on above: Performed By: #### 2 4323-02, 3039-3 #### [address] [place] [address] [employer] Tool Repair Technician - Mireille LEGGETTIA [id number] Immature granulocytes/100 WBC (Bld) 0.40 % Normal <=1.50 [facility] Comment on above: Performed By: #### 2 4323-02, 3039-3 #### [facility] [address] [facility] [place] [address] [employer] Tool Repair Technician - Mireille LEGGETTIA [id number] Lymphocytes (Bld) [#/Vol] 0.64 10*3/uL Low 1.20-3.40 [facility] Comment on above: Performed By: #### 2 4323-02, 3039-3 #### [address] [place] [address] [employer] Tool Repair Technician - Mireille LEGGETTIA [id number] Lymphocytes/100 WBC (Bld) 6.3 % Low 20.0-40.0 [facility] Comment on above: Performed By: #### 2 4323-02, 3039-3 #### [address] [place] [address] [employer] Tool Repair Technician - Mireille PENNINGTON [id number] MCH (RBC) [Entitic mass] 28.7 pg Normal 27.0-31.0 [facility] Comment on above: Performed By: #### 2 4323-02, 3039-3 #### [address] [place] [address] [employer] Tool Repair Technician - Mireille LEGGETTIA [id number] MCHC (RBC) [Mass/Vol] 33.3 g/dL Normal 32.0-36.0 [facility] Comment on above: Performed By: #### 2 4323-02, 3039-3 #### [address] [place] [address] [employer] Tool Repair Technician - Mireille LEGGETTIA [id number] MCV (RBC) [Entitic vol] 86.2 fL Normal 80.0-100.0 [facility] Comment on above: Performed By: #### 2 4323-02, 3039-3 #### [address] [place], [place] [address] [employer] Tool Rep[employer] Technician - Mireille LEGGETTIA [id number] Monocytes (Bld) [#/Vol] 0.14 10*3/uL Normal 0.10-0.60 [facility] Comment on above: Performed By: #### 2 432-8, 0-3 #### [place] [address] [employer] Tool Repair Technician - Mireille Garrido CLIA [id number] Monocytes/100 WBC (Bld) 1.4 % Normal <=8.0 [facility] Comment on above: Performed By: #### 2 8, 3039-3 #### [place] [address] [employer] Rep[employer] Technician - Mireille LEGGETTIA [id number] Neutrophils (Bld) [#/Vol] 9.20 10*3/uL High 1.40-6.50 [facility] Comment on above: Performed By: #### 2 8, 3039-3 #### [place] [address] [employer] Rep[employer] Technician - Mireille LEGGETTIA [id number] Neutrophils/100 WBC (Bld) 91.3 % High 50.0-70.0 [facility] Comment on above: Performed By: #### 2 43209-08, 3039-3 #### [place] [address] [employer] Rep[employer] Technician - Mireille LEGGETTIA [id number] Nucleated RBC (Bld) [#/Vol] 0.00 10*3/uL Normal <=0.10 [facility] Comment on above: Performed By: #### 2 432-8, 0-3 #### [place] [address] [employer] Rep[employer] Technician - Mireille LEGGETTIA [id number] Platelet mean volume (Bld) [Entitic vol] 10.1 fL Normal 9.0-13.0 [facility] Comment on above: Performed By: #### 2 4328, 3040-3 #### [facility] [address] [place] [address] [employer] Tool Repair Technician - Mireille PENNINGTON [id number] Platelets (Bld) [#/Vol] 208 10*3/uL Normal 130-400 [facility] Comment on above: Performed By: #### 2 4323-8, 0-3 #### [facility] [address] [place] [address] [employer] Tool Repair Technician - Mireille PENNINGTON [id number] RBC (Bld) [#/Vol] 4.14 10*6/uL Normal 4.00-6.30 [facility] Comment on above: Performed By: #### 2 4323-8, 3039-3 #### [place] [address] [place] [address] [employer] Tool Repair Technician - Mireille PENNINGTON [id number] WBC (Bld) [#/Vol] 10.08 10*3/uL Normal 4.80-10.80 [facility] Comment on above: Performed By: #### 2 4323-8, 3039-3 #### [facility] [address] [place] [address] [employer] Tool Repair Technician - Mireille PENNINGTON [id number] COMPREHENSIVE METABOLIC PANE Dony 02-11-2020 Albumin [Mass/Vol] 3.7 g/dL Normal 3.4-5.0 [facility] Comment on above: Performed By: #### 2 4323-8, 3039-3 #### [facility] [address] [place] [address] [employer] Tool Repair Technician - Mireille PENNINGTON [id number] ALP [Catalytic activity/Vol] 60 U/L Normal 50-136 [facility] Comment on above: Performed By: #### 2 4323-8, 0-3 #### [facility] [address] [place] [address] [employer] Tool Repair Technician - Mireille PENNINGTON [id number] ALT [Catalytic activity/Vol] 81 U/L High 14-59 [facility] Comment on above: Performed By: #### 2 432-8, 3039-3 #### [facility] [address] [place] [address] [employer] Tool Repair Technician - Mireille Garrido CLIA [id number] Anion gap [Moles/Vol] 4.0 mmol/L Normal <=15.0 [facility] Comment on above: Performed By: #### 2 4322-8, 3039-3 #### [facility] [address] [place] [address] [employer] Tool Repair Technician - Mireille Garrido CLIA [id number] AST [Catalytic activity/Vol] 84 U/L High 15-37 [facility] Comment on above: Performed By: #### 2 8, 3039-3 #### [facility] [address] [place] [address] [employer] Tool Repair Technician - Mireille LEGGETTIA [id number] Bilirubin [Mass/Vol] 0.6 mg/dL Normal 0.2-1.0 [facility] Comment on above: Performed By: #### 2 4323-02, 3039-3 #### [facility] [address] [place] [address] [employer] Tool Repair Technician - Mireille LEGGETTIA [id number] Calcium [Mass/Vol] 8.5 mg/dL Normal 8.5-10.1 [facility] Comment on above: Performed By: #### 2 4328, 3039-3 #### [facility] [address] [place] [address] [employer] Tool Repair Technician - Mireille Garrido CLIA [id number] Chloride [Moles/Vol] 106 mmol/L Normal 98-107 [facility] Comment on above: Performed By: #### 2 432-8, 0-3 #### [facility] [address] [place] [address] [employer] Tool Repair Technician - Mireille Garrido CLIA [id number] CO2 [Moles/Vol] 27 mmol/L Normal 21-32 [facility] Comment on above: Performed By: #### 2 432-8, 3039-3 #### [facility] [address] [place] [address] [employer] Tool Repair Technician - Mireille PENNINGTON [id number] Creatinine [Mass/Vol] 0.68 mg/dL Normal 0.51-0.95 [facility] Comment on above: Performed By: #### 2 4323-8, 3039-3 #### [facility] [address] [place] [address] [employer] Tool Repair Technician - Mireille PENNINGTON [id number] GFR/1.73 sq M predicted among non-blacks MDRD (S/P/Bld) [Vol rate/Area] GLOMERULAR FILTRATION RATE INTERPRETATION~The eGFR is calculated using the MDRD equation.~This equation has been validated in patients with chronic kidney disease;~however, it underestimates the GFR in healthy patients with GFR's over 60 mL/min.~The equation is not valid in children under the age of 18.~NOTE: Criteria for Chronic Kidney Disease:~ ~1. Kidney damage for at least three months, as defined~by structural or functional abnormalities of the kidney,~with or without decreased glomerular filtration rate, manifested by either:~* Pathological abnormalities or~* Markers of Kidney damage, including abnormalities in~the composition of the blood or urine or abnormalities in imaging tests.~ ~2. GFR <60 mL/min/1.73 m squared for at least three months, with or without kidney damage.~ Normal [facility] Comment on above: Performed By: #### 2 4323-8, 3039-3 #### [facility] [address] [place] [address] [employer] Tool Repair Technician - Mireille PENNINGTON [id number] GFR/1.73 sq M.predicted MDRD (S/P/Bld) [Vol rate/Area] mL/min/{1.73_m2} Normal >=59 [facility] Comment on above: Performed By: #### 2 4323-8, 3039-3 #### [facility] [address] [place] [address] [employer] Tool Repair Technician - Mireille PENNINGTON [id number] Glucose [Mass/Vol] 116 mg/dL High 74-106 [facility] Comment on above: Performed By: #### 2 432-8, 0-3 #### [facility] [address] [place] [address] [employer] Tool Repair Technician - Mireille LEGGETTIA [id number] Potassium [Moles/Vol] 4.2 mmol/L Normal 3.5-5.1 [facility] Comment on above: Performed By: #### 2 432-8, 0-3 #### [facility] [address] [place] [address] [employer] Tool Repair Technician - Mireille LEGGETTIA [id number] Protein [Mass/Vol] 7.1 g/dL Normal 6.4-8.2 [facility] Comment on above: Performed By: #### 2 432-8, 0-3 #### [facility] [address] [place] [address] [employer] Tool Repair Technician - Mireille LEGGETTIA [id number] Sodium [Moles/Vol] 137 mmol/L Normal 136-145 [facility] Comment on above: Performed By: #### 2 432-8, 0-3 #### [facility] [address] [place] [address] [employer] Tool Repair Technician - Mireille PENNINGTON [id number] Urea nitrogen [Mass/Vol] 7 mg/dL Normal 7-17 [facility] Comment on above: Performed By: #### 2 432-8, 0-3 #### [facility] [address] [place] [address] [employer] Tool Repair Technician - Mireille PENNINGTON [id number] MAGNESIUMon 02-11-2020 Magnesium [Mass/Vol] 1.9 mg/dL Normal 1.6-2.6 [facility] Comment on above: Performed By: #### 2 4323-8, 3040-3 #### [facility] [address] [place] [address] [employer] Tool Repair Technician - Mireille PENNINGTON [id number] URINE QUALITATIVEo n 02-11-2020 Beta HCG ( test) Ql (U) Negative Normal NEGATIVE [facility] Comment on above: Performed By: #### 2 432-8, 3039-3 #### [facility] [address] [place] [address] [employer] Tool Repair Technician - Mireille LEGGETTIA [id number] CBC with DIFFERENTIALon Basophils (Bld) [#/Vol] 0.04 10*3/uL Normal <=0.70 [facility] Comment on above: Performed By: #### 2 432-8, 3039-3 #### [facility] [address] [place] [address] [employer] Tool Repair Technician - Mireille LEGGETTIA [id number] Basophils/100 WBC (Bld) 0.6 % Normal <=2.0 [facility] Comment on above: Performed By: #### 2 4328, 3039-3 #### [place] [address] [place] [address] [employer] Tool Repair Technician - Mireille LEGGETTIA [id number] Eosinophils (Bld) [#/Vol] 0.26 10*3/uL Normal <=0.70 [facility] Comment on above: Performed By: #### 2 432-8, 3039-3 #### [facility] [address] Director - Mireille LEGGETTIA [id number] Eosinophils/100 WBC (Bld) 3.9 % Normal <=10.0 [facility] Comment on above: Performed By: #### 2 4328, 3039-3 #### [facility] [address] [place] [address] [employer] Tool Repair Technician - Mireille LEGGETTIA [id number] Erythrocyte distribution width (RBC) [Entitic vol] 37.1 fL Normal 36.4-46.3 [facility] Comment on above: Performed By: #### 2 432-8, 3039-3 #### [facility] [address] [place] [address] [employer] Tool Repair Technician - Mireille LEGGETTIA [id number] Hematocrit (Bld) [Volume fraction] 38.9 % Normal 37.0-47.0 [facility] Comment on above: Performed By: #### 2 432-8, 3039-3 #### [place] [address] [facility]. [place] [address] [employer] Tool Repair Technician - Mireille LEGGETTIA [id number] Hemoglobin (Bld) [Mass/Vol] 13.1 g/dL Normal 12.0-16.0 [facility] Comment on above: Performed By: #### 2 8, 3039-3 #### [address] [place] [address] [employer] Tool Repair Technician - Mireille LEGGETTIA [id number] Immature granulocytes (Bld) [#/Vol] 0.01 10*3/uL Normal <=0.10 [facility] Comment on above: Performed By: #### 2 4328, 3039-3 #### [place] [address] [employer] Technician - Mireille Garrido CLIA [id number] Immature granulocytes/100 WBC (Bld) 0.20 % Normal <=1.50 [facility] Comment on above: Performed By: #### 2 4323-02, 3039-3 #### [place] [address] [employer] Technician - Mireille LEGGETTIA [id number] Lymphocytes (Bld) [#/Vol] 2.32 10*3/uL Normal 1.20-3.40 [facility] Comment on above: Performed By: #### 2 43209-08, 3039-3 #### [place] [address] [employer] Technician - Mireille Garrido CLIA [id number] Lymphocytes/100 WBC (Bld) 34.8 % Normal 20.0-40.0 [facility] Comment on above: Performed By: #### 2 4328, 3039-3 #### [address] [place] [address] [employer] Tool Repair Technician - Mireille LEGGETTIA [id number] MCH (RBC) [Entitic mass] 28.7 pg Normal 27.0-31.0 [facility] Comment on above: Performed By: #### 2 432-8, 0-3 #### [place] [address] [facility]. [place] [address] [employer] Repair Technician - Mireille PENNINGTON [id number] MCHC (RBC) [Mass/Vol] 33.7 g/dL Normal 32.0-36.0 [facility] Comment on above: Performed By: #### 2 4322-8, 3039-3 #### [address] [place] [address] [employer] Tool Repair Technician - Mireille LEGGETTIA [id number] MCV (RBC) [Entitic vol] 85.1 fL Normal 80.0-100.0 [facility] Comment on above: Performed By: #### 2 4322-8, 3039-3 #### [address] [place] [address] [employer] Tool Repair Technician - Mireille LEGGETTIA [id number] Monocytes (Bld) [#/Vol] 0.35 10*3/uL Normal 0.10-0.60 [facility] Comment on above: Performed By: #### 2 4328, 3039-3 #### [place] [address] [employer] Technician - Mireille LEGGETTIA [id number] Monocytes/100 WBC (Bld) 5.3 % Normal <=8.0 [facility] Comment on above: Performed By: #### 2 4328, 3039-3 #### [place] [address] [employer] Technician - Mireille LEGGETTIA [id number] Neutrophils (Bld) [#/Vol] 3.68 10*3/uL Normal 1.40-6.50 [facility] Comment on above: Performed By: #### 2 432-8, 0-3 #### [address] [place] [address] [employer] Tool Repair Technician - Mireille LEGGETTIA [id number] Neutrophils/100 WBC (Bld) 55.2 % Normal 50.0-70.0 [facility] Comment on above: Performed By: #### 2 4323-8, 0-3 #### [facility] [address] [place] [address] [employer] Tool Repair Technician - Mireille LEGGETTIA [id number] Nucleated RBC (Bld) [#/Vol] 0.00 10*3/uL Normal <=0.10 [facility] Comment on above: Performed By: #### 2 432-8, 0-3 #### [facility] [address] [place] [address] [employer] Rep[employer] Technician - Mireille LEGGETTIA [id number] Platelet mean volume (Bld) [Entitic vol] 9.9 fL Normal 9.0-13.0 [facility] Comment on above: Performed By: #### 2 432-8, 0-3 #### [place] [address] [place] [address] [employer] - Mireille LEGGETTIA [id number] Platelets (Bld) [#/Vol] 259 10*3/uL Normal 130-400 [facility] Comment on above: Performed By: #### 2 432-8, 0-3 #### [facility] [address] [place] [address] [employer]ician - Mireille LEGGETTIA [id number] RBC (Bld) [#/Vol] 4.57 10*6/uL Normal 4.00-6.30 [facility] Comment on above: Performed By: #### 2 432-8, 0-3 #### [facility] [address] [place] [address] [employer]ician - Mireille LEGGETTIA [id number] WBC (Bld) [#/Vol] 6.66 10*3/uL Normal 4.80-10.80 [facility] Comment on above: Performed By: #### 2 4323-8, 0-3 #### [facility] [address] [place] [address] [employer]ician - Mireille LEGGETTIA [id number] VIRAL RESPIRATORY PANELon Adenovirus NOT DETECTED Normal NOT DETECTED [facility] Comment on above: Performed By: #### 2 4323-8, 3040-3 #### [facility] [address] [place] [address] [employer] Technician - Mireille LEGGETTIA [id number] B parapertussis NOT DETECTED Normal NOT DETECTED [facility] Comment on above: Performed By: #### 2 3-8, 0-3 #### [facility] [address] [place] [address] [employer] Rep[employer] Technician - Mireillejurgen LEGGETTIA [id number] B pertussis NOT DETECTED Normal NOT DETECTED [facility] Comment on above: Performed By: #### 2 3-8, 0-3 #### [facility] [address] [place] [address] [employer] Technician - Mireille LEGGETTIA [id number] Chlamydia pneumoniae NOT DETECTED Normal NOT DETECTED [facility] Comment on above: Performed By: #### 2 4322-8, 0-3 #### [facility] [address] [place] [address] [employer] Technician - Mireille LEGGETTIA [id number] CORONAVIRUS 19 NOT DETECTED Normal NOT DETECTED [facility] Comment on above: Performed By: #### 2 3-8, 0-3 #### [facility] [address] [place] [address] [employer] Technician - Mireille Garrido CLIA [id number] CORONAVIRUS [id number] NOT DETECTED Normal NOT DETECTED [facility] Comment on above: Performed By: #### 2 3-8, 3040-3 #### [facility] [address] [place] [address] [employer] Technician - Mireille Garrido CLIA [id number] CORONAVIRUS HKU1 NOT DETECTED Normal NOT DETECTED [facility] Comment on above: Performed By: #### 2 3-8, 3040-3 #### [facility] [address] [place] [address] [employer] Technician - Mireille LEGGETTIA [id number] CORONAVIRUS NL63 NOT DETECTED Normal NOT DETECTED [facility] Comment on above: Performed By: #### 2 3-8, 3040-3 #### [facility] [address] [place] [address] [employer] Technician - Mireille LEGGETTIA [id number] CORONAVIRUS OC43 NOT DETECTED Normal NOT DETECTED [facility] Comment on above: Performed By: #### 2 3-8, 0-3 #### [facility] [address] [place] [address] [employer] Technician - Mireille LEGGETTIA [id number] HPCR TESTING PERFORMED BY PCR METHODOLOGY Normal [facility] Comment on above: Performed By: #### 2 3-8, 0-3 #### [facility] [address] [place] [address] [employer] Technician - Mireille LEGGETTIA [id number] Human Metapneumoviru NOT DETECTED Normal NOT DETECTED [facility] Comment on above: Performed By: #### 2 3-8, 0-3 #### [facility] [address] [place] [address] [employer] Rep[employer] Technician - Mireille LEGGETTIA [id number] Influenza A NOT DETECTED Normal NOT DETECTED [facility] Comment on above: Performed By: #### 2 3-8, 0-3 #### [facility] [address] [place] [address] [employer] Technician - Mireille Garrido CLIA [id number] Influenza A / H1 NOT DETECTED Normal NOT DETECTED [facility] Comment on above: Performed By: #### 2 3-8, 3040-3 #### [facility] [address] [place] [address] [employer] Technician - Mireille LEGGETTIA [id number] Influenza A / H3 NOT DETECTED Normal NOT DETECTED [facility] Comment on above: Performed By: #### 2 4323-8, 3040-3 #### [facility] [address] [place] [address] [employer] Tool Repair Technician - Mireille LEGGETTIA [id number] Influenza A H1-2009 NOT DETECTED Normal NOT DETECTED [facility] Comment on above: Performed By: #### 2 4322-8, 0-3 #### [facility] [address] [place] [address] [employer] Tool Repair Technician - Mireille LEGGETTIA [id number] Influenza B NOT DETECTED Normal NOT DETECTED [facility] Comment on above: Performed By: #### 2 4322-8, 0-3 #### [facility] [address] [place] [address] [employer] Rep[employer] Technician - Mireille LEGGETTIA [id number] Mycoplasma pneumonia NOT DETECTED Normal NOT DETECTED [facility] Comment on above: Performed By: #### 2 4322-8, 0-3 #### [facility] [address] [place] [address] [employer] Tool Repair Technician - Mireille LEGGETTIA [id number] Parainfluenza 1 NOT DETECTED Normal NOT DETECTED [facility] Comment on above: Performed By: #### 2 4322-8, 0-3 #### [facility] [address] [place] [address] [employer] Tool Repair Technician - Mireille LEGGETTIA [id number] Parainfluenza 2 NOT DETECTED Normal NOT DETECTED [facility] Comment on above: Performed By: #### 2 4322-8, 0-3 #### [facility] [address] [place] [address] [employer] Tool Repair Technician - Mireille LEGGETTIA [id number] Parainfluenza 3 NOT DETECTED Normal NOT DETECTED [facility] Comment on above: Performed By: #### 2 4322-8, 0-3 #### [facility] [address] [place] [address] [employer] Repair Technician - Mireille LEGGETTIA [id number] Parainfluenza 4 NOT DETECTED Normal NOT DETECTED [facility] Comment on above: Performed By: #### 2 3-8, 0-3 #### [facility] [address] [place] [address] [employer] Tool Repair Technician - Mireille LEGGETTIA [id number] Rhinovirus NOT DETECTED Normal NOT DETECTED [facility] Comment on above: Performed By: #### 2 4323-8, 3040-3 #### [facility] [address] [place], [place] [address] [employer] Tool Repair Technician - [facility] CLIA [id number] RSV NOT DETECTED Normal NOT DETECTED [facility] Comment on above: Performed By: #### 2 4323-8, 3040-3 #### [facility] [address] [place], [place] [address] [employer] Tool Repair Technician [facility] [id number] ULTRASOUND PELVIS WITH TRANS VAGINAL VIEWSon 12-21-2019 ULTRASOUND PELVIS WITH TRANSVAGINAL VIEWS PROCEDURE: ULTRASOUND PELVIS WITH TRANSVAGINAL VIEWS, 12/21/2019 1:09 PM EDT CLINICAL INDICATIONS: Pelvic and perineal pain, excessive vaginal bleeding, previous ovarian cystectomy, personal history of endometriosis 4 para 4 COMPARISON: 10/17/2019. TECHNIQUE: Transabdominal and transvaginal pelvic sonogram with little scale, color, and spectral assessment. FINDINGS: Uterus: 8.4 x 4.5 x 6.0 cm. Uterus is retroverted. Nabothian paracervical cysts are seen. Endometrial echo complex 0.7 cm. There is prominent parametrial vascularity. Right ovary: 3.5 x 1.9 x 3.5 cm, estimated volume of 12 mL. Multiple anechoic ovarian cysts measure up to 1.4 x 0.9 x 1.2 cm. Left ovary: 2.8 x 1.7 x 2.3 cm, estimated volume of 6 mL. Multiple subcentimeter ovarian cysts are noted. There is increased pelvic vascularity, left greater than right. DUPLEX PELVIC VASCULATURE: There is intact flow within the ovarian tissue bilaterally by color-flow assessment. Arterial and venous spectral tracing is identified from within. Right resistive index 0.49, left 0.47. IMPRESSION: 1. Retroverted uterus. 2. Nabothian paracervical cyst. 3. Anechoic right ovarian cyst measuring up to 1.4 cm. Benign functional cyst is favored. This does not meet criteria for further characterization or followup. 4. Normal sonographic morphology of the left ovary. 5. Increased pelvic vascularity, left greater than right. Pelvic varices considered. Normal [facility] CBC without DIFFERENTIALon 0 10-31-2019 Erythrocyte distribution width (RBC) [Entitic vol] 37.2 fL Normal 36.4-46.3 [facility] Comment on above: Performed By: #### 2 4322-8, 3039-3 #### [facility] [address] [facility] [place] [address] [employer] Tool Repair Technician - Mireille LEGGETTIA [id number] Hematocrit (Bld) [Volume fraction] 36.9 % Low 37.0-47.0 [facility] Comment on above: Performed By: #### 2 8, 3039-3 #### [facility] [address] [facility] [place] [address] [employer]air Technician - Mireille LEGGETTIA [id number] Hemoglobin (Bld) [Mass/Vol] 12.8 g/dL Normal 12.0-16.0 [facility] Comment on above: Performed By: #### 2 4323-02, 3039-3 #### [facility] [address] [facility] [place] [address] [employer] Repair Technician - Mireille LEGGETTIA [id number] MCH (RBC) [Entitic mass] 29.0 pg Normal 27.0-31.0 [facility] Comment on above: Performed By: #### 2 4323-02, 3039-3 #### [facility] [address] [facility] [place] [address] [employer] Tool Repair Technician - Mireille LEGGETTIA [id number] MCHC (RBC) [Mass/Vol] 34.7 g/dL Normal 32.0-36.0 [facility] Comment on above: Performed By: #### 2 8, 3039-3 #### [facility] [address] [facility] [place] [address] [employer] Repair Technician - Mireille LEGGETTIA [id number] MCV (RBC) [Entitic vol] 83.5 fL Normal 80.0-100.0 [facility] Comment on above: Performed By: #### 2 8, 3040-3 #### [facility] [address] [place] [address] [employer] Tool Repair Technician - Mireille PENNINGTON [id number] Platelet mean volume (Bld) [Entitic vol] 9.7 fL Normal 9.0-13.0 [facility] Comment on above: Performed By: #### 2 4323-8, 0-3 #### [facility] [address] [place] [address] [employer] Tool Repair Technician - Mireille PENNINGTON [id number] Platelets (Bld) [#/Vol] 254 10*3/uL Normal 130-400 [facility] Comment on above: Performed By: #### 2 4323-8, 3039-3 #### [facility] [address] [place] [address] [employer] Tool Repair Technician - Mireille PENNINGTON [id number] RBC (Bld) [#/Vol] 4.42 10*6/uL Normal 4.00-6.30 [facility] Comment on above: Performed By: #### 2 4323-8, 0-3 #### [facility] [address] [place] [address] [employer] Tool Repair Technician - Mireille PENNINGTON [id number] WBC (Bld) [#/Vol] 6.10 10*3/uL Normal 4.80-10.80 [facility] Comment on above: Performed By: #### 2 4323-8, 0-3 #### [facility] [address] [place] [address] [employer] Tool Repair Technician - Mireille PENNINGTON [id number] FREE T4on 10-31-2019 Free T4 [Mass/Vol] 1.04 ng/dL Normal 0.76-1.46 [facility] Comment on above: Performed By: #### 2 4323-8, 0-3 #### [facility] [address] [place] [address] [employer] Tool Repair Technician - Mireille PENNINGTON [id number] TSH 3RD GENERATIONon 020 TSH Qn 0.548 uIU/mL Normal 0.358-3.740 [facility] Comment on above: Performed By: #### 2 4323-8, 3040-3 #### [facility] [address] [place] [address] Power Tool Repair Technician - Mireille Garrido CLIA [id number] CHLAM GONORRHEA and TRICH NA Aon 10-27-2019 26861-9 Negative Normal Negative [facility] Comment on above: Performed By: #### 2 4323-8, 3040-3 #### [facility] [address] [place] [address] Power Tool Repair Technician [facility] CLIA [id number] C. trachomatis rRNA SHANE+probe Ql (Unsp spec) Negative Normal Negative [facility] Comment on above: Performed By: #### 2 4323-8, 3040-3 #### [facility] [address] [place] [address] Power Tool Repair Technician - Mireille Garrido CLIA [id number] N. gonorrhoeae rRNA SHANE+probe Ql (Unsp spec) Negative Normal Negative [facility] Comment on above: Performed By: #### 2 4323-8, 3040-3 #### [facility] [address] [place] [address] Power Tool Repair Technician - [facility] CLIA [id number] ULTRASOUND PELVIS WITH TRANS VAGINAL VIEWSon 10-17-2019 ULTRASOUND PELVIS WITH TRANSVAGINAL VIEWS EXAM: ULTRASOUND PELVIS WITH TRANSVAGINAL VIEWS 10/17/2019 2:31 PM EDT HISTORY: Cyst of left ovary. COMPARISON: 07/27/2019. TECHNIQUE: Transabdominal and transvaginal sonographic evaluation of the pelvis was performed. FINDINGS: Uterus: 8.6 x 4.8 x 4.7 cm. The endometrial stripe measures 16 mm. Homogeneous in echotexture. Right ovary: 4.1 x 2.0 x 3.6 cm. Normal in echotexture. Left ovary: 4.4 x 2.3 x 3.6 cm. Normal in echotexture. Color Doppler and spectral evaluation reveals blood flow in both ovaries. A small amount of free fluid is noted in the cul-de-sac and right adnexa. This is likely physiologic. IMPRESSION: No significant abnormalities. Normal [facility] FREE T4on 08-28-2019 Free T4 [Mass/Vol] 1.02 ng/dL Normal 0.76-1.46 [facility] Comment on above: Performed By: #### 2 4323-8, 3040-3 #### [facility] [address] [place] [address] Power Tool Repair Technician - Mireille PENNINGTON [id number] TSH 3RD GENERATIONon 020 TSH Qn 0.507 uIU/mL Normal 0.358-3.740 [facility] Comment on above: Performed By: #### 2 4323-8, 3040-3 #### [facility] [address] [place] [address] Power Tool Repair Technician - Mireille PENNINGTON [id number] THIN PREP with HPV REFLEX C Uon 08-08-2019 26147-2 . Normal [facility] Comment on above: Performed By: #### 2 4323-8, 0-3 #### [facility] [address] [place] [address] Power Tool Repair Technician - Mireille PENNINGTON [id number] Senior Program Analyst Cyto stain Nom (Cvx/Vag) [ID] Comment Normal [facility] Comment on above: Result Comment: Demetrius Russell, Hiv Prevention Specialist Performed By: #### 2 4323-8, 3040-3 #### [facility] [address] [place] [address] Power Tool Repair Technician - Mireille PENNINGTON [id number] Cytology report Cyto stain Doc (Cvx/Vag) Comment Normal [facility] Comment on above: Result Comment: NEGA TIVE FOR INTRAEPITHELIAL LESION OR MALIGNANCY. CELLULAR CHANGES ASSOCIATED WITH INFLAMMATION ARE PRESENT. Performed By: #### 2 4323-8, 3040-3 #### [facility] [address] [place] [address] Power Tool Repair Technician - Mireille PENNINGTON [id number] Cytology report Cyto stain.thin prep Doc (Cvx/Vag) Comment Normal [facility] Comment on above: Result Comment: This liquid based ThinPrep(R) pap test was screened with the use of an image guided system. Performed By: #### 2 4323-8, 3039-3 #### [facility] [address] [place] [address] Power Tool Repair Technician - Mireille PENNINGTON [id number] Note: Comment Normal [facility] Comment on above: Result Comment: The Pap smear is a screening test designed to aid in the detection of premalignant and malignant conditions of the uterine cervix. It is not a diagnostic procedure and should not be used as the sole means of detecting cervical cancer. Both false-positive and false-negative reports do occur. . Performed By: #### 2 43209-08, 3039-3 #### [facility] [address] [place] [address] Power Tool Repair Technician - [facility] [id number] Statement of adequacy Cyto stain (Cvx/Vag) [Interp] Comment Normal [facility] Comment on above: Result Comment: Sati sfactory for evaluation. Endocervical and/or squamous metaplastic cells (endocervical component) are present. Performed By: #### 2 4328, 3039-3 #### [facility] [address] [place] [address] Power Tool Repair Technician - [facility] CenterG[facility] MOISES [id number] . Comment Normal [facility] Comment on above: Result Comment: The HPV DNA reflex criteria were not met with this specimen result therefore, no HPV testing was performed. . Performed By: #### 2 43238, 3039-3 #### [facility] [address] [place] [address] [employer] Tool Repair Technician [facility] [id number] CHLAMYDIA and GONORRHEA NAAo n 08-07-2019 C. trachomatis rRNA SHANE+probe Ql (Unsp spec) Negative Normal Negative [facility] Comment on above: Performed By: #### 2 432-8, 3039-3 #### [facility] [address] [place] [address] Power Tool Repair Technician - Mireille PENNINGTON [id number] N. gonorrhoeae rRNA SHANE+probe Ql (Unsp spec) Negative Normal Negative [facility] Comment on above: Performed By: #### 2 4323-8, 3040-3 #### [facility] [address] [place] [address] Power Tool Repair Technician - Mireille LEGGETTIA [id number] CBC with DIFFERENTIALon 02-0 -2020 Basophils (Bld) [#/Vol] 0.05 10*3/uL Normal <=0.70 [facility] Comment on above: Performed By: #### 5 7021-8 #### [place] [address] [place] [address] Power Tool Repair Technician - Mireille LEGGETTIA [id number] Basophils/100 WBC (Bld) 0.7 % Normal <=2.0 [facility] Comment on above: Performed By: #### 5 7021-8 #### [address] [place] [address] Power Tool Repair Technician - Mireille LEGGETTIA [id number] Eosinophils (Bld) [#/Vol] 0.28 10*3/uL Normal <=0.70 [facility] Comment on above: Performed By: #### 5 7021-8 #### [place] [address] [place] [address] Power Tool Repair Technician - Mireille LEGGETTIA [id number] Eosinophils/100 WBC (Bld) 4.1 % Normal <=10.0 [facility] Comment on above: Performed By: #### 5 7021-8 #### [address] [place] [address] Power Tool Repair Technician - Mireille LEGGETTIA [id number] Erythrocyte distribution width (RBC) [Entitic vol] 37.4 fL Normal 36.4-46.3 [facility] Comment on above: Performed By: #### 5 7021-8 #### [address] [facility] [facility] [facility] [place] [address] Power Tool Repair Technician - Mireille LEGGETTIA [id number] Hematocrit (Bld) [Volume fraction] 41.8 % Normal 37.0-47.0 [facility] Comment on above: Performed By: #### 5 7021-8 #### [place] [address] [place] [address] Power Tool Repair Technician - Mireille LEGGETTIA [id number] Hemoglobin (Bld) [Mass/Vol] 14.1 g/dL Normal 12.0-16.0 [facility] Comment on above: Performed By: #### 5 7021-8 #### [place] [address] [place] [address] Power Tool Repair Technician - Mireille LEGGETTIA [id number] Immature granulocytes (Bld) [#/Vol] 0.02 10*3/uL Normal <=0.10 [facility] Comment on above: Performed By: #### 5 7021-8 #### [address] [facility] [address] [facility] [place] [address] Power Tool Repair Technician - Mireille LEGGETTIA [id number] Immature granulocytes/100 WBC (Bld) 0.30 % Normal <=1.50 [facility] Comment on above: Performed By: #### 5 7021-8 #### [address] [facility] [facility] [facility] [place] [address] Power Tool Repair Technician - Mireille LEGGETTIA [id number] Lymphocytes (Bld) [#/Vol] 2.07 10*3/uL Normal 1.20-3.40 [facility] Comment on above: Performed By: #### 5 7021-8 #### [address] [place] [address] Power Tool Repair Technician - Mireille LEGGETTIA [id number] Lymphocytes/100 WBC (Bld) 30.2 % Normal 20.0-40.0 [facility] Comment on above: Performed By: #### 5 7021-8 #### [address] [place] [address] Power Tool Repair Technician - Mireille LEGGETTIA [id number] MCH (RBC) [Entitic mass] 28.5 pg Normal 27.0-31.0 [facility] Comment on above: Performed By: #### 5 7021-8 #### [address] [place] [address] Power Tool Repair Technician - Mireille PENNINGTON [id number] MCHC (RBC) [Mass/Vol] 33.7 g/dL Normal 32.0-36.0 [facility] Comment on above: Performed By: #### 5 7021-8 #### [facility] [address] [place] [address] Power Tool Repair Technician - Mireille LEGGETTIA [id number] MCV (RBC) [Entitic vol] 84.4 fL Normal 80.0-100.0 [facility] Comment on above: Performed By: #### 5 7021-8 #### [place] [address] [place] [address] Power Tool Repair Technician - Mireille LEGGETTIA [id number] Monocytes (Bld) [#/Vol] 0.34 10*3/uL Normal 0.10-0.60 [facility] Comment on above: Performed By: #### 5 7021-8 #### [place] [address] [place] [address] Power Tool Repair Technician - Mireille LEGGETTIA [id number] Monocytes/100 WBC (Bld) 5.0 % Normal <=8.0 [facility] Comment on above: Performed By: #### 5 7021-8 #### [place] [address] [place] [address] Power Tool Repair Technician - Mireille LEGGETTIA [id number] Neutrophils (Bld) [#/Vol] 4.09 10*3/uL Normal 1.40-6.50 [facility] Comment on above: Performed By: #### 5 7021-8 #### [place] [address] [place] [address] Power Tool Repair Technician - Mireille Garrido CLIA [id number] Neutrophils/100 WBC (Bld) 59.7 % Normal 50.0-70.0 [facility] Comment on above: Performed By: #### 5 7021-8 #### [place] [address] [place] [address] Power Tool Repair Technician - Mireille LEGGETTIA [id number] Nucleated RBC (Bld) [#/Vol] 0.00 10*3/uL Normal <=0.10 [facility] Comment on above: Performed By: #### 5 7021-8 #### [facility] [address] [place] [address] Power Tool Repair Technician - Mireille PENN[place] [id number] Platelet mean volume (Bld) [Entitic vol] 9.8 fL Normal 9.0-13.0 [facility] Comment on above: Performed By: #### 5 7021-8 #### [facility] [address] [place] [address] Power Tool Repair Technician - Mireille PENNINGTON [id number] Platelets (Bld) [#/Vol] 250 10*3/uL Normal 130-400 [facility] Comment on above: Performed By: #### 5 7021-8 #### [address] [place] [address] Power Tool Repair Technician - Mireille PENNINGTON [id number] RBC (Bld) [#/Vol] 4.95 10*6/uL Normal 4.00-6.30 [facility] Comment on above: Performed By: #### 5 7021-8 #### [address] [place] [address] Power Tool Repair Technician - Mireille PENNINGTON [id number] WBC (Bld) [#/Vol] 6.85 10*3/uL Normal 4.80-10.80 [facility] Comment on above: Performed By: #### 5 7021-8 #### [facility] [address] [place] [address] Power Tool Repair Technician - Mireille PENNINGTON [id number] URINE QUALITATIVEo n 08-06-2019 HCG ( test) Ql (U) Negative Normal NEGATIVE [facility] Comment on above: Performed By: #### 2 4323-8, 3040-3 #### [facility] [address] [place] [address] Power Tool Repair Technician - Mireille PENNINGTON [id number] CULTURE URINEon 07-29-2019 Bacteria identified Cx Nom (U) COLONY COUNT = ZERO COLONY FORMING UNITS, ML ISOL NO GROWTH OBSERVED AFTER 1 DAY NO PATHOGENS GROWN AFTER 2 DAYS Normal [facility] Comment on above: Performed By: #### 2 106-3, UAR, 630-4 #### [facility] [address] [place] [address] Power Tool Repair Technician - Mireille LEGGETTIA [id number] CBC with DIFFERENTIALon 07-05 Basophils (Bld) [#/Vol] 0.02 10*3/uL Normal <=0.70 [facility] Comment on above: Performed By: #### 5 7021-8 #### [place] [address] [place] [address] Power Tool Repair Technician - Mireille Garrido CLIA [id number] Basophils/100 WBC (Bld) 0.3 % Normal <=2.0 [facility] Comment on above: Performed By: #### 5 7021-8 #### [place] [address] [place] [address] [employer] Tool Repair Technician - Mireille Garrido CLIA [id number] Eosinophils (Bld) [#/Vol] 0.25 10*3/uL Normal <=0.70 [facility] Comment on above: Performed By: #### 5 7021-8 #### [place] [address] [place] [address] [employer] Tool Repair Technician - Mireille LEGGETTIA [id number] Eosinophils/100 WBC (Bld) 3.3 % Normal <=10.0 [facility] Comment on above: Performed By: #### 5 7021-8 #### [facility] [address] [place] [address] [employer] Tool Repair Technician - Mireille LEGGETTIA [id number] Erythrocyte distribution width (RBC) [Entitic vol] 38.5 fL Normal 36.4-46.3 [facility] Comment on above: Performed By: #### 5 7021-8 #### [address] [place] [address] [employer] Tool Repair Technician - Mireille Garrido CLIA [id number] Hematocrit (Bld) [Volume fraction] 41.2 % Normal 37.0-47.0 [facility] Comment on above: Performed By: #### 5 7021-8 #### [place] [address] [facility]. [place] [address] [employer] Tool Repair Technician - Mireille LEGGETTIA [id number] Hemoglobin (Bld) [Mass/Vol] 13.5 g/dL Normal 12.0-16.0 [facility] Comment on above: Performed By: #### 5 7021-8 #### [address] [place] [address] Power Tool Repair Technician - Mireille LEGGETTIA [id number] Immature granulocytes (Bld) [#/Vol] 0.02 10*3/uL Normal <=0.10 [facility] Comment on above: Performed By: #### 5 7021-8 #### [address] [place] [address] Power Tool Repair Technician - Mireille Garrido CLIA [id number] Immature granulocytes/100 WBC (Bld) 0.30 % Normal <=1.50 [facility] Comment on above: Performed By: #### 5 7021-8 #### [address] [place] [address] Power Tool Repair Technician - Mireille Garrido CLIA [id number] Lymphocytes (Bld) [#/Vol] 2.28 10*3/uL Normal 1.20-3.40 [facility] Comment on above: Performed By: #### 5 7021-8 #### [address] [facility]. [place] [address] [employer] Tool Repair Technician - Mireille Garrido CLIA [id number] Lymphocytes/100 WBC (Bld) 30.0 % Normal 20.0-40.0 [facility] Comment on above: Performed By: #### 5 7021-8 #### [address] [place] [address] Power Tool Repair Technician - Mireille LEGGETTIA [id number] MCH (RBC) [Entitic mass] 27.7 pg Normal 27.0-31.0 [facility] Comment on above: Performed By: #### 5 7021-8 #### [place] [address] [facility]. [place] [address] [employer] Tool Repair Technician - Mireille PENNINGTON [id number] MCHC (RBC) [Mass/Vol] 32.8 g/dL Normal 32.0-36.0 [facility] Comment on above: Performed By: #### 5 7021-8 #### [address] [place] [address] Power Tool Repair Technician - Mireille LEGGETTIA [id number] MCV (RBC) [Entitic vol] 84.6 fL Normal 80.0-100.0 [facility] Comment on above: Performed By: #### 5 7021-8 #### [address] [place] [address] Power Tool Repair Technician - Mireille LEGGETTIA [id number] Monocytes (Bld) [#/Vol] 0.45 10*3/uL Normal 0.10-0.60 [facility] Comment on above: Performed By: #### 5 7021-8 #### [place] [address] [facility]. [place] [address] Power Tool Repair Technician - Mireille LEGGETTIA [id number] Monocytes/100 WBC (Bld) 5.9 % Normal <=8.0 [facility] Comment on above: Performed By: #### 5 7021-8 #### [place] [address] [facility]. [place] [address] Power Tool Repair Technician - Mireille Garrido CLIA [id number] Neutrophils (Bld) [#/Vol] 4.59 10*3/uL Normal 1.40-6.50 [facility] Comment on above: Performed By: #### 5 7021-8 #### [address] [place] [address] Power Tool Repair Technician - Mireille Garrido CLIA [id number] Neutrophils/100 WBC (Bld) 60.2 % Normal 50.0-70.0 [facility] Comment on above: Performed By: #### 5 7021-8 #### [facility] [address] [place] [address] Power Tool Repair Technician - Mireille PENNINGTON [id number] Nucleated RBC (Bld) [#/Vol] 0.00 10*3/uL Normal <=0.10 [facility] Comment on above: Performed By: #### 5 7021-8 #### [facility] [address] [place] [address] Power Tool Repair Technician - Mireille PENNINGTON [id number] Platelet mean volume (Bld) [Entitic vol] 9.6 fL Normal 9.0-13.0 [facility] Comment on above: Performed By: #### 5 7021-8 #### [place] [address] [place] [address] Power Tool Repair Technician - Mireille PENNINGTON [id number] Platelets (Bld) [#/Vol] 236 10*3/uL Normal 130-400 [facility] Comment on above: Performed By: #### 5 7021-8 #### [place] [address] [place] [address] Power Tool Repair Technician - Mireille PENNINGTON [id number] RBC (Bld) [#/Vol] 4.87 10*6/uL Normal 4.00-6.30 [facility] Comment on above: Performed By: #### 5 7021-8 #### [place] [address] [place] [address] Power Tool Repair Technician - Mireille PENNINGTON [id number] WBC (Bld) [#/Vol] 7.61 10*3/uL Normal 4.80-10.80 [facility] Comment on above: Performed By: #### 5 7021-8 #### [facility] [address] [place] [address] Power Tool Repair Technician - Mireille PENNINGTON [id number] COMPREHENSIVE METABOLIC PANE Dony 07-27-2019 Albumin [Mass/Vol] 4.0 g/dL Normal 3.4-5.0 [facility] Comment on above: Performed By: #### 2 4323-8, 3040-3 #### [facility] [address] [place] [address] Power Tool Repair Technician - Mireille LEGGETTIA [id number] ALP [Catalytic activity/Vol] 59 U/L Normal 50-136 [facility] Comment on above: Performed By: #### 2 432-8, 0-3 #### [facility] [address] [place] [address] Power Tool Repair Technician - Mireille Garrido CLIA [id number] ALT [Catalytic activity/Vol] 16 U/L Normal 14-59 [facility] Comment on above: Performed By: #### 2 432-8, 0-3 #### [facility] [address] [place] [address] Power Tool Repair Technician - Mireille LEGGETTIA [id number] Anion gap [Moles/Vol] 6.0 mmol/L Normal <=15.0 [facility] Comment on above: Performed By: #### 2 8, 3039-3 #### [facility] [address] [place] [address] Power Tool Repair Technician - Mireille Garrido CLIA [id number] AST [Catalytic activity/Vol] 10 U/L Low 15-37 [facility] Comment on above: Performed By: #### 2 432-8, 0-3 #### [facility] [address] [place] [address] Power Tool Repair Technician - Mireille LEGGETTIA [id number] Bilirubin [Mass/Vol] 0.7 mg/dL Normal 0.2-1.0 [facility] Comment on above: Performed By: #### 2 432-8, 0-3 #### [facility] [address] [place] [address] Power Tool Repair Technician - Mireille Garrido CLIA [id number] Calcium [Mass/Vol] 8.8 mg/dL Normal 8.5-10.1 [facility] Comment on above: Performed By: #### 2 432-8, 0-3 #### [facility] [address] [place] [address] Power Tool Repair Technician - Mireille PENNINGTON [id number] Chloride [Moles/Vol] 106 mmol/L Normal 98-107 [facility] Comment on above: Performed By: #### 2 4323-8, 0-3 #### [facility] [address] [place] [address] Power Tool Repair Technician - Mireille PENNINGTON [id number] CO2 [Moles/Vol] 26 mmol/L Normal 21-32 [facility] Comment on above: Performed By: #### 2 4323-8, 3039-3 #### [facility] [address] Director - Mireille PENNINGTON [id number] Creatinine [Mass/Vol] 0.67 mg/dL Normal 0.51-0.95 [facility] Comment on above: Performed By: #### 2 4323-8, 3039-3 #### [facility] [address] Director - [facility] [id number] GFR/1.73 sq M predicted among non-blacks MDRD (S/P/Bld) [Vol rate/Area] GLOMERULAR FILTRATION RATE INTERPRETATION~The eGFR is calculated using the MDRD equation.~This equation has been validated in patients with chronic kidney disease;~however, it underestimates the GFR in healthy patients with GFR's over 60 mL/min.~The equation is not valid in children under the age of 18.~NOTE: Criteria for Chronic Kidney Disease:~ ~1. Kidney damage for at least three months, as defined~by structural or functional abnormalities of the kidney,~with or without decreased glomerular filtration rate, manifested by either:~* Pathological abnormalities or~* Markers of Kidney damage, including abnormalities in~the composition of the blood or urine or abnormalities in imaging tests.~ ~2. GFR <60 mL/min/1.73 m squared for at least three months, with or without kidney damage.~ Normal [facility] Comment on above: Performed By: #### 2 4323-8, 0-3 #### [facility] [address] [place] [address] Power Tool Repair Technician - Mireille LEGGETTIA [id number] GFR/1.73 sq M.predicted MDRD (S/P/Bld) [Vol rate/Area] mL/min/{1.73_m2} Normal >=59 [facility] Comment on above: Performed By: #### 2 4323-8, 0-3 #### [facility] [address] [place] [address] Power Tool Repair Technician - Mireille LEGGETTIA [id number] Glucose [Mass/Vol] 92 mg/dL Normal 74-106 [facility] Comment on above: Performed By: #### 2 432-8, 0-3 #### [facility] [address] [place] [address] Power Tool Repair Technician - Mireille LEGGETTIA [id number] Potassium [Moles/Vol] 3.7 mmol/L Normal 3.5-5.1 [facility] Comment on above: Performed By: #### 2 432-8, 0-3 #### [facility] [address] [place] [address] Power Tool Repair Technician - Mireille LEGGETTIA [id number] Protein [Mass/Vol] 7.4 g/dL Normal 6.4-8.2 [facility] Comment on above: Performed By: #### 2 4323-8, 0-3 #### [facility] [address] [place] [address] Power Tool Repair Technician - Mireille Garrido CLIA [id number] Sodium [Moles/Vol] 138 mmol/L Normal 136-145 [facility] Comment on above: Performed By: #### 2 432-8, 3040-3 #### [facility] [address] [place] [address] Power Tool Repair Technician - Mireille LEGGETTIA [id number] Urea nitrogen [Mass/Vol] 12 mg/dL Normal 7-17 [facility] Comment on above: Performed By: #### 2 4323-8, 0-3 #### [facility] [address] [place] [address] Power Tool Repair Technician - Mireille Garrido ADITI [id number] CT [facility] P[facility] ABDOMEN AND PELVIS WITH CONTRAST PROCEDURE: CT ABDOMEN AND PELVIS WITH CONTRAST, 07/27/2019, 7:53 AM EST. CLINICAL INDICATIONS: Right lower quadrant abdominal pain, nausea this a.m., prior cholecystectomy. COMPARISON: None. TECHNIQUE: Contiguous axial images obtained through the abdomen and pelvis after the administration of 75 mL Isovue-370 intravenous contrast. Helical acquisition technique was utilized with multiplanar reformatted images obtained. Dose reduction techniques were achieved by using: automated exposure control and/or adjustment of mA and /or kV according to patient size and/or use of iterative reconstruction technique. FINDINGS: CT ABDOMEN: Mild elevation right hemidiaphragm is seen with dependent lower lobe atelectasis. Gallbladder is surgically absent. The biliary tree is unremarkable. The liver is prominent, right lobe 19 cm longitudinally. The adrenal glands, spleen are unremarkable. Pancreas is normal. The aorta and inferior vena cava are normal in caliber. 0.9 cm circumscribed hypodense midpole right kidney lesion is seen, too small to characterize, cyst is favored. Nephrolithiasis, urinary tract calculus, obstructive uropathy are not suspected. CT PELVIS: Uterus is retroverted. An intrauterine device is present. There is mild right pelvic free fluid. Adnexa are mildly prominent although without focal abnormality. Stool and gas are seen within nondistended colon. Visualized bowel pattern is nonobstructive. Cecum is midline in the pelvis. The appendix is normal. Abdominal or pelvic lymphadenopathy, abscess, ectopic gas are not evident. Acute osseous pathology is not evident. IMPRESSION: 1. Normal appendix with nonobstructive bowel pattern. 2. Cholecystectomy without biliary dilatation. 3. Circumscribed hypodense subcentimeter right kidney lesion, too small to characterize, statistically benign. 4. Mild nonspecific hepatomegaly. 5. Mild-moderate right pelvic free fluid. Uterus is retroverted with intrauterine device. Adnexa are mildly prominent without focal abnormality. Pelvic sonography would be more accurate in further characterization. Normal [facility] LIPASEon 07-27-2019 Lipase [Catalytic activity/Vol] 125 U/L Normal 73-393 [facility] Comment on above: Performed By: #### 2 4323-8, 3040-3 #### [facility] [address] [place] [id number] Power Tool Repair Technician - Mireillejurgen Garrido ADITI [id number] ULTRASOUND DUPLEX ARTERIAL F LOW LIMITEDon 07-27-2019 ULTRASOUND DUPLEX ARTERIAL FLOW LIMITED PROCEDURE: ULTRASOUND PELVIS WITH TRANSVAGINAL VIEWS, ULTRASOUND DUPLEX ARTERIAL FLOW LIMITED, 07/27/2019 11:33 AM EST CLINICAL INDICATIONS: Right lower quadrant pain, pelvic pain, symptoms for 6 hours, evaluation for ovarian torsion, intrauterine device. LMP 07/13/2019 4 para 4 COMPARISON: CT abdomen and pelvis 07/27/2019. TECHNIQUE: Transabdominal and transvaginal pelvic sonogram with little scale, color, and spectral assessment. FINDINGS: UTERUS: 9.4 x 4.1 x 6.0 cm. Uterus is retroverted. Intrauterine device is adequately positioned within the endometrial cavity. A focal uterine abnormality is not evident. RIGHT OVARY: 3.5 x 2.0 x 2.8 cm, estimated volume of 11 mL. Increased number of subcentimeter physiologic cysts are noted. LEFT OVARY: 5.4 x 3.1 x 3.2 cm, estimated volume of 28 mL. A 2.4 x 1.8 x 2.2 cm complex left ovarian mass is seen. There is mild peripheral vascularity. Central echogenicity slightly greater than ovarian parenchyma. There is free fluid in the cul-de-sac. DUPLEX PELVIC VASCULATURE: There is intact flow within the ovarian tissue bilaterally by color-flow assessment. Arterial spectral tracing is identified from within. Right resistive index 0.60, left 0.61. IMPRESSION: 1. Retroverted uterus. 2. Intrauterine device is adequately positioned within the endometrial cavity. 3. Normal sonographic morphology of the right ovary with subcentimeter physiologic cysts. 4. 2.4 cm complex left ovarian mass. Complicated corpus luteal cyst, atypical hemorrhagic cyst, endometrioma, solid ovarian neoplasm may all present this pattern. 6-8 week followup recommended in this regard. 5. No sonographic sign of ovarian torsion. 6. Free fluid in the cul-de-sac. Normal [facility] ULTRASOUND PELVIS WITH TRANS VAGINAL VIEWSon 07-27-2019 ULTRASOUND PELVIS WITH TRANSVAGINAL VIEWS PROCEDURE: ULTRASOUND PELVIS WITH TRANSVAGINAL VIEWS, ULTRASOUND DUPLEX ARTERIAL FLOW LIMITED, 07/27/2019 11:33 AM EST CLINICAL INDICATIONS: Right lower quadrant pain, pelvic pain, symptoms for 6 hours, evaluation for ovarian torsion, intrauterine device. LMP 07/13/2019 4 para 4 COMPARISON: CT abdomen and pelvis 07/27/2019. TECHNIQUE: Transabdominal and transvaginal pelvic sonogram with little scale, color, and spectral assessment. FINDINGS: UTERUS: 9.4 x 4.1 x 6.0 cm. Uterus is retroverted. Intrauterine device is adequately positioned within the endometrial cavity. A focal uterine abnormality is not evident. RIGHT OVARY: 3.5 x 2.0 x 2.8 cm, estimated volume of 11 mL. Increased number of subcentimeter physiologic cysts are noted. LEFT OVARY: 5.4 x 3.1 x 3.2 cm, estimated volume of 28 mL. A 2.4 x 1.8 x 2.2 cm complex left ovarian mass is seen. There is mild peripheral vascularity. Central echogenicity slightly greater than ovarian parenchyma. There is free fluid in the cul-de-sac. DUPLEX PELVIC VASCULATURE: There is intact flow within the ovarian tissue bilaterally by color-flow assessment. Arterial spectral tracing is identified from within. Right resistive index 0.60, left 0.61. IMPRESSION: 1. Retroverted uterus. 2. Intrauterine device is adequately positioned within the endometrial cavity. 3. Normal sonographic morphology of the right ovary with subcentimeter physiologic cysts. 4. 2.4 cm complex left ovarian mass. Complicated corpus luteal cyst, atypical hemorrhagic cyst, endometrioma, solid ovarian neoplasm may all present this pattern. 6-8 week followup recommended in this regard. 5. No sonographic sign of ovarian torsion. 6. Free fluid in the cul-de-sac. Normal [facility] URINALYSIS with reflex to CU LTUREon 07-27-2019 Bacteria LM Ql (Urine sed) Negative Normal TRACE [facility] Comment on above: Performed By: #### 2 106-3, UAR, 630-4 #### [facility] [address] [place] [address] Power Tool Repair Technician - Mireille PENNINGTON [id number] Bilirubin Test strip (U) [Mass/Vol] Negative Normal NEGATIVE [facility] Comment on above: Performed By: #### 2 106-3, UAR, 630-4 #### [facility] [address] [place] [address] Power Tool Repair Technician - Mireille LEGGETTIA [id number] Clarity (U) CLEAR Normal CLEAR [facility] Comment on above: Performed By: #### 2 106-3, UAR, 630- #### [facility] [address] [facility]. [place] [address] Power Tool Repair Technician - Mireille LEGGETTIA [id number] Color (U) YELLOW Normal YELLOW [facility] Comment on above: Performed By: #### 2 106-3, UAR, 630- #### [facility] [address] [facility]. [place] [address] Power Tool Repair Technician - Mireille LEGGETTIA [id number] Glucose Test strip (U) [Mass/Vol] Negative Normal NEGATIVE [facility] Comment on above: Performed By: #### 2 106-3, UAR, - #### [address] [place] [address] Power Tool Repair Technician - Mireille PENNINGTON [id number] HMICRO MICROSCOPIC Normal [facility] Comment on above: Performed By: #### 2 106-3, UAR, 630- #### [facility] [address] [facility] [place] [address] Power Tool Repair Technician - Mireille PENNINGTON [id number] Hyaline casts (Urine sed) [#/Area] 0-8 Normal 0-8 [facility] Comment on above: Performed By: #### 2 106-3, UAR, 630-4 #### [facility] [address] [facility] [place] [address] Power Tool Repair Technician - Mireille PENNINGTON [id number] Ketones (U) [Mass/Vol] Negative Normal NEGATIVE [facility] Comment on above: Performed By: #### 2 106-3, UAR, 630- #### [facility] [address] [facility] [place] [address] Power Tool Repair Technician - Mireille PENNINGTON [id number] Leukocyte esterase Qn (U) 1+ Abnormal TRACE [facility] Comment on above: Performed By: #### 2 106-3, UAR, 630-4 #### [facility] [address] [place] [address] Power Tool Repair Technician - Mireille LEGGETTIA [id number] Nitrite Ql (U) Negative Normal NEGATIVE [facility] Comment on above: Performed By: #### 2 106-3, UAR, 630- #### [facility] [address] [place] [address] Power Tool Repair Technician - Mireille PENNINGTON [id number] pH (U) 5.5 [pH] Normal 5.5-7.5 [facility] Comment on above: Performed By: #### 2 106-3, UAR, - #### [facility] [address] [place] [address] Power Tool Repair Technician - Mireille PENNINGTON [id number] Protein (U) [Mass/Vol] 1+ Abnormal NEGATIVE [facility] Comment on above: Performed By: #### 2 106-3, UAR, - #### [facility] [address] [place] [address] Power Tool Repair Technician - Mireille PENNINGTON [id number] RBC (U) [#/Vol] Negative Normal NEGATIVE [facility] Comment on above: Performed By: #### 2 106-3, UAR, - #### [facility] [address] [place] [address] Power Tool Repair Technician - Mireille PENNINGTON [id number] RBC LM.HPF (Urine sed) [#/Area] 4-10 Abnormal 0-4 [facility] Comment on above: Performed By: #### 2 106-3, UAR, - #### [facility] [address] [place] [address] Power Tool Repair Technician - Mireille PENNINGTON [id number] Specific gravity (U) [Rel density] 1.029 Normal 1.010-1.035 [facility] Comment on above: Performed By: #### 2 106-3, UAR, 630- #### [facility] [address] [place] [address] Power Tool Repair Technician - Mireille PENNINGTON [id number] SQUAMOUS EPITHELIALS 6-10 Abnormal 0-5 [facility] Comment on above: Performed By: #### 2 106-3, UAR, 630-4 #### [facility] [address] [place] [address] Power Tool Repair Technician - Mireille PENNINGTON [id number] Urobilinogen Qn (U) 1.0 {Yuki'U}/dL Normal <=1.0 [facility] Comment on above: Result Comment: 1.0 E.U./dL Performed By: #### 2 106-3, UAR, 630-4 #### [facility] [address] [facility]. [place] [address] Power Tool Repair Technician - Mireille Garridoeddie PENNINGTON [id number] WBC LM.HPF (Urine sed) [#/Area] 10-20 Abnormal 0-5 [facility] Comment on above: Performed By: #### 2 106-3, UAR, 630-4 #### [facility] [address] [facility] [address] [place] [address] Power Tool Repair Technician - Mireille Garridoeddie PENNINGTON [id number] URINE QUALITATIVEo n 07-27-2019 HCG ( test) Ql (U) Negative Normal NEGATIVE [facility] Comment on above: Performed By: #### 2 106-3, UAR, 630-4 #### [facility] [address] [facility] [place] [address] Power Tool Repair Technician - Mireille PENNINGTON [id number] Basic Metabolic Panelon 04-04 Calcium mass conc 8.7 mg/dL Normal 8.4-10.2 [facility] Comment on above: Performed By: #### H CGQT, CHEM8, CBCDIF, EDCTNI ####Unless otherwise noted, all testing performed by [facility] [place] [address] [address] [place], [place] [id number]: [id number] Director: Hemal Burr M.D. Chloride molar conc 108 mmol/L Normal 98-108 [facility] Comment on above: Performed By: #### H CGQT, CHEM8, CBCDIF, EDCTNI ####Unless otherwise noted, all testing performed by [place] [id number]: [id number] Director: Hemal Burr M.D. CO2 molar conc 24 mmol/L Normal 21-32 [facility] Comment on above: Performed By: #### H CGQT, CHEM8, CBCDIF, EDCTNI ####Unless otherwise noted, all testing performed by [address]: [id number] Director: Hemal Burr M.D. Creatinine mass conc 0.49 mg/dL Normal 0.40-1.10 [facility] Comment on above: Performed By: #### H CGQT, CHEM8, CBCDIF, EDCTNI ####Unless otherwise noted, all testing performed by [address]: [id number] Director: Hemal Burr M.D. GFR/1.73 sq M predicted among blacks MDRD vol rate/area (S/P/Bld) mL/min/{1.73_m2} Normal [facility] Comment on above: Result Comment: Afri can Tajik GFR Calc Performed By: #### H CGQT, CHEM8, CBCDIF, EDCTNI ####Unless otherwise noted, all testing performed by [place] [id number]: [id number] Director: Hemal Burr M.D. GFR/1.73 sq M predicted among non-blacks MDRD vol rate/area (S/P/Bld) mL/min/{1.73_m2} Normal [facility] Comment on above: Result Comment: Non- GFR CalceGFR is an estimated Glomerular Filtration Rate based on the valueof the patient's serum creatinine. In outpatients, eGFR should be usedas a helpful tool in screening for CKD. In inpatients or patients withacute renal failure, eGFR represents the GFR at the moment of the drawand should be used with caution. Performed By: #### H CGQT, CHEM8, CBCDIF, EDCTNI ####Unless otherwise noted, all testing performed by [address] [id number]: [id number] Director: Hemal Burr M.D. Glucose mass conc 86 mg/dL Normal 70-99 [facility] Comment on above: Result Comment: This test result might be falsely depressed or falsely elevated onsamples drawn from patients taking Sulfasalazine and Sulfapyridine.Venipuncture should occur prior to taking either of these drugs. Performed By: #### H CGQT, CHEM8, CBCDIF, EDCTNI ####Unless otherwise noted, all testing performed by [address] [phone]: [id number] Director: Hemal Burr M.D. Potassium molar conc 3.7 mmol/L Normal 3.5-5.1 [facility] Comment on above: Performed By: #### H CGQT, CHEM8, CBCDIF, EDCTNI ####Unless otherwise noted, all testing performed by [address] [phone]: [id number] Director: Hemal Burr M.D. Urea nitrogen mass conc 6 mg/dL Low 8-25 [facility] Comment on above: Performed By: #### H CGQT, CHEM8, CBCDIF, EDCTNI ####Unless otherwise noted, all testing performed by [place] [phone]: [id number] Director: Hemal Burr M.D. CBC with Diffon 04-27-2018 Basophils Auto #/vol (Bld) 0.0 K/mcL Normal 0-0.2 [facility] Comment on above: Performed By: #### H CGQT, CHEM8, CBCDIF, EDCTNI ####Unless otherwise noted, all testing performed by [address]CLIA: [id number] Director: Hemal Burr M.D. Basophils/100 WBC Auto (Bld) 0.1 % Normal [facility] Comment on above: Performed By: #### H CGQT, CHEM8, CBCDIF, EDCTNI ####Unless otherwise noted, all testing performed by [address]CLIA: [id number] Director: Hemal Burr M.D. Eosinophils Auto #/vol (Bld) 0.2 K/mcL Normal 0-0.5 [facility] Comment on above: Performed By: #### H CGQT, CHEM8, CBCDIF, EDCTNI ####Unless otherwise noted, all testing performed by [address]CLIA: [id number] Director: Hemal Burr M.D. Eosinophils/100 WBC Auto (Bld) 1.8 % Normal [facility] Comment on above: Performed By: #### H CGQT, CHEM8, CBCDIF, EDCTNI ####Unless otherwise noted, all testing performed by [address] [phone]: [id number] Director: Hemal Burr M.D. Erythrocyte distribution width Auto Ratio (RBC) 13.5 % Normal 10.0-14.4 [facility] Comment on above: Performed By: #### H CGQT, CHEM8, CBCDIF, EDCTNI ####Unless otherwise noted, all testing performed by [address] [phone]: [id number] Director: Hemal Burr M.D. Hematocrit Auto Volume Fraction (Bld) 36.6 % Normal 34.4-44.8 [facility] Comment on above: Performed By: #### H CGQT, CHEM8, CBCDIF, EDCTNI ####Unless otherwise noted, all testing performed by [address] [phone]: [id number] Director: Hemal Burr M.D. Hemoglobin mass conc (Bld) 12.4 g/dL Normal 11.6-15.4 [facility] Comment on above: Performed By: #### H CGQT, CHEM8, CBCDIF, EDCTNI ####Unless otherwise noted, all testing performed by [address] [phone]: [id number] Director: Hemal Burr M.D. Lymphocytes Auto #/vol (Bld) 1.4 K/mcL Normal 1.0-3.7 [facility] Comment on above: Performed By: #### H CGQT, CHEM8, CBCDIF, EDCTNI ####Unless otherwise noted, all testing performed by [address] [phone]: [id number] Director: Hemal Burr M.D. Lymphocytes/100 WBC Auto (Bld) 15.6 % Normal [facility] Comment on above: Performed By: #### H CGQT, CHEM8, CBCDIF, EDCTNI ####Unless otherwise noted, all testing performed by [address] [phone]: [id number] Director: Hemal Burr M.D. MCH Auto Entitic mass (RBC) 28.8 pg Normal 27.9-33.9 [facility] Comment on above: Performed By: #### H CGQT, CHEM8, CBCDIF, EDCTNI ####Unless otherwise noted, all testing performed by [address] [phone]: [id number] Director: Hemal Burr M.D. MCHC Auto mass conc (RBC) 34.0 g/dL Normal 33.1-35.1 [facility] Comment on above: Performed By: #### H CGQT, CHEM8, CBCDIF, EDCTNI ####Unless otherwise noted, all testing performed by [address] [phone]: [id number] Director: Hemal Burr M.D. MCV Auto Entitic volume (RBC) 84.7 fL Normal 82.6-98.9 [facility] Comment on above: Performed By: #### H CGQT, CHEM8, CBCDIF, EDCTNI ####Unless otherwise noted, all testing performed by [address] [phone]: [id number] Director: Hemal Burr M.D. Monocytes Auto #/vol (Bld) 0.5 K/mcL Normal 0.1-0.6 [facility] Comment on above: Performed By: #### H CGQT, CHEM8, CBCDIF, EDCTNI ####Unless otherwise noted, all testing performed by [address] [phone]: [id number] Director: Hemal Burr M.D. Monocytes/100 WBC Auto (Bld) 5.0 % Normal [facility] Comment on above: Performed By: #### H CGQT, CHEM8, CBCDIF, EDCTNI ####Unless otherwise noted, all testing performed by [address] [phone]: [id number] Director: Hemal Burr M.D. Neutrophils Auto #/vol (Bld) 7.1 K/mcL High 1.2-6.9 [facility] Comment on above: Performed By: #### H CGQT, CHEM8, CBCDIF, EDCTNI ####Unless otherwise noted, all testing performed by [address] [phone]: [id number] Director: Hemal Burr M.D. Platelet mean volume Auto Entitic volume (Bld) 8.4 fL Normal 7.0-10.6 [facility] Comment on above: Performed By: #### H CGQT, CHEM8, CBCDIF, EDCTNI ####Unless otherwise noted, all testing performed by [address] [phone]: [id number] Director: Hemal Burr M.D. Platelets Auto #/vol (Bld) 230 K/mcL Normal 162-402 [facility] Comment on above: Performed By: #### H CGQT, CHEM8, CBCDIF, EDCTNI ####Unless otherwise noted, all testing performed by [address] [phone]: [id number] Director: Hemal Burr M.D. RBC Auto #/vol (Bld) 4.32 M/mcL Normal 3.7-5.0 [facility] Comment on above: Performed By: #### H CGQT, CHEM8, CBCDIF, EDCTNI ####Unless otherwise noted, all testing performed by [address] [phone]: [id number] Director: Hemal Burr M.D. Segmented Neut % 77.5 % Normal [facility] Comment on above: Performed By: #### H CGQT, CHEM8, CBCDIF, EDCTNI ####Unless otherwise noted, all testing performed by [address] [phone]: [id number] Director: Hemal Burr M.D. WBC Auto #/vol (Bld) 9.1 K/mcL Normal 3.4-10.6 [facility] Comment on above: Performed By: #### H CGQT, CHEM8, CBCDIF, EDCTNI ####Unless otherwise noted, all testing performed by [address], [place] [phone]: [id number] Director: Hemal Burr M.D. CHEST (ONE VIEW ONLY)on 04-04 CHEST (ONE VIEW ONLY) Final ReportAccession No: [id number] Performed: Apr 27 2018 6:54PMExamination: CHEST (ONE VIEW ONLY)CHEST (ONE VIEW ONLY):HISTORY: Chest pain.COMPARISON: None.FINDINGS: The cardiomediastinal silhouette appears normal. The lungs areclear.There is no pleural effusion or pneumothorax. Bones and soft tissuesappearnormal.IMP RESSION:No acute cardiopulmonary process.Interpreting Physician: HAILEY BARKER M.D.Trans: istumb : cc: Normal [facility] D-Dimeron 04-27-2018 D-Dimer 0.39 mcg/ml (FEU) Normal < .5 [facility] Comment on above: Result Comment: This test is intended for use in conjunction with a clinical pretestprobability (PTP) assessment model to exclude pulmonary embolism (PE) anddeep vein thrombosis (DVT) in outpatients suspected of PE or DVT. Performed By: #### D DIMR ####Unless otherwise noted, all testing performed by [address] [phone]: [id number] Director: Hemal Burr M.D. ED Cardiac Troponin-Ion 04-04 Troponin I.cardiac mass conc ng/mL Normal < 45 [facility] Comment on above: Result Comment: Elev ation of troponin indicates some degree of myocardial necrosis butunless there is a significant rise and/or fall (if elevated) identified,it unlikely that an acute event has taken placeSamples from patients routinely receiving high dose biotin therapy(100-300 mg/day) may show falsely decreased results. Please correlateclinically. Performed By: #### E DCTNI ####Unless otherwise noted, all testing performed by [address], [place] [phone]: [id number] Director: Hemal Burr M.D. Troponin I.cardiac mass conc ng/mL Normal < 45 [facility] Comment on above: Result Comment: Elev ation of troponin indicates some degree of myocardial necrosis butunless there is a significant rise and/or fall (if elevated) identified,it unlikely that an acute event has taken placeSamples from patients routinely receiving high dose biotin therapy(100-300 mg/day) may show falsely decreased results. Please correlateclinically. Performed By: #### H CGQT, CHEM8, CBCDIF, EDCTNI ####Unless otherwise noted, all testing performed by [address] [phone]: [id number] Director: Hemal Burr M.D. HCG, Quantitativeon 04-27- 18 HCG, Quantitative 74242 mIU/mL Normal [facility] Comment on above: Result Comment: HCG, Quant. Reference Range: [Units mIU/ml]Gestation Age Approx.HCG0.2-1Week 5-501-2 Weeks 50-5002-3 Weeks 100-5,0003-4 Weeks 500-10,0004-5 Weeks 1,000-50,0006-8 Weeks 15,000-200,0002-3 Months 10,000-100,000Non- Females <5Males <5 Performed By: #### H CGQT, CHEM8, CBCDIF, EDCTNI ####Unless otherwise noted, all testing performed by [address] [phone]: [id number] Director: Hemal Burr M.D. iSTAT Pediatric Panelon - Chloride molar conc 104 mmol/L Normal 98-109 [facility] Comment on above: Performed By: #### E RPED ####Unless otherwise noted, all testing performed by [address] [phone]: [id number] Director: Hemal Burr M.D. CO2 molar conc 25 mmol/L Normal 23-32 [facility] Comment on above: Performed By: #### E RPED ####Unless otherwise noted, all testing performed by [address] [phone]: [id number] Director: Hemal Burr M.D. Creatinine mass conc 0.4 mg/dL Normal 0.40-1.10 [facility] Comment on above: Performed By: #### E RPED ####Unless otherwise noted, all testing performed by [address] [phone]: [id number] Director: Hemal Burr M.D. Glucose mass conc 88 mg/dL Normal 70-99 [facility] Comment on above: Performed By: #### E RPED ####Unless otherwise noted, all testing performed by [address] [phone]: [id number] Director: Hemal Burr M.D. Hematocrit Auto Volume Fraction (Bld) 36 % Low 38.0-51.0 [facility] Comment on above: Performed By: #### E RPED ####Unless otherwise noted, all testing performed by [address] [phone]: [id number] Director: Hemal Burr M.D. Hemoglobin mass conc (Bld) 12.2 g/dL Normal 12.0-17.0 [facility] Comment on above: Performed By: #### E RPED ####Unless otherwise noted, all testing performed by [address] [phone]: [id number] Director: Hemal Burr M.D. Ionized Calcm 1.17 mmol/L Normal 1.12-1.32 [facility] Comment on above: Performed By: #### E RPED ####Unless otherwise noted, all testing performed by [place] [phone]: [id number] Director: Hemal Burr M.D. Potassium molar conc 3.6 mmol/L Normal 3.5-4.9 [facility] Comment on above: Performed By: #### E RPED ####Unless otherwise noted, all testing performed by [place] [phone]: [id number] Director: Hemal Burr M.D. Urea nitrogen mass conc 4 mg/dL Low 8-26 [facility] Comment on above: Performed By: #### E RPED ####Unless otherwise noted, all testing performed by [place] [phone]: [id number] Director: Hemal Burr M.D. Sodium molar conc 139 mmol/L Normal 135-145 [facility] Comment on above: Performed By: #### E RPED ####Unless otherwise noted, all testing performed by [place] [phone]: [id number] Director: Hemal Burr M.D. Performed By: #### H CGQT, CHEM8, CBCDIF, EDCTNI ####Unless otherwise noted, all testing performed by [place] [address], [place] [phone]: [id number] Director: Hemal Burr M.D. HIV 1 AND 2 Antibody Screeno n 04-08-2018 HIV 1 AND 2 Antibody Screen Negative Normal Negative [facility] Comment on above: Result Comment: Nega tive result does not rule out HIV infection. If exposure to HIV infection occurred <14 days ago, contact the laboratory to request addition of HIV-1 RNA detection / quantification test (HIVQN). Test Performed by: [place] [address] Performed By: #### H IV12 #### [place] [address] Hepatitis B Surface Agon Hepatitis Bs Antigen Negative Normal Negative [facility] Comment on above: Result Comment: Test Performed by: [place] [address] Performed By: #### C MP #### [place] [address] Rubella IgG Abon 04-08-2018 Rubella IgG Ab Positive Normal [facility] Comment on above: Result Comment: Resu lts suggest response to immunization or prior exposure to the virus. REFERENCE VALUE Vaccinated: Positive (>=1.0 AI) Unvaccinated: Negative (<=0.7 AI) Performed By: #### R UBLG #### [place] [address] Rubella IgG Index 1.1 Normal [facility] Comment on above: Result Comment: Test Performed by: [facility] [address] [facility], [place] [address] Performed By: #### R UBLG #### [address] [address] Hemoglobin A1con 04-07-2018 Hemoglobin A1c/Hemoglobin.tota l mass fraction (Bld) 5.2 % Normal 0.0-6.4 [facility] Comment on above: Performed By: #### H BA1C #### [address] [address] Hemoglobin HPLCon 04-07-2018 A2Hgb 2.8 % Normal 1.8-3.2 [facility] Comment on above: Performed By: #### H HPLC #### [address] [address] Comment ----- Normal [facility] Comment on above: Result Comment: No abnormal hemoglobins detected. Performed By: #### H HPLC #### [address] [address] Hemoglobin mass conc (Bld) 96.9 % Normal 95.0-100.0 [facility] Comment on above: Performed By: #### H HPLC #### [address] [address] Hemoglobin mass conc (Bld) g/dL Normal 0.0-1.9 [facility] Comment on above: Performed By: #### H HPLC #### [place] [address] Rapid Plasma Reaginon 2017 Rapid Plasma Reagin Nonreactive Normal [facility] Comment on above: Result Comment: REFE RENCE RANGE: Nonreactive A reactive RPR should be verified by an FTA to confirm active infection. Performed By: #### R HI #### [address] [address] Type AND Antibody Screenon Direct Antiglobulin Test Negative Normal [facility] Comment on above: Performed By: #### T /S #### [address] [address] Screening Cells Negative Normal [facility] Comment on above: Performed By: #### T /S #### [address] [address] RH Type Positive Normal [facility] Comment on above: Performed By: #### T /S #### [address] [address] ABO Type O Normal [facility] Comment on above: Performed By: #### T /S #### [address] [address] C. trachomatis Amplified Pro beon 04-06-2018 C. trachomatis Amplified Probe C. trachomatis Amplified Probe: NEGATIVE. No Chlamydia trachomatis DNA detected. Source: URINE Collected: 04/06/18 12:00 Site: Received : 04/06/18 17:03 C. trachomatis Amplified Probe FINAL 04/07/18 14:20 NEGATIVE. No Chlamydia trachomatis DNA detected. - Method: DNA Probe Detection by Strand Displacement Amplification Assay. - NOTE: This Ampified DNA Assay should not be used for the evaluation of suspected sexual abuse or for other medico-legal indications. - Screening urine specimens for Chlamydia trachomatis and Neisseria gonorrhoeae using nucleic acid amplification is an accurate and sensitive method compared to standard techniques of detection of these pathogens. Because the pathogen is diluted in urine, it is somewhat less sensitive than a direct swab specimen evaluated by nucleic acid amplification techniques. Normal [facility] Comment on above: Performed By: #### C TAMP #### [address] [address] Comp Metabolic Panelon 04-06 Albumin mass conc 4.4 g/dL Normal 3.5-5.0 [facility] Comment on above: Performed By: #### C MP #### [address] [address] ALP enzyme act/vol 43 U/L Normal 35-104 [facility] Comment on above: Performed By: #### C MP #### [address] [id number] ALT enzyme act/vol 16 U/L Normal 0-31 [facility] Comment on above: Performed By: #### C MP #### [address] [id number] AST enzyme act/vol 16 U/L Normal 0-31 [facility] Comment on above: Performed By: #### C MP #### [address] [address] Bili,Total 0.6 mg/dl Normal 0.0-1.0 [facility] Comment on above: Result Comment: Premature : 1 Day 1.0-6.0 mg/dl 2 Day 6.0-8.0 mg/dl 3-5 Day 10.0-15.0 mg/dl Performed By: #### C MP #### [address] [address] Calcium mass conc 9.1 mg/dL Normal 7.6-11.0 [facility] Comment on above: Performed By: #### C MP #### [address] [address] Chloride molar conc 105 mmol/L Normal 96-108 [facility] Comment on above: Performed By: #### C MP #### [address] [address] CO2 molar conc 23.8 mmol/L Normal 22.0-29.0 [facility] Comment on above: Performed By: #### C MP #### [address] [address] Creatinine mass conc 0.60 mg/dL Normal 0.50-1.00 [facility] Comment on above: Result Comment: Premature 0.3-1.0 mg/dL Performed By: #### C MP #### [address] [address] Glucose mass conc 99 mg/dL Normal 70-99 [facility] Comment on above: Result Comment: Criteria for Diagnosis of Diabetes(Effective 12/07/10): Fasting specimen (no caloric intake for at least 8 hours). <100 mg/dl Normal 100-125 mg/dl Increased Risk for Diabetes >125 mg/dl Diagnostic for Diabetes Random Glucose (any time of day without regard to last meal). >=200 mg/dl plus Classic Symptoms of Diabetes Performed By: #### C MP #### [place] [address] Potassium molar conc 4.0 mmol/L Normal 3.3-5.1 [facility] Comment on above: Performed By: #### C MP #### [address] [address] Protein mass conc 7.2 g/dL Normal 5.9-8.4 [facility] Comment on above: Performed By: #### C MP #### [address] [address] Sodium molar conc 137 mmol/L Normal 133-145 [facility] Comment on above: Performed By: #### C MP #### [address] [address] Urea nitrogen mass conc 7 mg/dL Normal 4-19 [facility] Comment on above: Performed By: #### C MP #### [address] [id number] Complete Blood Counton 04-06 Differential Complete Automated Normal [facility] Comment on above: Performed By: #### C BC #### [address] [address] % Neutrophils 59.8 % Normal 35.0-66.0 [facility] Comment on above: Performed By: #### C BC #### [address] [address] Basophils/100 WBC (Bld) 0.50 % Normal 0.00-1.00 [facility] Comment on above: Performed By: #### C BC #### [address] [address] Eosinophils/100 WBC (Bld) 1.90 % Normal 0.00-3.00 [facility] Comment on above: Performed By: #### C BC #### [address] [address] Erythrocyte distribution width Ratio (RBC) 12.8 % Normal 0.0-14.4 [facility] Comment on above: Performed By: #### C BC #### [address] [address] Hematocrit Volume Fraction (Bld) 38.4 % Normal 36.0-44.0 [facility] Comment on above: Performed By: #### C BC #### [address] [address] Hemoglobin mass conc (Bld) 12.6 g/dL Normal 12.0-15.0 [facility] Comment on above: Performed By: #### C BC #### [address] [address] Immature granulocytes/100 WBC (Bld) 0.40 % Normal [facility] Comment on above: Result Comment: Yahaira ture Granulocyte Percent includes promyelocytes, myelocytes, and metamyelocytes. IG% > 1.0 indicates a left shift is present. With automated differentials, bands are included in the neutrophil count and not in the Immature Granulocyte Percent. Performed By: #### C BC #### [address] [address] Lymphocytes/100 WBC (Bld) 31.6 % Normal 24.0-44.0 [facility] Comment on above: Performed By: #### C BC #### [address] [address] MCH Entitic mass (RBC) 27.5 pg Normal 26.0-34.0 [facility] Comment on above: Performed By: #### C BC #### [address] [address] MCHC mass conc (RBC) 32.8 % Normal 31.0-37.0 [facility] Comment on above: Performed By: #### C BC #### [address] [address] MCV Entitic volume (RBC) 83.7 fL Normal 80.0-100.0 [facility] Comment on above: Performed By: #### C BC #### [address] [address] Monocytes/100 WBC (Bld) 5.80 % Normal 3.00-6.00 [facility] Comment on above: Performed By: #### C BC #### [address] [address] Neutrophils #/vol (Bld) 4.6 Normal [facility] Comment on above: Performed By: #### C BC #### [address] [address] Nucleated RBC/100 WBC Ratio (Bld) 0.0 % Normal -1.0-0.0 [facility] Comment on above: Performed By: #### C BC #### [address] [address] Platelet mean volume Entitic volume (Bld) 9.9 fL Normal [facility] Comment on above: Result Comment: MPV is platelet range and age dependent Performed By: #### C BC #### [address] [address] Platelets #/vol (Bld) 254 10*3/uL Normal 150-450 [facility] [place] Comment on above: Performed By: #### C BC #### [address] [address] RBC #/vol (Bld) 4.59 10E12/L Normal 4.00-4.90 [facility] [place] Comment on above: Performed By: #### C BC #### [address] [address] WBC #/vol (Bld) 7.7 10*3/uL Normal 4.5-11.0 [facility] [place] Comment on above: Performed By: #### C BC #### [address] [address] GC Amplified Probeon 018 Protein mass conc GC Amplified Probe: NEGATIVE. No Neisseria gonorrhoeae DNA detected. Source: URINE Collected: 04/06/18 12:00 Site: Received : 04/06/18 17:03 GC Amplified Probe FINAL 04/07/18 14:23 NEGATIVE. No Neisseria gonorrhoeae DNA detected. - Method: DNA Probe Detection by Strand Displacement Amplification Assay. - NOTE: This Amplified DNA Assay should not be used for the evaluation of suspected sexual abuse or for other medico-legal indications. - Screening urine specimens for Chlamydia trachomatis and Neisseria gonorrhoeae using nucleic acid amplification is an accurate and sensitive method compared to standard techniques of detection of these pathogens. Because the pathogen is diluted in urine, it is somewhat less sensitive than a direct swab specimen evaluated by nucleic acid amplification techniques. Normal [facility] [place] Comment on above: Performed By: #### G CAMP #### [place] [address] Hemoglobin A1con 04-06-2018 Hemoglobin A1c/Hemoglobin.tota l mass fraction (Bld) ----- Normal [facility] [place] Comment on above: Result Comment: In D iagnosed Diabetes: > 8 Action suggested 7-8 Good Control 6-7 Near Normal Glycemia < 6 Non-diabetic level Diabetes Screenin.7-6.4% Prediabetic >6.5% Diabetic - should be confirmed with repeat HgA1c or fasting blood sugar. Performed By: #### H BA1C #### [address] [address] Hemoglobin HPLCon 04-06-2018 Hemoglobin Variants ----- Normal [facility] [place] Comment on above: Performed By: #### H HPLC #### [address] [address] Progress Noteon 04-06-2018 [employer] Worker Authentication Interface Message Text Maternal Medicine Consult Date of Service: 04/06/2018 Referring Provider: Self Referred Primary Care Provider: Nallely Cruz MD Reason for Consult: Dr. Breaux requests that Maciej be evaluated due to a history of hyperemesis gravidarum. HPIMochriss is a 22 y.o. at 6 weeks 0 days by crown rump length done today. The patient states that she had hyperemesis gravidarum during all three of her pregnancies requiring a zofran pump and home IV fluids. This , she is tolerating some PO fluids and popsicles. She does have daily emesis. She also has a history of epilepsy diagnosed as a child. She followed with Dr. Sr at [facility] and transferred care to Dr. Yi two years ago. She is well controlled on no medication. She last saw Dr. Yi two years ago. She had not had a seizure in five years. The patient states that all of her children have issues . One child had laryngeomalacia, another has intracranial hypertension and epilepsy. Obstetric History T3 L3 SAB0 TAB0 Ectopic0 Multiple0 Live Births3 # Outcome Date GA Lbr Raudel/2nd Weight Sex Delivery Anes PTL Lv 4 Current 3 Term 12/21/16 39w0d 3.884 kg M Vag-Spont EPI Y TEREZA Name: Andrew 2 Term 07/08/14 39w0d 3.827 kg M Vag-Spont None Y TEREZA Name: Georges 1 Term 09/04/12 40w0d 3.345 kg F EPI N TEREZA Name: Maximus Obstetric Comments labor with 2nd and 3rd pregnany- resolved with Terbutaline GDMA1(diet controlled per pt) with 1st and 2nd pregancy. Past Medical History: Diagnosis Date Anxiety diagnosed last year;was on medication; was on hydroxyzine for this, but not anymore Depression 2017 diagnosed last year;no meds now Epilepsy diagnosed at age 12 when starting menses;no seizures since daughter was born in 2012; she said that she had 1 seizure with Gestational diabetes mellitus (GDM) gestational diabetes with the first 2 pregnancies; diet controlled UTI (urinary tract infection) frequent UTi's and had a kidney infection due to UTI once Past Surgical History: Procedure Laterality Date CHOLECYSTECTOMY 2013 Allergies Allergen Reactions Ativan [Lorazepam] Shortness Of Breath and Other (See Comments) feeels flushed and face turns red Lamotrigine Rash Social History Social History Marital status: Single Spouse name: N/A Number of children: N/A Years of education: N/A Social History Main Topics Smoking status: Never Smoker Smokeless tobacco: Never Used Alcohol use No Drug use: No Sexual activity: Yes Partners: Male Other Topics Concern None Social History Narrative None Infections Live with someone with or exposed to TB No Partner has hx of genital herpes No Rash or viral illness since last menstruation No History of STI's Hx of MMR No 2nd STI 3rd STI Is there anything else we should know? No Other infections Genetics Age is > than 35y as of estimated date No Thalassemia No Neural Tube Defect No Congenital Heart Defect No Down Syndrome No Martín-Sachs No Afshin Disease No Sickle Cell Disease or Trait No Hemophilia, Thrombophilia No Muscular Dystrophy No Cystic Fibrosis No Shane's Chorea No Mental Retardation/Autism No Recurrent Loss, or a Stillbirth No Inherited Genetic or Chromosomal Disorder No Illicit; Rec.drugs; Alcohol since last menses No Family History Problem Relation Age of Onset Anxiety Disorder Mother Cancer Mother cervical Diabetes Mellitus II Father Heart Disease Father 40 heart attack Stroke Father has had many strokes- age at first stroke-40 High Blood Pressure Father Miscarriages / Stillbirths Sister 2 miscarriages Learning Disabilities Brother Heart Disease Paternal Grandmother heart attack- had a heart attack at age 69 Diabetes Mellitus II Paternal Grandmother on insulin High Blood Pressure Paternal Grandmother Other Other alryngomalacia-correcte d. Defects Other Other Other intracranial hypertension and seizures Seizures Other Defects Other Cancer Maternal Grandfather Cancer Paternal Grandfather Anesth Problems Neg Hx Autism Neg Hx Blindness Neg Hx Cystic Fibrosis Neg Hx Clotting Disorder Neg Hx Diabetes Mellitus I Neg Hx Hearing Loss Neg Hx Mental Retardation Neg Hx Mental Illness Neg Hx Sickle Cell Anemia Neg Hx Spina Bifida Neg Hx Sudden Neg Hx Anemia Neg Hx Outpatient Encounter Prescriptions as of 04/06/2018 Medication Sig Dispense Refill Vit-Fe Fumarate-FA ( VITAMIN PO) Take by mouth Over the counter brand: with DHA and 800 mcg of folic acid. Takes 2 gummies daily acetaminophen (TYLENOL) 325 MG tablet Take by mouth every 4 hours as needed for Pain acetaminophen (TYLENOL) 500 MG tablet Take by mouth every 4 hours as needed. ibuprofen (MOTRIN) 200 MG tablet Take by mouth every 6 hours as needed. zonisamide (ZONEGRAN) 25 MG capsule Take by mouth 2 times daily. No facility-administered encounter medications on file as of 04/06/2018. Review of Systems Constitutional: Negative for fever and chills. Eyes: Negative for visual disturbance. Respiratory: Negative for cough and shortness of breath. Cardiovascular: Negative for chest pain. Gastrointestinal: Positive for nausea and vomiting. Negative for abdominal pain, diarrhea and constipation. Genitourinary: Negative for dysuria, vaginal bleeding and vaginal discharge. Skin: Negative for dryness. Neurological: Negative for seizures, weakness, light-headedness, numbness and headaches. Psychiatric/Behavioral: Negative for dysphoric mood. Physical Exam Constitutional: She is oriented to person, place, and time. She appears well-developed and well-nourished. No distress. Pulmonary/Chest: Effort normal. No respiratory distress. Abdominal: Soft. She exhibits no distension. There is no tenderness. There is no rebound and no guarding. Musculoskeletal: She exhibits no edema or tenderness. Neurological: She is alert and oriented to person, place, and time. Skin: Skin is warm and dry. She is not diaphoretic. Psychiatric: She has a normal mood and affect. Her behavior is normal. Judgment and thought content normal. FHT: Positive Presentation: N/A Laboratory Test results: Urine dip: no ketones Ultrasound Results: 6 week 0 day IUP Impression/Plan: 22 y.o. at 6w0d with Active Non-Hospital Problems Diagnosis Date Noted Epilepsy affecting , antepartum 04/11/2018 The patient followed with Dr. Sr and [facility] but transferred care to an adult neurologist, Dr Yi two years ago. This was the last time she met with Dr. Yi Last seizure was five years ago Well controlled on no medication Recommend a follow up appointment with Dr. Yi in the next month. Recommend baseline preeclampsia labs. Nausea and vomiting during 04/11/2018 The patient has a history of hyperemesis gravidarum in previous pregnancies requiring a zofran pump and home IV fluid No ketonuria today. No evidence of dehydration today. The patient is tolerating liquids and some solids with a 2 lb weight gain over the past two weeks. Rx for zofran sent to her pharmacy Chem comp today Recommend the patient goes to the hospital with intractable nausea/vomiting. Normal in first trimester 04/11/2018 Dating ultrasound accomplished today The patient will find a primary OB provider Please feel free to consult MFM for any additional needs. Follow up at 12 weeks for NT measurement. Vlad Hay MD I spent 40 minutes on this consultation with greater than 50% in face to face consultation. [facility] Beta hCG Qnt 3671.0 mIU/m High 0.0-2.9 [facility] Comment on above: Result Comment: FEMA LE (NON-) & MALE <3 BORDERLINE 3 - 25 SUGGEST REPEAT TESTING FEMALE () 1 D - 1 WK 25 - 50 1 - 2 WK 50 - 500 2 - 3 WK 100 - 5000 3 - 4 WK 500 - 80689 4 - 5 WK 1000 - 34762 5 - 6 WK [address] - 427102 6 - 8 WK [address] - 518681 2 - 3 [place] [address] - 632146 Performed By: #### 3 [id number] ####LYNNE Misc Micro SubSection, Progesterone Lvlon 8 Protein mass conc 7.9 ng/mL Normal [facility] Comment on above: Result Comment: Male : 0.0 - 0.5 Female: Follicular phase 0.1 - 0.9 Luteal phase 1.8 - 23.9 Ovulation phase 0.1 - 12.0 First trimester 11.0 - 44.3 Second trimester 25.4 - 83.3 Third trimester 58.7 - 214.0 Postmenopausal 0.0 - 0.1Performed At: [facility] [address] [place], [place] [id number] Vincent PhD Ph:[phone] Performed By: #### 3 [id number] ####LYNNE Danielsc Micro SubSection, [facility] Quant[facility] 03-28-2018 Beta hCG Qnt 1333.0 mIU/m Normal [facility] Comment on above: Result Comment: FEMA LE (NON-) & MALE <3 BORDERLINE 3 - 5 SUGGEST REPEAT TESTING FEMALE () 1 D - 1 WK 5 - 50 1 - 2 WK 50 - 500 2 - 3 WK 100 - 5000 3 - 4 WK 500 - 02132 4 - 5 WK 1000 - 25405 5 - 6 WK [address] - 963312 6 - 8 WK [address] - 151557 2 - 3 [place] [address] - 526305 Performed By: #### 3 [id number] ####LYNNE Misc Micro SubSection, C Urineon 03-11-2018 C Urine Final Report: Few Normal skin estephania isolated Normal [facility] Comment on above: Performed By: #### 3 [id number] ####LYNNE Misc Micro SubSection, C Urineon 02-16-2018 C Urine Final Report: 1,000 cfu/ml Streptococcus agalactiae (Group B) noted in Moderate Normal skin estephania isolated Normal [facility] Comment on above: Performed By: #### 2 [id number] ####LYNNE Microbiology [address] [place] [address] Auto Diffon 02-14-2018 Basophils Auto #/vol (Bld) 0.0 E3/mcL Normal 0.0-0.2 [facility] Comment on above: Order Comment: Order Added by Discern Expert. Performed By: #### 2 [id number] ####LYNNE [address] [place] [address] Basophils/100 WBC Auto (Bld) 0.4 % Normal 0.0-2.0 [facility] Comment on above: Order Comment: Order Added by Discern Expert. Performed By: #### 2 [id number] ####LYNNE [address]Feuc[address] [place] [address] Eos Absolute 0.3 E3/mcL Normal 0.0-0.7 [facility] Comment on above: Order Comment: Order Added by Discern Expert. Performed By: #### 2 [id number] ####LYNNE [address]zqc[address] [place] [address] Eosinophils/100 WBC Auto (Bld) 4.5 % Normal 0.0-11.0 [facility] Comment on above: Order Comment: Order Added by Discern Expert. Performed By: #### 2 [id number] ####LYNNE [address]oeYlid[address] [place] [address] Lymphocytes Auto #/vol (Bld) 2.1 E3/mcL Normal 1.2-3.4 [facility] Comment on above: Order Comment: Order Added by Discern Expert. Performed By: #### 2 [id number] ####LYNNE [address] [place] [address] Lymphocytes/100 WBC Auto (Bld) 32.7 % Normal 20.0-55.0 [facility] Comment on above: Order Comment: Order Added by Discern Expert. Performed By: #### 2 [id number] ####LYNNE [address]bu[address]up[address] [place] [address] Loíza Absolute 0.4 E3/mcL Normal 0.0-0.7 [facility] Comment on above: Order Comment: Order Added by Discern Expert. Performed By: #### 2 [id number] ####LYNNE [address]FatYcil[address] [place] [address] Monocytes/100 WBC Auto (Bld) 5.4 % Normal 0.0-10.0 [facility] Comment on above: Order Comment: Order Added by Discern Expert. Performed By: #### 2 [id number] ####LYNNE [address]VxaRedj[address] [place] [address] Neutro Absolute 3.7 E3/mcL Normal 1.4-6.5 [facility] Comment on above: Order Comment: Order Added by Discern Expert. Performed By: #### 2 [id number] ####LYNNE [address] [place] [address] Neutro Auto 57.0 % Normal 37.0-75.0 [facility] Comment on above: Order Comment: Order Added by Discern Expert. Performed By: #### 2 [id number] ####LYNNE [address] [place] [id number] CBC w/ Auto Diffon 8 Erythrocyte distribution width Auto Ratio (RBC) 13.1 % Normal 11.5-14.5 [facility] Comment on above: Performed By: #### 2 [id number] ####LYNNE [address] [place] [id number] Hematocrit Auto Volume Fraction (Bld) 39.1 % Normal 36.0-48.0 [facility] Comment on above: Performed By: #### 2 [id number] ####LYNNE [address] [place] [id number] Hemoglobin mass conc (Bld) 13.0 g/dL Normal 12.0-16.0 [facility] Comment on above: Performed By: #### 2 [id number] ####LYNNE [address] [place] [id number] MCH Auto Entitic mass (RBC) 27.8 pg Normal 27.0-31.0 [facility] Comment on above: Performed By: #### 2 [id number] ####LYNNE [address] [place] [address] MCHC Auto mass conc (RBC) 33.2 g/dL Normal 33.0-37.0 [facility] Comment on above: Performed By: #### 2 [id number] ####LYNNE [address] [place] [address] MCV Auto Entitic volume (RBC) 83.9 fL Normal 78.0-100.0 [facility] Comment on above: Performed By: #### 2 [id number] ####LYNNE [address] [place] [id number] Platelet mean volume Auto Entitic volume (Bld) 8.0 fL Normal 7.4-11.0 [facility] Comment on above: Performed By: #### 2 [id number] ####LYNNE [address]wiYrle[address] [place] [address] Platelets Auto #/vol (Bld) 246 E3/mcL Normal 130-400 [facility] Comment on above: Performed By: #### 2 [id number] ####LYNNE [address]seHdqk[address] [place] [address] RBC Auto #/vol (Bld) 4.67 E6/mcL Normal 3.90-5.40 [facility] Comment on above: Performed By: #### 2 [id number] ####LYNNE LeyvaLjlAotl[address]9 [place] [address] WBC Auto #/vol (Bld) 6.6 E3/mcL Normal 3.6-11.0 [facility] Comment on above: Performed By: #### 2 [id number] ####LYNNE LeyvaWzrYolf[address] [place] [address] Prolactin Lvlon 02-04-2018 Protein mass conc 5.5 ng/mL Normal [facility] Comment on above: Result Comment: Male 4.0 - 15.2 Female 4.8 - 23.3Performed At: [facility] [address] [id number] Vincent PhD Ph:[phone] Performed By: #### 1 [id number] ####LYNNE [facility] [address] [place] [id number] BhCG Quanton 02-03-2018 Beta hCG Qnt <0.6 Normal 0.0-2.9 [facility] Comment on above: Result Comment: FEMA LE (NON-) & MALE <3 BORDERLINE 3 - 25 SUGGEST REPEAT TESTING FEMALE () 1 D - 1 WK 25 - 50 1 - 2 WK 50 - 500 2 - 3 WK 100 - 5000 3 - 4 WK 500 - 91502 4 - 5 WK 1000 - 33958 5 - 6 WK [address] - 717311 6 - 8 WK [address] - 309906 2 - 3 [place] [address] - 337860 Performed By: #### 2 [id number] ####LYNNE [address] [place] [address] TSHon 02-03-2018 Thyrotropin Qn 0.93 mIU/m Normal 0.30-5.60 [facility] Comment on above: Performed By: #### 2 [id number] ####LYNNE [address] [place] [address] US Pelvis Non-OB Completeon 02-03-2018 US Pelvis Non-OB Complete Exam Date/Time:02/03/2018 13:50 EDTReason for Exam:PELVIC PAIN;Pelvic painReportSTUDY:US Pelvis Non-OB Complete; 02/03/2018 1:50 pmINDICATION:Pelvic pain.COMPARISON:None. CESSION NUMBER(S):[id number] CLINICIAN:Sagar EppersonTECHNIQUE:Multip le multiplanar static little scale, color and spectral waveform sonographic images of the pelvis were obtained. Transabdominal and endovaginal ultrasound was performed.FINDINGS:UTER US:The uterus measures 8.4 x 3.4 x 5.1 cm, slightly retroverted. Of note are prominent peripheral myometrial vessels and varices suggesting pelvic congestion syndromeENDOMETRIUM:Nor mal thickness; 6 mm.RIGHT ADNEXA:The right ovary measures: within normal limitsParenchymal texture: Homogeneous with several folliclesNormal arterial and venous flow present.LEFT ADNEXA:The left ovary measures: within normal limitsParenchymal texture: Homogeneous with several folliclesNormal arterial and venous flow present.CUL DE SAC:No gross free fluid is seen in the pelvic cul-de-sac.OTHER:None significant.IMPRESSION: Exam Date/Time:02/03/2018 13:50 EDTReport1. Suspected pelvic congestion syndrome FINAL REPORT Dictated: 02/03/2018 4:16 pm Rickie Carias MD ASigned (Electronic Signature): 02/03/2018 4:16 pmSigned by: Rickie Carias MD Technologist: HERRERA Normal [facility] US Transvaginal Non-OBon US Transvaginal Non-OB Exam Date/Time:02/03/2018 13:50 EDTReason for Exam:PELVIC PAIN;Pelvic painReportSTUDY:US Pelvis Non-OB Complete; 02/03/2018 1:50 pmINDICATION:Pelvic pain.COMPARISON:None. CESSION NUMBER(S):[id number] CLINICIAN:Sagar Miller:Multip le multiplanar static little scale, color and spectral waveform sonographic images of the pelvis were obtained. Transabdominal and endovaginal ultrasound was performed.FINDINGS:UTER US:The uterus measures 8.4 x 3.4 x 5.1 cm, slightly retroverted. Of note are prominent peripheral myometrial vessels and varices suggesting pelvic congestion syndromeENDOMETRIUM:Nor mal thickness; 6 mm.RIGHT ADNEXA:The right ovary measures: within normal limitsParenchymal texture: Homogeneous with several folliclesNormal arterial and venous flow present.LEFT ADNEXA:The left ovary measures: within normal limitsParenchymal texture: Homogeneous with several folliclesNormal arterial and venous flow present.CUL DE SAC:No gross free fluid is seen in the pelvic cul-de-sac.OTHER:None significant.IMPRESSION: Exam Date/Time:02/03/2018 13:50 EDTReport1. Suspected pelvic congestion syndrome FINAL REPORT Dictated: 02/03/2018 4:16 pm Rickie Carias MD ASigned (Electronic Signature): 02/03/2018 4:16 pmSigned by: Rickie Carias MD Technologist: [facility] Normal [facility] Chlamydia GC by PCRon 2017 Chlamydia by PCR. Not Detected Normal Not Detected [facility] Comment on above: Result Comment: Xper t CT/NG Assay performance has not been evaluated in patients less than 14 years of age. Performed By: #### 3 [id number] ####LYNNE Danielsc Micro SubSection, Gonorrhoeae by PCR Not Detected Normal Not Detected [facility] Comment on above: Result Comment: Xper t CT/NG Assay performance has not been evaluated in patients less than 14 years of age. Performed By: #### 3 [id number] ####LYNNE Misc Micro SubSection, POC Strep Aon 08-23-2017 Strep A Screen Negative Normal Negative [facility] Comment on above: Performed By: #### C [id number] ####LYNNE POC [address] [place] [address] Vital Signs Date Time Vital Sign Value Performing Clinician Faci lity 11-26-2020 05:32-0400 Diastolic blood pressure 54 mm[Hg] No Pcp Required [facility] 11-26-2020 05:32-0400 Heart rate 60 /min No Pcp Required [facility] 11-26-2020 05:32-0400 Respiratory rate 16 /min No Pcp Required [facility] 11-26-2020 05:32-0400 SaO2% (BldA) [Mass fraction] 95 % No Pcp Required [facility] 11-26-2020 05:32-0400 Systolic blood pressure 121 mm[Hg] No Pcp Required [facility] Encounters Encounter Date Encounter Type Care Provider Facility Start: 08-17-2023 End: 08-17-2023 Emergency department patient visit LAILA HOLLINGSWORTH [facility] Start: 07-25-2023 End: 07-25-2023 ambulatory KENA DE LA CRUZ Facility:[facility] Start: 03-10-2023 End: 03-11-2023 Evaluation and management of inpatient [facility] Start: 03-09-2023 End: 03-13-2023 Emergency department patient visit RICKIE HART [facility] Start: 03-09-2023 End: 03-10-2023 ambulatory [facility] Start: 12-07-2022 ambulatory LAILA HOLLINGSWORTH [facility] Start: 12-07-2022 Encounter for genera l adult medical examination without abnormal findings [facility]ILA [facility] Start: 07-15-2022 End: 07-15-2022 Emergency department patient visit [facility] Start: 02-01-2022 ambulatory SELF SELF Facility:[facility] Start: 01-25-2022 ambulatory LAILA HOLLINGSWORTH Facility: [facility] Start: 01-25-2022 End: 01-25-2022 Office outpatient visit 15 minutes Joselin Sotelo MD Work Phone: Division of Hematology & Oncology Comment on above: Bleeding disorder (P rimary Dx) Start: 12-14-2021 ambulatory JOSELIN Joyner lity:[facility] Start: 11-12-2021 End: 11-12-2021 Emergency department patient visit SUKUMAR RODRIGUES Facility:[facility] Start: 11-26-2020 End: 11-26-2020 Emergency department patient visit Toshia Regan [facility] Start: 02-11-2020 End: 02-12-2020 Patient encounter procedure SUSAN SAMUEL Facility:[facility] Start: 12-21-2019 End: 12-22-2019 Patient encounter procedure SUSAN SAMUEL Facility:[facility] Start: 10-31-2019 End: 11-01-2019 Patient encounter procedure SUSAN SAMUEL Facility:[facility] Start: 10-25-2019 End: 10-25-2019 Patient encounter procedure SUSAN SAMUEL Facility:[facility] Start: 10-17-2019 End: 10-18-2019 Patient encounter procedure SUSAN SAMUEL Facility:[facility] Start: 08-28-2019 End: 08-29-2019 Patient encounter procedure SUSAN SAMUEL Facility:[facility] Start: 08-06-2019 End: 08-06-2019 Patient encounter procedure SUSAN SAMUEL Facility:[facility] Start: 07-27-2019 End: 07-27-2019 Patient encounter procedure NONE NONE Facility:[facility] Start: 10-13-2018 End: 10-13-2018 Patient encounter procedure KELLE [facility] Start: 10-10-2018 End: 10-10-2018 Patient encounter procedure [facility] Start: 04-27-2018 End: 04-27-2018 Emergency department patient visit Jadon Sanchez Facility:[facility] Start: 04-06-2018 End: 04-07-2018 Patient encounter procedure VLAD BANUELOSCARMINA [facility] Start: 04-06-2018 End: 04-06-2018 Patient encounter procedure VLAD EHRCARMINA [facility] Start: 03-30-2018 End: 03-31-2018 Patient encounter [facility] Facility:[facility] Start: 03-30-2018 Patient encounter Facil ity:[id number] Start: 03-28-2018 End: 03-29-2018 Patient encounter Yanci Dustin Facility:[facility] Start: 03-28-2018 Patient encounter Facil [id number] Start: 03-09-2018 End: 03-10-2018 Patient encounter Sagar Epperson Facility:[facility] Start: 03-09-2018 End: 03-10-2018 Patient encounter Sagar Epperson Facility:[facility] Start: 03-09-2018 Patient encounter Facil [id number] Start: 02-14-2018 End: 02-15-2018 Patient encounter Sagar Epperson Facility:[facility] Start: 02-14-2018 Patient encounter Facil [id number] Start: 02-11-2018 End: 02-11-2018 Patient encounter Sagar Epperson Facility:[facility] Start: 02-03-2018 End: 02-04-2018 Patient encounter Sagar Epperson Facility:[facility] Start: 02-03-2018 Patient encounter Facil [id number] Start: 02-01-2018 End: 02-02-2018 Patient encounter Sagarmaral Epperson Facility:[facility] Start: 02-01-2018 Patient encounter Facil [id number] Start: 01-31-2018 End: 02-01-2018 Patient encounter Sagarmaral Epperson Facility:[facility] Start: 08-23-2017 End: 08-23-2017 Patient encounter Susan Callahan Facility:[facility] Procedures Date Procedure Procedure Detail Performing Clinician Start: 01-25-2022 Assay of ferritin Sherwin Sotelo MD Work Phone: Start: 01-25-2022 C-reactive protein Imer Sotelo MD Work Phone: Start: 01-25-2022 CBC AND ELECTRONIC DIFF Joselin Sotelo MD Work Phone: Start: 01-25-2022 Complete blood count with white cell differential, automated Joselin Sotelo MD Work Phone: Plan of Treatment Date Care Activity Detail Author Start: 03-04-2022 Influenza vaccination INFLUENZA VACC INE (#1) [facility] Start: 02-01-2022 End: 02-01-2022 Telemedicine consultation with patient 02/01/2022 Telemedicine Hematology Joselin Judge MD [address] [place] [address] Division of Hematology & Oncology Start: 01-25-2022 End: 01-25-2023 FACTOR VII ACTIVITY [facility] Comment on above: Expected: 01/25/2022 , Expires: 01/25/2023 Start: 01-25-2022 End: 01-25-2023 FACTOR XIII ACTIVITY [facility] Comment on above: Expected: 01/25/2022 , Expires: 01/25/2023 Start: 01-25-2022 End: 01-25-2023 RISTOCETIN COFACTOR [facility] Comment on above: Expected: 01/25/2022 (Approximate), Expires: 01/25/2023 Start: 01-25-2022 End: 01-25-2023 VON WILLEBRAND BATTERY AGN + FACTOR VIII [facility] Comment on above: Expected: 01/25/2022 (Approximate), Expires: 01/25/2023 Start: 2015 Screening for malign ant neoplasm of cervix CERVICAL CANCER SCREENING DISCUSSION [facility] Start: 2013 Third diphtheria, tetanus and acellular pertussis (DTaP) vaccination TDAP (ADULT) [facility] Start: 2012 Tetanus vaccination TETANUS [facility] Start: 2009 HIV screening HIV SCREENING DISCUSSION [facility] Start: 1994 COVID-19 VACCINE (#1) COVID-19 VACCI NE (#1) [facility] Start: 1994 Hepatitis C antibody , confirmatory test HEPATITIS C VIRUS SCREENING [facility] VWDB-SPECIAL COAG VWDB-SPECIAL C OAG Lab Routine Bleeding disorder 01/25/2022 2:53 PM EDT [facility] Immunizations Immunization Date Immunization Notes Care Provider Fa cility 07-18-2012 influenza virus vaccine, unspecified formulation Joselin Peters MD Work Phone: [facility] Payers Date Payer Category Payer Private Health Insurance [facility] [employer] [id number] 2020-Present [phone] [address] [address] [place] [address] [id number] 2020 Unknown [id number] 2018 Unknown 2017 Self-pay 1994 Unknown [id number] [id number] 79 1994 Unknown [id number] 2.16.840.1.291766.3.579.2.4 79 1994 Unknown [id number] 2.16.840.1.693314.3.579.2.4 79 1994 Unknown [id number] 2.16.840.1.903010.3.579.2.4 79 1994 Unknown [id number] 2.16.840.1.734198.3.579.2.4 79 1994 Unknown [id number] 2.16.840.1.626235.3.579.2.4 79 1994 Unknown [id number] 2.16.840.1.800610.3.579.2.4 19 1994 Unknown [id number] 2.16.840.1.391995.3.579.2.4 19 1994 Unknown [id number] 2.16.840.1.011492.3.579.2.4 19 1994 Unknown [id number] 2.16.840.1.904102.3.579.2.4 19 1994 Unknown [id number] 2.16.840.1.257579.3.579.2.4 19 1994 Unknown [id number] 2.16.840.1.249968.3.579.2.4 19 1994 Unknown [id number] 2.16.840.1.171811.3.579.2.4 19 1994 Unknown [id number] 2.16.840.1.235099.3.579.2.4 19 1994 Unknown [id number] 2.16.840.1.070630.3.579.2.5 94 1994 Unknown [id number] 2.16.840.1.568947.3.579.2.5 94 1994 Unknown [id number] 2.16.840.1.888355.3.579.2.5 94 1994 Unknown [id number] 2.16.840.1.770710.3.579.2.5 94 1994 Unknown [id number] 2.16.840.1.544107.3.579.2.9 03 1994 Unknown [id number] 2.16.840.1.064736.3.579.2.9 03 1994 Unknown [id number] 2.16.840.1.825552.3.579.2.9 03 1994 Unknown [id number] 2.16.840.1.292768.3.579.2.9 03 1994 Unknown [id number] 2.16.840.1.234008.3.579.2.9 02 1959 Medicaid [id number] 1959 Unknown [id number] Social History Date Type Detail Facility [facility] Tobacco smoking consumption unknown [facility] Start: 10-21-2020 Tobacco smoking status NHIS Never smoked tobacco [facility] Start: 10-21-2020 Tobacco use and exposure Smokeless tobacco non-user [facility] Start: 01-25-2022 Alcohol intake Ex-drinker (finding) [facility] Start: 1994 Sex Assigned At Not on file [facility] Progress note 07-25-2023 Note Date & Type Note Facility 07-25-2023 Note HNO ID: [id number] Author: YUSUF ARANA MD, PhD Service: ? Author Type: Physician Type: Progress Notes Filed: 07/25/2023 11:38 Note Text: [facility] Patient Name: Maciej Haider Date of : 1995 CLINIC NOTE - INITIAL VISIT CHIEF COMPLAINT: BMV Form PRESENT ILLNESS: I have communicated my name and active licensure. The patient's identity and physical location were verified at the time of this visit. Either the patient or their legal quality assurance representative has been informed of the risks and benefits of -- and alternatives to -- treatment through a remote evaluation and consents to proceed with the evaluation remotely. 28 year old female was diagnosed with having seizure like event vs nonepileptic episodes. She was a prior patient of deb Mena. Her last visit with Dr. Yi team was May 2019. She had [facility] in 2011, EEGs were normal. The last event was 2012, the last time used [facility] was 2012. Prior document in [facility] are reviewed: Visit with Dr. Mena 09/16/2011: Maciej is a 16 year old with paroxysmal events (h/o vasovagal syncope and some other events concerning for seizures). Intermittent breakthroughs; X2 in last week. Most recent event involved 'coughing blood' intermittent staring, acting inappropriately (giggly/spacey) - lasting 30 minutes, followed by a generalized motor event lasting 8-10 minutes. Family brought a home video. Reviewed a non-epileptic event characterized by intermittent thrashing, moaning, gasping; duration 8 minutes. IMPRESSION: 1. Non epileptic seizures; 2. H/O vaso vagal syncope - currently resolved. Cardiac evaluation has been non revealing 3. Adjustment disorder (noted social stressors; reviewed HSM scores) PLAN: 1. vEEG for diagnostic evaluation; adolescent psychiatry/social work involvement from first day of admission. Family will bring home video for review with psychiatry team [facility] 09/2011 IMPRESSION AND PLAN: Maciej is a 16 year old girl admitted for video EEG concerning episodes of staring, confusion, then stiffening of her arms and legs, flexion of arms against the chest, falling, then convulsion for 2 to 15 minutes, followed by confusion. Since Apr 2011, she has had 1 or 2 per month, increased during exercise (running) or at time of ovulation or menses. The admission was timed with the expected onset of this month's menses. Maciej also reports that she typically spits up blood from her throat just before the seizure. In the past, 2008, she had episodes of syncope during long distance running. EKG, tilt table, and cardiac echo were reportedly normal at [facility]. 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 Neurological examination is normal. Three previous EEGs and an outside MRI were normal. On admission she was taking Zonegran. This 3 day video EEG evaluation is within normal limits. No epileptiform discharges, EEG seizures or clinical events were recorded. The family declined to stay longer for more video EEG recording. Based on the normal interictal EEG, the clinical description of the events, and Dr. Patton's previous review of a home video, it is likely that the motor episodes in question are non-epileptic in nature. For the moment, family elected to restart Zonegran. First visit with Dr. Yi 01/28/2012: IMPRESSION: History of possible seizures since the age of [age] years old, occur during menses only, once or twice a month. no risk factors for seizures. The possibility of non epileptic events was discussed with the patient She was continued on Zonegram and now she is 9 weeks I had an extensive discussion with the patient and her mother. The possibility of this events being epileptic was discussed since they happen only around her menses. However none was capture during PMU admission. I encouraged to continue AEDS since seizures can increase in frequency during . I also explained to her that the critical time during is the first 9 weeks. She has not been taking folic acid and I encouraged her to do so I will not check levels today sincne she lost 20 lbs and she had normal levels 3 months ago PLAN Continue Zonegram 125 mg bid Folic acid 3 mg daily The last visit with Dr. Yi team 05/17/2019: Patient reports her last seizure was in 2012. She stopped her medications at that time. She is on no medications. Interval history at on 07/25/2023; No seizures or spells She says that the last one was 2012. Had OSH visit 03/10/2023 for a fall at home and strained right knee, EEG was done and had a normal EEG. 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 [facility] History of Present illness Narrative 01-25-2022 Annmarie Baker RN - 01/25/2022 4:00 PM EDTGterrance Peters MD - 01/25/2022 4:00 PM EDT Note Date & Type Note Facility 01-25-2022 History of Present illness Narrative Maciej is here for follow up and labs. Reports she stopped taking the Venlafaxine as ordered and is no longer having vaginal bleeding, it stopped about 2 weeks ago. She denies any other signs of bleeding but reports she is still bruising easily. States she's noticed her lymph nodes have been swollen for the last 3 weeks but not painful. Denies SOB, CP, palpitations, dizziness/weakness. Hematology Follow Up Visit Reason for visit: yandel Haider is referred in consultation by Dr. Cabello ([facility]) for evaluation of a bleeding disoder. She is a 26 y.o. female with a history of epilepsy, gestational diabetes, migraines WHITLOCK, depression and anxiety and history of hyperemesis gravidarum. Patient underwent a laparoscopic hysterectomy by Dr. Martinez on 10/20/2021. She had some postop bleeding and continues to have vaginal bleeding secondary to an ovarian cyst. Patient reports history of excessive bleeding with recurrent unexplained nosebleeds, longstanding history of gum bleed with minor trauma of toothbrushing, history of menorrhagia since menarche (required to change pads every 1-1 1/2 hour). Patient underwent an endometrial ablation in 2019 and finally a hysterectomy in October 2021. History of hematuria with negative urology work up. She continues to have vaginal bleeding and requires to change pads every 3 hours, questionable associated with an ovarian cyst. Multiple dental extractions with bleeding up to 24 hours post procedure (most recent 1 week ago). Denies any bleeding complications with cholecystectomy in 2012. She has 4 vaginal deliveries with no bleeding complications. Has on/off spontaneous bruises. Patient has received on/off ferrous sulfate to avoid iron deficiency. She has never received blood product support for these bleeding episodes or specific treatment for a bleeding disorder. She does not have a family history of bleeding disorder. Prior lab work: 11/24/2021 Factor VIII 51% VWAg 63% VW Activity 45% Factor XI 105% PTT 27.1 PT 10.3 11/02/2021 Platelets 267 04/06/2018 ABO type O 04/03/2013 Platelets aggregation panel ADP Max Aggreg 70 - 100 % Max 25 Low ATP Rel by ADP 0.2 - 1.6 nM 0.00 Low ADP 20 Max Aggreg 70 - 100 % Max 97 ATP Rel by ADP 20 0.2 - 1.6 nM 0.67 Arach Max Aggreg 66 - 100 % Max 93 ATP Rel by Aracha 0 - 1.3 nM 0.69 Collagen Max Aggreg 70 - 100 % Max 93 ATP Rel by Collagen 0.4 - 1.9 nM 1.06 Epinephrine 67 - 95 % Max 10 Low Epin 100 Max Aggreg 67 - 95 % Max 90 ATP Rel by Epi 100 0.3 - 1.7 nM 1.14 Risto 1500 Max Agg 75 - 100 % Max 100 Risto 1200 Max Agg 68 - 100 % Max 100 Risto 900 Max Agg 0 - 90 % Max 96 High Risto 600 Max Agg 0 - 26 % Max 2 There is decreased platelet aggregation and stimulated dense granule release to ADP (5 uM) and epinephrine (10 uM). Aggregation and dense granule release are normal at higher doses of ADP (20 uM) and epinephrine (100 uM). The pattern of platelet reactivity is nonspecific. The results could be seen with a non-aspirin drug effect or an intrinsic platelet dysfunction. The ristocetin induced platelet aggregation shows a normal dose response. Factor IX 96% Factor XI 100% Factor XII 76% 02/13/2013 Factor VIII 68% VW AG 56% RCO 44% Collagen Binding 44% Von Willebrand multimer: normal amount and pattern. Col/Epi Closure time (CT) 242 (< 199 Sec) Col/ADP CT 120 (< 118 Sec) PT 11.3 INR 1.0 PTT 34.2 ABO O+ 01/12/2013 Platelets 275. PT 10.9 INR 0.9 PTT 30.5 Fibrinogen 385 Col/EPI CT > 300 (< 199) Col/ADP CT > 208 ( < 118) Subjective/Interim history: since last visit on 12/14/2021, patient continues to have on/off nose bleeding, gum bleeding and easy bruises. Vaginal bleeding finally stopped about 2-3 weeks ago, after 2 months of bleeding. She took Tranexamic 1500 mg tid x 4 days, as indicated during her initial visit. It slowed down her vaginal bleeding and the ovarian cyst went down from 8 to 4 cm. She also discontinued Venlafaxine about 2-3 weeks ago. ROS: Constitutional no fever, chills, weight loss Eyes no change in vision ENT no tinnitus, change in hearing, WHITLOCK Cardiovascular no CP, SOB, syncope, palpitations Respiratory no cough, wheezing, CP, SOB Gastrointestinal no abdominal pain, nausea, vomiting, diarrhea, bleeding, difficulty swallowing Genitourinary No dysuria, urine color, urgency, frequency, bleeding Integumentary No rash, growths, lymphadenopathy Musculoskeletal no for LBP, no joint pain/swelling. Hematology: on/off nose bleeding, gum bleeding and easy bruises. Vaginal bleeding finally stopped about 2-3 weeks ago, after 2 months of bleeding. Psych: no depressed mood All other (remaining) systems reviewed and negative Past Medical History: Diagnosis Date Anxiety and depression Endometriosis Epilepsy History of root canal procedure 12/09/2021 Past Surgical History: Procedure Laterality Date HYSTERECTOMY 10/20/2021 [facility] OTHER SURGICAL 2019 Tube tied and Tube ovary removed. OTHER SURGICAL 2013 Gull Bladder Removed CHOLECYSTECTOMY Family History Problem Relation Age of Onset Heart Disease - Other Father Hypertension Father Diabetes Father Thyroid Disease Sister Pseudotumor Cerebri Daughter Seizures/Epilepsy Daughter Arrhythmia Daughter Thyroid Disease Daughter Social Social History Tobacco Use Smoking status: Never Smoker Smokeless tobacco: Never Used Substance Use Topics Alcohol use: Not Currently Medications None Physical exam There were no vitals taken for this visit. General: WNWD age appropriate female, A&Ox3, in NAD HEENT: PERR, EOMI, no scleral icteris, Nose and throat clear, -LAD CV: HRR&R, No Murmur, Rub, or Gallop; normal S1, S2 Lungs: CTAB, normal excursion Abdomen: Soft and non-tender, no palpable organomegaly, grossly non distended Extremities: No edema, symmetrical, grossly normal appearing joints Neuro: Cr N II-XII grossly intact, Generally non-focal Skin: Normal color and turgor, no Rashes, suspicious lesions, petechiae, or ecchymoses Psych: appropriate mood and affect for the clinical situation Assessment and Plan: Ms. Haider is a 26 years old female with a history of excessive bleeding with recurrent unexplained nosebleeds, longstanding history of gum bleed with minor trauma, longstanding history of excessive menstrual bleeding going back to menarche, patient underwent an endometrial ablation in 2019 and finally a hysterectomy in October 2021, hematuria and post hysterectomy bleeding from October 2021 to December 2021. Work up was negative for VWD. It showed evidence of an abnormal platelets aggregation which could be related to medication or an intrinsic platelets defect. Patient has been on Venlafaxine for 4 months up to 3 weeks ago. No prior use of SSRI. Vaginal bleeding slowed down with tranexamic acid and stopped about 2-3 weeks ago. Ovarian cysts has decreased from 8 to 4 cm. Patient is off Venlafaxine last 2-3 weeks. Plan: -Lab work today with PFA, Von Willebrand work up, factor VII and XIII -Avoid any NSAID's. -Continue monitoring. Patient understood the discussion and agrees with the plan. F/U appointment next week (phone visit) documented in this encounter [facility] Instructions 01-25-2022 Patient Instructions Note Date & Type Note Facility 01-25-2022 Instructions Annmarie Baker RN - 01/25/2022 2:09 PM EDT Follow up in 1 week telephone visit. Get labs drawn today prior to leaving the office. We will call/my chart message you regarding the results. Provider: Dr. Joselin Sotelo Primary Nurse: Annmarie Medication refills Please allow 1 week for all medication refills. You may request refills via [employer] or by calling [phone]. Paperwork Please allow 2 weeks to complete disability, FMLA, and insurance paperwork. Please clarify what to do once they are completed, including any fax numbers or addresses needed. [employer] is a secure way to get access to your labs online. Once you're online, you may need to send a message to the office to release results so that you can review the results of your blood tests. For non-emergent concerns, please send us a [employer] message but describe your issue fully. As an example, tell us how long you've had the symptom, what makes it better or worse, what you've done for it already) and one of our nurses or nurse practitioners will respond [email or web address]. For questions or concerns regarding [employer] access or technical dificulties, please call [phone] or toll free at . Appointment's/ No show visits If you arrive late to your scheduled appointment, you may be asked to reschedule your visit. Please call [phone] at least 24 hours in advance if you are not able to make it to your scheduled visit. If you have three no show visit's within one year, you will be discharged from our practice. documented in this encounter [facility] Evaluation note Note Date & Type Note Facility Evaluation note Diagnosis Bleeding disorder- Primary Unspecified hemorrhagic conditions documented in this encounter [facility] Summary Purpose Family History No Family History Records FoundNo Family History Records FoundNo Family History Records FoundNo Family History Records FoundNo Family History Records FoundNo Family History Records FoundNo Family History Records FoundNo Family History Records FoundNo Family History Records FoundNo Family History Records FoundNo Family History Records Found Advance Directives No Advanced Directives Records FoundNo Advanced Directives Records FoundNo Advanced Directives Records FoundNo Advanced Directives Records FoundNo Advanced Directives Records FoundNo Advanced Directives Records FoundNo Advanced Directives Records FoundNo Advanced Directives Records FoundNo Advanced Directives Records FoundNo Advanced Directives Records FoundNo Advanced Directives Records Found Additional Source Comments INFORMATION SOURCE (unrecogn ized section and content) DATE CREATED AUTHOR 04/30/2018 [facility] DATE CREATED AUTHOR AUTHOR'S ORGANIZ ATION 05/02/2018 [facility] DATE CREATED AUTHOR AUTHOR'S ORGANIZ ATION 06/03/2018 [facility] DATE CREATED AUTHOR AUTHOR'S ORGANIZ ATION 10/14/2018 [facility] DATE CREATED AUTHOR AUTHOR'S ORGANIZ ATION 02/14/2020 [facility] DATE CREATED AUTHOR AUTHOR'S ORGANIZ ATION 11/29/2020 [facility] DATE CREATED AUTHOR AUTHOR'S ORGANIZ ATION 02/01/2022 [facility] DATE CREATED AUTHOR AUTHOR'S ORGANIZ ATION 12/12/2022 [facility] DATE CREATED AUTHOR AUTHOR'S ORGANIZ ATION 03/17/2023 [facility] DATE CREATED AUTHOR AUTHOR'S ORGANIZ ATION 07/26/2023 [facility] DATE CREATED AUTHOR AUTHOR'S ORGANIZ ATION 08/24/2023 [facility] <item> Privacy Markings (unrecogniz ed section and content) Section Author: Gill Wright PROHIBITION ON REDISCLOSURE OF CONFIDENTIAL INFORMATION This notice accompanies a disclosure of information concerning a client made to you with the consent of such client. Reason for Visit (unrecogniz ed section and content) Reason Comments Other Bleeding disorder Care Teams (unrecognized sec tion and content) Brushing Operator Relationship Specialty Start Date End Date Laila Hollingsworth, HYDRAULIC CONTROLS TECHNICIAN [address] [place] [address] PCP - General Nurse Practitioner - Family 12/14/21 FOR RECORDS PERTAINING TO PATIENTS WHO ARE OR HAVE BEEN ENROLLED IN A CHEMICAL DEPENDENCY/SUBSTANCEABUSE PROGRAM, SOME INFORMATION MAY BE OMITTED. This clinical summary was aggregated from multiple sources. Caution should be exercised in using it in the provision of clinical care. This summary normalizes information from multiple sources, and as a consequence, information in this document may materially change the coding, format and clinical context of patient data. In addition, data may be omitted in some cases. CLINICAL DECISIONS SHOULD BE BASED ON THE PRIMARY CLINICAL RECORDS. [employer] [facility]. provides no warranty or guarantee of the accuracy or completeness of information in this document.
== END | disposition home or self-care (01) ==
PROVIDERS: PCP Nurse Practitioner Family; Referring Provider Nurse Practitioner Women's Health; Visit Provider Nurse Practitioner Women's Health
DX: N64.4 Mastodynia (principal); N63.10 Unspecified lump in the right breast, unspecified quadrant
CPT/HCPCS: 76642; 77062; 77066; 88305; G0279